=== PATIENT | male | born 1970 | race Caucasian/White ===

== ENCOUNTER 2017-08-04 18:45 | Emergency (ER) | payer OTHER ==
[2017-08-04 19:35] LABS: Appearance,Urine Clear (Clear); Bilirubin,Urine Negative (Negative); Blood,Urine Negative (Negative); Color,Urine Yellow; Glucose,Urine (UA) Negative (Negative); Ketones,Urine Negative (Negative); Leukocyte Esterase,Urine Negative (Negative); Nitrite,Urine Negative (Negative); PH, Urine 5.5 (5.0-8.0); Protein,Urine Negative (Negative); Specific Gravity,Urine 1.012 (1.001-1.035); Urobilinogen,Urine <2.0 mg/dL (<2.0)
[2017-08-04] MEDS ORDERED: LORazepam 2 MG/ML INJ IV STA ×2 (19:51→21:26)
[2017-08-04 19:53] LABS: Amphetamine Screen,Urine Not Detected (NotDetected); Barbiturate Screen,Urine Not Detected (NotDetected); Benzodiazepines Screen,Urine Detected (NotDetected); Cocaine Screen,Urine Not Detected (NotDetected); Methadone Screen, Urine Not Detected (NotDetected); Opiate Screen,Urine Not Detected (NotDetected); Oxycodone Screen, Urine Not Detected (NotDetected); Phencyclidine Screen,Urine Not Detected (NotDetected); Tricyclic Antidepressant,Urine Not Detected (NotDetected); Urn Cannabinoid Scrn Not Detected (NotDetected)
[2017-08-04 20:01] LABS: Basophils % (A) 1 %; Eosinophils # (A) 0.1 k/uL (0-0.7); Eosinophils % (A) 1 %; HCT 48.9 % (39.0-53.0); HGB 16.2 gm/dL (13.0-17.5); Lymphocytes # (A) 2.6 k/uL (1.0-4.8); Lymphocytes % (A) 36 %; MCH 32.7 pg (25.0-35.0); MCV 98.9 fL (80.0-100.0); Mean Platelet Volume 6.5; Monocytes # (A) 0.3 k/uL (0-1.0); Monocytes % (A) 5 %; Neutrophils % (A) 56 %; Platelet Count 348 k/uL (150-450); RBC 4.95 m/uL (4.30-5.90); RDW 12.7 % (11.5-15.5); WBC 7.2 k/uL (3.8-10.6)
[2017-08-04] MEDS: 1: MVI, ADULT NO.4 WITH VIT K 10 ML, THIAMINE 100 MG, FOLIC ACID 1 MG in SODIUM CHLORIDE IV SCH ×4 (20:01)
[2017-08-04 20:10] LABS: INR 1.1 (<1.2); Prothrombin Time 10.4 sec (9.0-12.0)
[2017-08-04 20:11] LABS: ALT 43 U/L (21-72); AST 35 U/L (17-59); Albumin 4.4 g/dL (3.5-5.0); Alkaline Phosphatase 55 U/L (38-126); Amylase 49 U/L (30-110); Anion Gap 11 mmol/L; Blood Urea Nitrogen 9 mg/dL (9-20); Carbon Dioxide 33 mmol/L (22-30); Chloride 100 mmol/L (98-107); Glucose 100 mg/dL (74-99); Lipase 99 U/L (23-300); Magnesium 1.8 mg/dL (1.6-2.3); Phosphorus 4.3 mg/dL (2.5-4.5); Potassium 4.6 mmol/L (3.5-5.1); Sodium 144 mmol/L (137-145); Total Bilirubin 0.4 mg/dL (0.2-1.3); Total Protein 7.5 g/dL (6.3-8.2)
[2017-08-04 20:15] LABS: Alcohol 263 mg/dL
--- NOTE | 2017-08-04 20:41 | CT ---
EXAMINATION TYPE: CT brain wo con DATE OF EXAM: 08/04/2017 COMPARISON: NONE HISTORY: Altered mental status CT DLP: mGycm. Automated Exposure Control for Dose Reduction was Utilized. TECHNIQUE: CT scan of the head is performed without contrast. FINDINGS: Ventricles and sulci appear normal. There is no mass effect nor midline shift. There is n o sign of intracranial hemorrhage. The calvarium is intact. I see no bony destructive process. CONCLUSION: Normal CT scan of the brain.
[2017-08-04] MEDS ORDERED: ZIPRASIDONE 20 MG VIAL IM STA (21:26)
[2017-08-04] MEDS ORDERED: NICOTINE 21MG/24HR PATCH TRANSDERM STA (21:28)
--- NOTE | 2017-08-04 21:52 | ED ---
Psych HPI - General Source: patient Mode of arrival: ambulatory <Adelia Vizcaino - Last Filed: 08/04/17 21:46> <Angel Menchaca - Last Filed: 08/05/17 06:53> - General Chief Complaint: Psychiatric Symptoms Stated Complaint: suicidal,etoh Time Seen by Provider: 08/04/17 18:52 - History of Present Illness Initial Comments: 47-year-old male patient presented to the emergency department today with family for alcohol intoxication, dependence, and increased agitation. Family is concerned because patient has been having hallucinations, has been drinking around the clock every day for the last month, and has not been eating or drinking. They state that he will sleep for 2 hours at a time and then wake up and drink more. They state that he becomes violent when they will not get his alcohol for him. Patient is current active member, and has not been going to work. Patient currently denies any symptoms or concerns. He is upset and angry that he is here. He denies any suicidal or homicidal ideation. Patient denies any recent rash, fever, chills, shortness breath, chest pain, abdominal pain, nausea, vomiting, diarrhea, constipation, back pain, numbness, tingling, dizziness, weakness, hematuria, dysuria, urinary urgency, urinary frequency, headache, visual changes, or any other complaints. (Adelia Vizcaino) - Related Data Home Medications Medication Instructions Recorded Confirmed Cholecalciferol [Vitamin D3] 1,000 unit PO DAILY 08/04/17 08/04/17 FLUoxetine HCL [PROzac] 20 mg PO DAILY 08/04/17 08/04/17 Ginkgo Biloba 500 mg PO DAILY 08/04/17 08/04/17 Multivitamins, Thera [Multivitamin 1 tab PO DAILY 08/04/17 08/04/17 (formulary)] Allergies Allergy/AdvReac Type Severity Reaction Status Date / Time No Known Allergies Allergy Verified 08/04/17 19:20 Review of Systems ROS Other: All systems not noted in ROS Statement are negative. <Adelia Vizcaino - Last Filed: 08/04/17 21:46> ROS Other: All systems not noted in ROS Statement are negative. <Angel Menchaca - Last Filed: 08/05/17 06:53> ROS Statement: Those systems with pertinent positive or pertinent negative responses have been documented in the HPI. Past Medical History Past Medical History: No Reported History Past Surgical History: No Surgical Hx Reported Past Psychological History: Anxiety, Depression Smoking Status: Current some day smoker Past Alcohol Use History: Daily Past Drug Use History: None Reported <CharisAdelia - Last Filed: 08/04/17 21:46> General Exam Limitations: no limitations General appearance: alert, in no apparent distress, other (This is a well- developed, well-nourished adult male patient in no acute distress. Patient is agitated and pacing in the room. Reluctant to give information. Vital signs upon presentation are temperature 97.0F, pulse 83, respirations 18, blood pressure 124/87, pulse ox 100% on room air.) Head exam: Present: atraumatic, normocephalic, normal inspection Eye exam: Present: normal appearance, PERRL, EOMI, nystagmus. Absent: scleral icterus, conjunctival injection, periorbital swelling ENT exam: Present: normal exam, normal oropharynx, mucous membranes moist Neck exam: Present: normal inspection. Absent: tenderness, meningismus, lymphadenopathy Respiratory exam: Present: normal lung sounds bilaterally. Absent: respiratory distress, wheezes, rales, rhonchi, stridor Cardiovascular Exam: Present: normal rhythm, tachycardia, normal heart sounds. Absent: systolic murmur, diastolic murmur, rubs, gallop, clicks GI/Abdominal exam: Present: soft, normal bowel sounds. Absent: distended, tenderness, guarding, rebound, rigid Neurological exam: Present: alert, oriented X3, CN II-XII intact Psychiatric exam: Present: agitated, anxious, manic Skin exam: Present: warm, dry, intact, normal color. Absent: rash <Adelia Vizcaino M - Last Filed: 08/04/17 21:46> Vital Signs 08/04/17 08/04/17 08/04/17 18:52 20:06 22:22 Temperature 97 F L Pulse Rate 83 84 67 Respiratory 18 18 18 Rate Blood Pressure 124/87 120/76 120/67 O2 Sat by Pulse 100 98 96 Oximetry 08/05/17 08/05/17 00:18 05:38 Temperature 96.9 F L Pulse Rate 72 86 Respiratory 16 17 Rate Blood Pressure 115/60 144/85 O2 Sat by Pulse 96 97 Oximetry Medical Decision Making - Lab Data Result diagrams: 08/04/17 19:52 08/04/17 19:52 <Adelia Vizcaino - Last Filed: 08/04/17 21:46> - Lab Data Result diagrams: 08/04/17 19:52 08/04/17 19:52 <Angel Menchaca - Last Filed: 08/05/17 06:53> - Medical Decision Making Patient was evaluated by EPS, he does not meet inpatient psychiatric criteria. He is having no more hallucinations, on reevaluation, patient is fairly certain that these hallucinations were not real and he was just pretending. I personally reevaluated the patient, he is not suicidal or homicidal. He has a plan to abstain from alcohol. He is going to join [employer]. Patient will follow-up with his primary care physician. He will return with worsening symptoms. (Angel Menchaca) - Lab Data Lab Results 08/04/17 08/04/17 08/04/17 Range/Units 19:05 19:52 19:52 WBC 7.2 (3.8-10.6) k/uL RBC 4.95 (4.30-5.90) m/uL Hgb 16.2 (13.0-17.5) gm/dL Hct 48.9 (39.0-53.0) % MCV 98.9 (80.0-100.0) fL MCH 32.7 (25.0-35.0) pg MCHC 33.0 (31.0-37.0) g/dL RDW 12.7 (11.5-15.5) % Plt Count 348 (150-450) k/uL Neutrophils % 56 % Lymphocytes % 36 % Monocytes % 5 % Eosinophils % 1 % Basophils % 1 % Neutrophils # 4.0 (1.3-7.7) k/uL Lymphocytes # 2.6 (1.0-4.8) k/uL Monocytes # 0.3 (0-1.0) k/uL Eosinophils # 0.1 (0-0.7) k/uL Basophils # 0.0 (0-0.2) k/uL PT (9.0-12.0) sec INR (<1.2) Sodium 144 (137-145) mmol/L Potassium 4.6 (3.5-5.1) mmol/L Chloride 100 (98-107) mmol/L Carbon Dioxide 33 H (22-30) mmol/L Anion Gap 11 mmol/L BUN 9 (9-20) mg/dL Creatinine 1.04 (0.66-1.25) mg/dL Est GFR (MDRD) Af Amer >60 (>60 ml/min/1.73 sqM) Est GFR (MDRD) Non-Af >60 (>60 ml/min/1.73 sqM) Glucose 100 H (74-99) mg/dL Calcium 10.0 (8.4-10.2) mg/dL Phosphorus 4.3 (2.5-4.5) mg/dL Magnesium 1.8 (1.6-2.3) mg/dL Total Bilirubin 0.4 (0.2-1.3) mg/dL AST 35 (17-59) U/L ALT 43 (21-72) U/L Alkaline Phosphatase 55 (38-126) U/L Total Protein 7.5 (6.3-8.2) g/dL Albumin 4.4 (3.5-5.0) g/dL Amylase 49 (30-110) U/L Lipase 99 (23-300) U/L Urine Color Yellow Urine Appearance Clear (Clear) Urine pH 5.5 (5.0-8.0) Ur Specific [place] 1.012 (1.001-1.035) Urine Protein Negative (Negative) Urine Glucose (UA) Negative (Negative) Urine Ketones Negative (Negative) Urine Blood Negative (Negative) Urine Nitrite Negative (Negative) Urine Bilirubin Negative (Negative) Urine Urobilinogen <2.0 (<2.0) mg/dL Ur Leukocyte Esterase Negative (Negative) Urine Opiates Screen Not Detected (NotDetected) Ur Oxycodone Screen Not Detected (NotDetected) Urine Methadone Screen Not Detected (NotDetected) Ur Propoxyphene Screen Not Detected (NotDetected) Ur Barbiturates Screen Not Detected (NotDetected) U Tricyclic Antidepress Not Detected (NotDetected) Ur Phencyclidine Scrn Not Detected (NotDetected) Ur Amphetamines Screen Not Detected (NotDetected) U Methamphetamines Scrn Not Detected (NotDetected) U Benzodiazepines Scrn Detected H (NotDetected) Urine Cocaine Screen Not Detected (NotDetected) U Marijuana (THC) Screen Not Detected (NotDetected) Serum Alcohol 263 mg/dL 08/04/17 Range/Units 19:52 WBC (3.8-10.6) k/uL RBC (4.30-5.90) m/uL Hgb (13.0-17.5) gm/dL Hct (39.0-53.0) % MCV (80.0-100.0) fL MCH (25.0-35.0) pg MCHC (31.0-37.0) g/dL RDW (11.5-15.5) % Plt Count (150-450) k/uL Neutrophils % % Lymphocytes % % Monocytes % % Eosinophils % % Basophils % % Neutrophils # (1.3-7.7) k/uL Lymphocytes # (1.0-4.8) k/uL Monocytes # (0-1.0) k/uL Eosinophils # (0-0.7) k/uL Basophils # (0-0.2) k/uL PT 10.4 (9.0-12.0) sec INR 1.1 (<1.2) Sodium (137-145) mmol/L Potassium (3.5-5.1) mmol/L Chloride (98-107) mmol/L Carbon Dioxide (22-30) mmol/L Anion Gap mmol/L BUN (9-20) mg/dL Creatinine (0.66-1.25) mg/dL Est GFR (MDRD) Af Amer (>60 ml/min/1.73 sqM) Est GFR (MDRD) Non-Af (>60 ml/min/1.73 sqM) Glucose (74-99) mg/dL Calcium (8.4-10.2) mg/dL Phosphorus (2.5-4.5) mg/dL Magnesium (1.6-2.3) mg/dL Total Bilirubin (0.2-1.3) mg/dL AST (17-59) U/L ALT (21-72) U/L Alkaline Phosphatase (38-126) U/L Total Protein (6.3-8.2) g/dL Albumin (3.5-5.0) g/dL Amylase (30-110) U/L Lipase (23-300) U/L Urine Color Urine Appearance (Clear) Urine pH (5.0-8.0) Ur Specific [place] (1.001-1.035) Urine Protein (Negative) Urine Glucose (UA) (Negative) Urine Ketones (Negative) Urine Blood (Negative) Urine Nitrite (Negative) Urine Bilirubin (Negative) Urine Urobilinogen (<2.0) mg/dL Ur Leukocyte Esterase (Negative) Urine Opiates Screen (NotDetected) Ur Oxycodone Screen (NotDetected) Urine Methadone Screen (NotDetected) Ur Propoxyphene Screen (NotDetected) Ur Barbiturates Screen (NotDetected) U Tricyclic Antidepress (NotDetected) Ur Phencyclidine Scrn (NotDetected) Ur Amphetamines Screen (NotDetected) U Methamphetamines Scrn (NotDetected) U Benzodiazepines Scrn (NotDetected) Urine Cocaine Screen (NotDetected) U Marijuana (THC) Screen (NotDetected) Serum Alcohol mg/dL Disposition <Adelia Vizcaino M - Last Filed: 08/04/17 21:46> Time of Disposition: 06:52 <Angel Menchaca - Last Filed: 08/05/17 06:53> Clinical Impression: Acute alcohol intoxication Disposition: HOME SELF-CARE Condition: Good Instructions: Alcohol Intoxication (ED) Additional Instructions: Patient will follow-up with primary care physician. Referrals: Nonstaff,Physician [Primary Care Provider] - 1-2 days
[2017-08-05] MEDS ORDERED: MENTHOL (NICE) LOZENGE MUCOUS MEM PRN (05:56)
[2017-08-05] MEDS: 1: MVI, ADULT NO.4 WITH VIT K 10 ML, THIAMINE 100 MG, FOLIC ACID 1 MG in SODIUM CHLORIDE IV SCH ×4 (06:57)
[2017-08-05 23:12] VITALS: BP 138/79; PULSE 90; RESP 17; TEMP 96.9
== END 2017-08-05 07:10 | disposition home or self-care (01) ==
LOC: EC 18:45
DX: F10.129 Alcohol abuse with intoxication, unspecified (principal); R45.1 Restlessness and agitation; R44.3 Hallucinations, unspecified; F32.9 Major depressive disorder, single episode, unspecified; F41.9 Anxiety disorder, unspecified; F17.200 Nicotine dependence, unspecified, uncomplicated; Z79.899 Other long term (current) drug therapy; Z53.29 Procedure and treatment not carried out because of patient's decision for other reasons
CPT/HCPCS: 82075; 36415; 80053; 82150; 83690; 83735; 84100; 85025; 85610; 81003; 80306; 80320; 70450; 99284; 96374; 96376; 96372; J2060; J3411; J3486

== ENCOUNTER 2017-10-26 16:59 | Emergency (ER) | payer OTHER ==
[2017-10-26] MEDS ORDERED: LORazepam 2 MG/ML INJ IM STA (17:15)
[2017-10-26] MEDS ORDERED: HALOPERIDOL LACTATE 5 MG/ML 1 ML VIAL IM STA (17:16)
[2017-10-26 18:25] LABS: Amphetamine Screen,Urine Not Detected (NotDetected); Barbiturate Screen,Urine Not Detected (NotDetected); Benzodiazepines Screen,Urine Not Detected (NotDetected); Cocaine Screen,Urine Not Detected (NotDetected); Methadone Screen, Urine Not Detected (NotDetected); Opiate Screen,Urine Not Detected (NotDetected); Oxycodone Screen, Urine Not Detected (NotDetected); Phencyclidine Screen,Urine Not Detected (NotDetected); Tricyclic Antidepressant,Urine Not Detected (NotDetected); Urn Cannabinoid Scrn Not Detected (NotDetected)
--- NOTE | 2017-10-26 19:29 | ED ---
Psych HPI - General Source: patient, family, EMS Mode of arrival: EMS <Angel Kunz - Last Filed: 10/26/17 22:50> <Angel Menchaca - Last Filed: 10/27/17 08:30> - General Chief Complaint: Psychiatric Symptoms Stated Complaint: mental health Time Seen by Provider: 10/26/17 17:15 - History of Present Illness Initial Comments: This 47-year-old white male presents by EMS with police escort. He apparently was quite combative earlier today at the medical clinic. He apparently has a history of many years of service with a history of posttraumatic stress disorder. He apparently was also drinking today. His girlfriend states that he had a pint of alcohol as well as 12 beers. The patient states that he only had 2 beers. He is quite uncooperative initially but does eventually agree to an IM injection to help settle him down. Physical restraints were not necessary at this time. It is difficult to get an accurate history as he is quite worked up. He denies any actual chest pain or shortness of breath. He just states that he wants to leave. No other identifiable complaints or modifying factors but once again accurate history is difficult to obtain. (Angel Kunz) - Related Data Home Medications Medication Instructions Recorded Confirmed Cholecalciferol [Vitamin D3] 1,000 unit PO DAILY 08/04/17 08/04/17 FLUoxetine HCL [PROzac] 20 mg PO DAILY 08/04/17 08/04/17 Ginkgo Biloba 500 mg PO DAILY 08/04/17 08/04/17 Multivitamins, Thera [Multivitamin 1 tab PO DAILY 08/04/17 08/04/17 (formulary)] Allergies Allergy/AdvReac Type Severity Reaction Status Date / Time No Known Allergies Allergy Verified 08/04/17 19:20 Review of Systems ROS Other: All systems not noted in ROS Statement are negative. <Angel Kunz - Last Filed: 10/26/17 22:50> ROS Other: All systems not noted in ROS Statement are negative. <Angel Menchaca - Last Filed: 10/27/17 08:30> ROS Statement: Those systems with pertinent positive or pertinent negative responses have been documented in the HPI. Past Medical History Past Medical History: No Reported History History of Any Multi-Drug Resistant Organisms: None Reported Past Surgical History: Orthopedic Surgery Past Psychological History: Anxiety, Depression, PTSD Smoking Status: Current some day smoker Past Alcohol Use History: Daily, Heavy Past Drug Use History: None Reported <Angel Kunz - Last Filed: 10/26/17 22:50> General Exam Limitations: altered mental status <Angel Kunz - Last Filed: 10/26/17 22:50> <Angel Menchaca - Last Filed: 10/27/17 08:30> - General Exam Comments Initial Comments: GENERAL: The patient is well nourished and well hydrated. VITAL SIGNS: Heart rate, blood pressure, respiratory rate reviewed as recorded in nurse's notes. EYES: Pupils are round and reactive. Extraocular movements are intact. No conjunctival / lid redness or swelling. ENT: No external evidence of injury, swelling, or ecchymosis. Airway is patent. Throat is clear. NECK: Nontender. No swelling or evidence of injury. No subcutaneous emphysema. Trachea is midline. No thyroid mass. HEART: Regular rate and rhythm. Good peripheral pulses. LUNGS/CHEST: Breath sounds clear and equal bilaterally. No rales, rhonchi, or wheezes. No ecchymosis, subcutaneous emphysema, or tenderness. ABDOMEN: Abdomen soft without tenderness. No palpable masses or organomegaly. No peritoneal signs. No abdominal wall swelling or ecchymosis. EXTREMITIES: No extremity tenderness. Normal muscle tone and function. No thoracolumbar tenderness. NEUROLOGIC: Sensation is grossly intact. Cranial nerve exam reveals face is symmetrical, tongue is midline, speech is clear. SKIN: No abrasions or ecchymosis is noted. No induration or masses noted. PSYCHIATRIC: Alert and quite concerned conversive. He does not appear to be combative to me but apparently was previously. He is not very cooperative and does voice multiple profanities. (Angel Kunz) Vital Signs 10/26/17 10/27/17 17:07 06:28 Temperature 98.3 F 98.2 F Pulse Rate 99 102 H Respiratory 16 18 Rate Blood Pressure 134/94 139/81 O2 Sat by Pulse 99 98 Oximetry Medical Decision Making <Angel Kunz - Last Filed: 10/26/17 22:50> - Lab Data Result diagrams: 10/27/17 07:00 10/27/17 07:00 <Angel Menchaca - Last Filed: 10/27/17 08:30> - Medical Decision Making The patient was seen and examined. His breath alcohol test was 0.227. His urine drug screen is negative. He received 2 mg of Ativan and 5 mg of Haldol and does settle down quite a bit. He will be watched until sober and reevaluated. Further care will be passed on to oncoming physician. On recheck , he is sleeping. (Angel Kunz) Patient was observed awaiting clinical sobriety. He was evaluated by EPS, he does meet inpatient criteria. Transfer to the [facility] is pending at this time. Patient is medically cleared prior to transfer, CBC, BMP were obtained, these were within normal limits. Blood alcohol level is 0. Patient currently awaiting bed assignment and final transfer. 0830. (Angel Menchaca) - Lab Data Lab Results 10/26/17 10/27/17 10/27/17 Range/Units 18:00 07:00 07:00 WBC 6.7 (3.8-10.6) k/uL RBC 4.88 (4.30-5.90) m/uL Hgb 16.1 (13.0-17.5) gm/dL Hct 44.9 (39.0-53.0) % MCV 91.9 (80.0-100.0) fL MCH 33.0 (25.0-35.0) pg MCHC 35.9 (31.0-37.0) g/dL RDW 12.1 (11.5-15.5) % Plt Count 370 (150-450) k/uL Neutrophils % 65 % Lymphocytes % 25 % Monocytes % 6 % Eosinophils % 2 % Basophils % 1 % Neutrophils # 4.3 (1.3-7.7) k/uL Lymphocytes # 1.7 (1.0-4.8) k/uL Monocytes # 0.4 (0-1.0) k/uL Eosinophils # 0.1 (0-0.7) k/uL Basophils # 0.0 (0-0.2) k/uL Sodium 138 (137-145) mmol/L Potassium 5.0 (3.5-5.1) mmol/L Chloride 98 (98-107) mmol/L Carbon Dioxide 29 (22-30) mmol/L Anion Gap 11 mmol/L BUN 14 (9-20) mg/dL Creatinine 0.83 (0.66-1.25) mg/dL Est GFR (CKD-EPI)AfAm >90 (>60 ml/min/1.73 sqM) Est GFR (CKD-EPI)NonAf >90 (>60 ml/min/1.73 sqM) Glucose 77 (74-99) mg/dL Calcium 9.7 (8.4-10.2) mg/dL Urine Opiates Screen Not Detected (NotDetected) Ur Oxycodone Screen Not Detected (NotDetected) Urine Methadone Screen Not Detected (NotDetected) Ur Propoxyphene Screen Not Detected (NotDetected) Ur Barbiturates Screen Not Detected (NotDetected) U Tricyclic Antidepress Not Detected (NotDetected) Ur Phencyclidine Scrn Not Detected (NotDetected) Ur Amphetamines Screen Not Detected (NotDetected) U Methamphetamines Scrn Not Detected (NotDetected) U Benzodiazepines Scrn Not Detected (NotDetected) Urine Cocaine Screen Not Detected (NotDetected) U Marijuana (THC) Screen Not Detected (NotDetected) Disposition <Angel Kunz - Last Filed: 10/26/17 22:50> - Out of Hospital Transfer - Req. Specs Out of Hospital Transfer - Requested Specifics: Psychiatric Non-ICU ([facility]) <Angel Menchaca - Last Filed: 10/27/17 08:30> Clinical Impression: Alcohol intoxication, Combative behavior, Depression Disposition: OTHER INSTITUTION NOT DEFINED Condition: Fair Referrals: None,Stated [Primary Care Provider] - 1-2 days
[2017-10-27] MEDS ORDERED: LORazepam 1 MG TAB PO STA (05:15)
[2017-10-27 06:29] VITALS: RESP 18
[2017-10-27 07:42] LABS: Anion Gap 11 mmol/L; Basophils % (A) 1 %; Blood Urea Nitrogen 14 mg/dL (9-20); Calcium 9.7 mg/dL (8.4-10.2); Carbon Dioxide 29 mmol/L (22-30); Chloride 98 mmol/L (98-107); Eosinophils # (A) 0.1 k/uL (0-0.7); Eosinophils % (A) 2 %; Glucose 77 mg/dL (74-99); HCT 44.9 % (39.0-53.0); HGB 16.1 gm/dL (13.0-17.5); Lymphocytes # (A) 1.7 k/uL (1.0-4.8); Lymphocytes % (A) 25 %; MCHC 35.9 g/dL (31.0-37.0); MCV 91.9 fL (80.0-100.0); Mean Platelet Volume 6.4; Monocytes # (A) 0.4 k/uL (0-1.0); Monocytes % (A) 6 %; Neutrophils # (A) 4.3 k/uL (1.3-7.7); Neutrophils % (A) 65 %; Platelet Count 370 k/uL (150-450); RBC 4.88 m/uL (4.30-5.90); RDW 12.1 % (11.5-15.5); Sodium 138 mmol/L (137-145); WBC 6.7 k/uL (3.8-10.6)
[2017-10-27 15:16] VITALS: BP 129/87; PULSE 99; TEMP 98.4
== END 2017-10-27 15:16 | disposition other institution (70) ==
LOC: EC 16:59
DX: F32.9 Major depressive disorder, single episode, unspecified (principal); F91.9 Conduct disorder, unspecified; F10.120 Alcohol abuse with intoxication, uncomplicated; F43.10 Post-traumatic stress disorder, unspecified; F41.9 Anxiety disorder, unspecified; F17.200 Nicotine dependence, unspecified, uncomplicated; Z79.899 Other long term (current) drug therapy
CPT/HCPCS: 82075; 36415; 93005; 80048; 85025; 80306; 99285; 96372 ×2; J2060; J1630

== ENCOUNTER 2017-11-13 07:52 | Emergency (ER) | payer OTHER ==
[2017-11-13 08:03] VITALS: RESP 18; TEMP 98
--- NOTE | 2017-11-13 08:52 | ED ---
General Adult HPI - General Chief complaint: Alcohol Stated complaint: Withdrawls from Alcohol Time Seen by Provider: 11/13/17 08:33 Source: patient, RN notes reviewed Mode of arrival: ambulatory Limitations: no limitations - History of Present Illness Initial comments: 47-year-old male presenting to the emergency room today wanting to have his liver enzymes checked. Patient does admit that he was recently drinking heavily for the last for 5 days. He states he stopped over 24 hours ago. He states he was trying to treat himself taking some baclofen at home for which ralluis. States he went to an urgent care last night had some work obtained but they were unable to do liver enzymes and was advised come here to the hospital happened checked. Patient states that at this time he is feeling better. He states he still having some shaking. He feels some pain to the left side which is the reason why he was taking the baclofen from chronic injuries. Patient states that he at this time does not want to stay here in the hospital. He states he would like to have his liver enzymes checked but he would rather go home does not wait for results. Patient denies any other complaints at this time. Patient denies any recent fever, chills, shortness of breath, chest pain, dysuria or hematuria, constipation or diarrhea, headaches or visual changes, or any other complaints. - Related Data Home Medications Medication Instructions Recorded Confirmed Cholecalciferol [Vitamin D3] 1,000 unit PO DAILY 08/04/17 11/13/17 FLUoxetine HCL [PROzac] 20 mg PO DAILY 08/04/17 11/13/17 Multivitamins, Thera [Multivitamin 1 tab PO DAILY 08/04/17 11/13/17 (formulary)] buPROPion HCL [Wellbutrin XL] 300 mg PO DAILY 10/27/17 11/13/17 Ascorbic Acid [Vitamin C] 500 mg PO DAILY 11/13/17 11/13/17 Baclofen [Lioresal] 5 mg PO TID 11/13/17 11/13/17 Glucosam/Chond/Hyalu/Cf Borate 1 tab PO DAILY 11/13/17 11/13/17 [[employer] Tablet] Naproxen Sodium [Aleve] 440 mg PO BID 11/13/17 11/13/17 hydrALAZINE HCL [Apresoline] 10 mg PO TID 11/13/17 11/13/17 Previous Rx's Medication Instructions Recorded Ondansetron Odt [Zofran ODT] 4 mg PO Q8HR PRN #20 tab 11/13/17 chlordiazePOXIDE HCl [Librium] 25 mg PO DIRECTED #22 capsule 11/13/17 cloNIDine HCL [Catapres] 0.1 mg PO BID #6 tab 11/13/17 Allergies Allergy/AdvReac Type Severity Reaction Status Date / Time No Known Allergies Allergy Verified 11/13/17 08:18 Review of Systems ROS Statement: Those systems with pertinent positive or pertinent negative responses have been documented in the HPI. ROS Other: All systems not noted in ROS Statement are negative. Past Medical History Past Medical History: Hypertension Additional Past Medical History / Comment(s): Alcohol abuse History of Any Multi-Drug Resistant Organisms: None Reported Past Surgical History: Orthopedic Surgery Additional Past Surgical History / Comment(s): Herniated discs in back Past Psychological History: Anxiety, Depression, PTSD Smoking Status: Current every day smoker Past Alcohol Use History: Daily, Heavy Past Drug Use History: None Reported General Exam - General Exam Comments Initial Comments: General: The patient is awake and alert, in no distress, and does not appear acutely ill. Eye: Pupils are equal, round and reactive to light, extra-ocular movements are intact. No nystagmus. There is normal conjunctiva bilaterally. No signs of icterus. Ears, nose, mouth and throat: There are moist mucous membranes and no oral lesions. Neck: The neck is supple, there is no tenderness or JVD. Cardiovascular: There is a regular rate and rhythm. No murmur, rub or gallop is appreciated. Respiratory: Lungs are clear to auscultation, respirations are non-labored, breath sounds are equal. No wheezes, stridor, rales, or rhonchi. Gastrointestinal: Soft, non-distended, non-tender abdomen without masses or organomegaly noted. There is no rebound or guarding present. No CVA tenderness. Musculoskeletal: Normal ROM, no tenderness. Strength 5/5. Sensation intact. Pulses equal bilaterally 2+. Neurological: A&O x 3. CN II-XII intact, There are no obvious motor or sensory deficits. Coordination appears grossly intact. Speech is normal. Skin: Skin is warm and dry and no rashes or lesions are noted. Psychiatric: Cooperative, appropriate mood & affect, normal judgment. Limitations: no limitations Course Vital Signs 11/13/17 07:55 Temperature 98.0 F Pulse Rate 97 Respiratory 18 Rate Blood Pressure 159/100 O2 Sat by Pulse 98 Oximetry Medical Decision Making - Medical Decision Making Patient at this time shows no signs of distress. States is not mostly in the hospital. He states he would like to have his liver enzymes checked. He states he had the rest of blood work done yesterday. Patient states he had Librium in the past for withdrawal symptoms states works well for him. He'll be provided prescriptions for clonidine, Librium, Zofran. Patient's advised follow-up with rehab and family physician. Patient will have his blood drawn and and a CMP ordered. Patient will be discharged. He is advised to follow-up for his results as he does not want to stay in the hospital for them. Disposition Clinical Impression: Alcohol withdrawal Disposition: HOME SELF-CARE Condition: Good Instructions: Alcohol Withdrawal (ED) Prescriptions: chlordiazePOXIDE HCl [Librium] 25 mg PO DIRECTED #22 capsule cloNIDine HCL [Catapres] 0.1 mg PO BID #6 tab Ondansetron Odt [Zofran ODT] 4 mg PO Q8HR PRN #20 tab PRN Reason: Nausea Referrals: None,Stated [Primary Care Provider] - 1-2 days Time of Disposition: 08:51
[2017-11-13 09:14] VITALS: BP 152/90; PULSE 84
[2017-11-13 09:36] LABS: ALT 31 U/L (21-72); AST 49 U/L (17-59); Albumin 4.3 g/dL (3.5-5.0); Alkaline Phosphatase 90 U/L (38-126); Anion Gap 10 mmol/L; Blood Urea Nitrogen 14 mg/dL (9-20); Calcium 10.4 mg/dL (8.4-10.2); Carbon Dioxide 32 mmol/L (22-30); Chloride 96 mmol/L (98-107); Glucose 108 mg/dL (74-99); Potassium 4.7 mmol/L (3.5-5.1); Sodium 138 mmol/L (137-145); Total Bilirubin 0.5 mg/dL (0.2-1.3); Total Protein 7.6 g/dL (6.3-8.2)
== END 2017-11-13 09:14 | disposition home or self-care (01) ==
LOC: EC 07:52
DX: F10.239 Alcohol dependence with withdrawal, unspecified (principal); I10 Essential (primary) hypertension; F32.9 Major depressive disorder, single episode, unspecified; F41.9 Anxiety disorder, unspecified; F43.10 Post-traumatic stress disorder, unspecified; F17.200 Nicotine dependence, unspecified, uncomplicated; Z79.1 Long term (current) use of non-steroidal anti-inflammatories (NSAID); Z79.899 Other long term (current) drug therapy
CPT/HCPCS: 36415; 80053; 99284

== ENCOUNTER → 2018-11-12 | Outpatient (CLI) | payer OTHER ==
--- NOTE | 2018-11-12 15:19 | MR ---
EXAMINATION TYPE: MR shoulder LT wo con DATE OF EXAM: 11/12/2018 COMPARISON: None HISTORY: Left shoulder pain TECHNIQUE: Multiplanar, multisequence imaging of the left shoulder is performed without contrast. FINDINGS: Rotator Cuff: There is mild supraspinatus tendinopathy with alteration of the intrinsic signal of the insertional fibers. There is also bursal surface fraying of the supraspinatus. This is seen deep to moderate acromioclavicular arthropathy mildly impressing upon the supraspinatus. The infraspinatus, t eres minor, and subscapularis demonstrate normal signal and muscle volume. Acromioclavicular Joint: Moderate acromioclavicular arthropathy with slight impression upon the supra spinatus as discussed above. There is bone marrow edema at the acromioclavicular joint, subchondral c ystic change, and capsular hypertrophy. Only very small osteophytes are seen. No acromial downsloping . Acromion is type II. Glenohumeral Joint: No significant glenohumeral joint space narrowing. Very mild chondral thinning is seen as there is heterogeneity of the glenohumeral chondral surface. Labrum: The labrum appears grossly intact given limitation of non-arthrogram study. Biceps Tendon: The long head of biceps is in normal location within bicipital groove. Bone marrow signal: No focal abnormal marrow signal is appreciated. Other: Trace amount of fluid is seen within the subcoracoid bursa and subacromial/subdeltoid bursa. IMPRESSION: 1. No evidence of rotator cuff tear. 2. Mild supraspinatus tendinopathy and slight fraying of the bursal surface fibers. 3. Moderate acromioclavicular arthropathy with some bone marrow edema of the opposing surface of the acromion and clavicle. This also creates very minimal impression upon the supraspinatus without signi ficant internal impingement. 4. Trace amount of fluid in the subcoracoid and subacromial/subdeltoid bursa may clinically relate to bursitis.
== END ==
LOC: RADMRIMAIN 13:02
DX: M75.92 Shoulder lesion, unspecified, left shoulder (principal); M19.012 Primary osteoarthritis, left shoulder; R60.0 Localized edema

== ENCOUNTER 2018-11-13 23:55 | Inpatient (IN) | payer OTHER ==
[2018-11-13] MEDS ORDERED: SODIUM CHLORIDE 0.9% 1,000 ML IV STA (23:58)
[2018-11-13] MEDS ORDERED: SODIUM CHLORIDE 0.9% 2,000 ML IV ONE (23:59)
[2018-11-14] MEDS ORDERED: LORazepam 2 MG/ML INJ IV STA (00:10)
[2018-11-14 00:20] LABS: Glucose,Whole Blood 166 mg/dL (75-99)
--- NOTE | 2018-11-14 00:39 | ED ---
Overdose HPI - General Chief Complaint: Overdose Stated Complaint: Overdose Time Seen by Provider: 11/13/18 23:58 Source: patient, EMS Mode of arrival: EMS Limitations: altered mental status - History of Present Illness Initial Comments: Titi is a 48-year-old male past medical history of alcohol abuse who presents the emergency department today for evaluation of possible overdose. History is provided by his significant other reports that she came home this evening after not seeing the patient for most of the day and he seemed to be acting on he told her he had taken 10 of her 10 mg baclofen as well as 120 mg of Prozac and 4 pills of 25 mg hydroxyzine. Patient initially told her significant other that he is feeling fine and didn't need to come the hospital however she noted that he seemed to have dilated eyes, twitching and sweating and she decided to call EMS for transport to the hospital. - Related Data Home Medications Medication Instructions Recorded Confirmed Cholecalciferol [Vitamin D3] 1,000 unit PO DAILY 08/04/17 11/13/17 FLUoxetine HCL [PROzac] 20 mg PO DAILY 08/04/17 11/13/17 Multivitamins, Thera [Multivitamin 1 tab PO DAILY 08/04/17 11/13/17 (formulary)] buPROPion HCL [Wellbutrin XL] 300 mg PO DAILY 10/27/17 11/13/17 Ascorbic Acid [Vitamin C] 500 mg PO DAILY 11/13/17 11/13/17 Baclofen [Lioresal] 5 mg PO TID 11/13/17 11/13/17 Glucosam/Chond/Hyalu/Cf Borate 1 tab PO DAILY 11/13/17 11/13/17 [Move Free Joint Health Tablet] Naproxen Sodium [Aleve] 440 mg PO BID 11/13/17 11/13/17 hydrALAZINE HCL [Apresoline] 10 mg PO TID 11/13/17 11/13/17 Previous Rx's Medication Instructions Recorded Ondansetron Odt [Zofran ODT] 4 mg PO Q8HR PRN #20 tab 11/13/17 chlordiazePOXIDE HCl [Librium] 25 mg PO DIRECTED #22 capsule 11/13/17 cloNIDine HCL [Catapres] 0.1 mg PO BID #6 tab 11/13/17 Allergies Allergy/AdvReac Type Severity Reaction Status Date / Time No Known Allergies Allergy Verified 11/13/17 08:18 Review of Systems ROS Statement: Those systems with pertinent positive or pertinent negative responses have been documented in the HPI. ROS Other: All systems not noted in ROS Statement are negative. Limitations: ROS unobtainable due to patients medical condition (altered) Past Medical History Past Medical History: Hypertension Additional Past Medical History / Comment(s): Alcohol abuse History of Any Multi-Drug Resistant Organisms: None Reported Past Surgical History: Orthopedic Surgery Additional Past Surgical History / Comment(s): Herniated discs in back Past Psychological History: Anxiety, Depression, PTSD Smoking Status: Current every day smoker Past Alcohol Use History: Daily, Heavy Past Drug Use History: None Reported General Exam - General Exam Comments Initial Comments: Physical Exam GENERAL: Patient is well-developed and well-nourished. Patient is minimally responsive, drooling diaphoretic with dilated pupils HENT: Normocephalic, Atraumatic. EYES: 4 mm reactive bilaterally PULMONARY: Unlabored respirations. No audible rales rhonchi or wheezing was noted. CARDIOVASCULAR: There is a regular rate and rhythm without any murmurs gallops or rubs. ABDOMEN: Soft and nontender with normal bowel sounds. SKIN: Diaphoretic : Deferred NEUROLOGIC: Moans to painful stimuli MUSCULOSKELETAL: No obvious injury PSYCHIATRIC: Unable to assess Limitations: no limitations Limitations: altered mental status Course Vital Signs 11/14/18 11/14/18 11/14/18 00:02 00:21 00:30 Temperature 97.4 F L Pulse Rate 75 71 82 Respiratory 22 17 16 Rate Blood Pressure 159/101 159/101 140/88 O2 Sat by Pulse 97 Oximetry 11/14/18 11/14/18 11/14/18 00:40 00:50 01:00 Temperature Pulse Rate 72 68 69 Respiratory 19 17 12 Rate Blood Pressure 138/87 146/99 146/99 O2 Sat by Pulse Oximetry 11/14/18 11/14/18 01:10 01:29 Temperature Pulse Rate 71 78 Respiratory 12 17 Rate Blood Pressure 105/87 133/84 O2 Sat by Pulse 98 Oximetry Procedures - Intubation Sedative: Etomidate Paralytic: Rocuronium Laryngoscope: Rai Size: 4 ET Tube Size: 8 ET Tube Uncuffed: No Tube Secured Depth (cm): 22 Tube Secured Location: teeth Tube Placement Confirmation: visualized tube passing through cords, equal breath sounds bilaterally, no breath sounds over epigastrium, confirmation by capnometry Patient Tolerated Procedure: well Intubation Complications: none Medical Decision Making - Medical Decision Making Patient was seen and evaluated history was obtained from EMS and girlfriend who arrived at bedside 48-year-old male with a history of alcohol abuse presenting with her mental status likely secondary to polysubstance overdose Patient's significant other reports 100 mg of baclofen, 120 mg of Prozac, 100 mg of hydroxyzine Upon initial evaluation patient was moaning and would respond to his name however he progressively became less responsive patient care was discussed with poison control who recommended intubation as baclofen overdose can cause cee ent's become unresponsive and can mimic brain . Poison control also recommended optimization of electrolytes and serial EKGs Patient's girlfriend was updated on this plan The patient was intubated Once intubated a head CT was ordered to evaluate for other causes of altered mental status Patient care was discussed with ICU attending Dr. Chand who accepts admission to the ICU - Lab Data Result diagrams: 11/14/18 00:30 11/14/18 00:30 Lab Results 11/14/18 11/14/18 11/14/18 Range/Units 00:19 00:30 00:30 WBC (3.8-10.6) k/uL RBC (4.30-5.90) m/uL Hgb (13.0-17.5) gm/dL Hct (39.0-53.0) % MCV (80.0-100.0) fL MCH (25.0-35.0) pg MCHC (31.0-37.0) g/dL RDW (11.5-15.5) % Plt Count (150-450) k/uL Neutrophils % % Lymphocytes % % Monocytes % % Eosinophils % % Basophils % % Neutrophils # (1.3-7.7) k/uL Lymphocytes # (1.0-4.8) k/uL Monocytes # (0-1.0) k/uL Eosinophils # (0-0.7) k/uL Basophils # (0-0.2) k/uL PT (9.0-12.0) sec INR (<1.2) Sodium 137 (137-145) mmol/L Potassium 3.8 (3.5-5.1) mmol/L Chloride 102 (98-107) mmol/L Carbon Dioxide 26 (22-30) mmol/L Anion Gap 9 mmol/L BUN 7 L (9-20) mg/dL Creatinine 0.73 (0.66-1.25) mg/dL Est GFR (CKD-EPI)AfAm >90 (>60 ml/min/1.73 sqM) Est GFR (CKD-EPI)NonAf >90 (>60 ml/min/1.73 sqM) Glucose 155 H (74-99) mg/dL POC Glucose (mg/dL) 166 H (75-99) mg/dL POC Glu Audio Director ID Nancy Camacho Plasma Lactic Acid Tj 1.7 (0.7-2.0) mmol/L Calcium 9.9 (8.4-10.2) mg/dL Magnesium 1.6 (1.6-2.3) mg/dL Total Bilirubin 0.5 (0.2-1.3) mg/dL AST 35 (17-59) U/L ALT 59 (21-72) U/L Alkaline Phosphatase 80 (38-126) U/L Total Protein 7.0 (6.3-8.2) g/dL Albumin 4.4 (3.5-5.0) g/dL Salicylates <1.0 mg/dL Urine Opiates Screen (NotDetected) Ur Oxycodone Screen (NotDetected) Urine Methadone Screen (NotDetected) Ur Propoxyphene Screen (NotDetected) Acetaminophen <10.0 ug/mL Ur Barbiturates Screen (NotDetected) U Tricyclic Antidepress (NotDetected) Ur Phencyclidine Scrn (NotDetected) Ur Amphetamines Screen (NotDetected) U Methamphetamines Scrn (NotDetected) U Benzodiazepines Scrn (NotDetected) Urine Cocaine Screen (NotDetected) U Marijuana (THC) Screen (NotDetected) Serum Alcohol <10 mg/dL 11/14/18 11/14/18 11/14/18 Range/Units 00:30 00:30 00:30 WBC 18.7 H (3.8-10.6) k/uL RBC 4.69 (4.30-5.90) m/uL Hgb 14.0 (13.0-17.5) gm/dL Hct 42.4 (39.0-53.0) % MCV 90.4 (80.0-100.0) fL MCH 29.8 (25.0-35.0) pg MCHC 32.9 (31.0-37.0) g/dL RDW 12.9 (11.5-15.5) % Plt Count 281 (150-450) k/uL Neutrophils % 85 % Lymphocytes % 9 % Monocytes % 5 % Eosinophils % 0 % Basophils % 0 % Neutrophils # 15.9 H (1.3-7.7) k/uL Lymphocytes # 1.7 (1.0-4.8) k/uL Monocytes # 0.9 (0-1.0) k/uL Eosinophils # 0.1 (0-0.7) k/uL Basophils # 0.0 (0-0.2) k/uL PT 11.2 (9.0-12.0) sec INR 1.1 (<1.2) Sodium (137-145) mmol/L Potassium (3.5-5.1) mmol/L Chloride (98-107) mmol/L Carbon Dioxide (22-30) mmol/L Anion Gap mmol/L BUN (9-20) mg/dL Creatinine (0.66-1.25) mg/dL Est GFR (CKD-EPI)AfAm (>60 ml/min/1.73 sqM) Est GFR (CKD-EPI)NonAf (>60 ml/min/1.73 sqM) Glucose (74-99) mg/dL POC Glucose (mg/dL) (75-99) mg/dL POC Glu Audio Director ID Plasma Lactic Acid Tj (0.7-2.0) mmol/L Calcium (8.4-10.2) mg/dL Magnesium (1.6-2.3) mg/dL Total Bilirubin (0.2-1.3) mg/dL AST (17-59) U/L ALT (21-72) U/L Alkaline Phosphatase (38-126) U/L Total Protein (6.3-8.2) g/dL Albumin (3.5-5.0) g/dL Salicylates mg/dL Urine Opiates Screen Not Detected (NotDetected) Ur Oxycodone Screen Not Detected (NotDetected) Urine Methadone Screen Not Detected (NotDetected) Ur Propoxyphene Screen Not Detected (NotDetected) Acetaminophen ug/mL Ur Barbiturates Screen Not Detected (NotDetected) U Tricyclic Antidepress Not Detected (NotDetected) Ur Phencyclidine Scrn Not Detected (NotDetected) Ur Amphetamines Screen Not Detected (NotDetected) U Methamphetamines Scrn Not Detected (NotDetected) U Benzodiazepines Scrn Detected H (NotDetected) Urine Cocaine Screen Not Detected (NotDetected) U Marijuana (THC) Screen Not Detected (NotDetected) Serum Alcohol mg/dL - EKG Data -: EKG Interpreted by Me EKG Comments: EKG was obtained at 12:44 AM Rate is 70 rhythm is sinus there is a normal axis, VT is 1:30 QRS is 98 QTc is prolonged at [address] elevations or depressions there is no evidence of acute ischemia or infarction Critical Care Time Critical Care Time: Yes Total Critical Care Time: 30 Critical Care Time: Critical Care Critical care time was exclusive of separately billable procedures and treating other patients and teaching time. Critical care was necessary to treat or prevent imminent or life-threatening deterioration. Critical care was time spent personally by me on the following activities: development of treatment plan with patient or surrogate, discussions with consultants, discussions with primary provider, evaluation of patient's response to treatment, examination of patient, obtaining history from patient or surrogate, ordering and performing treatments and interventions, ordering and review of laboratory studies, ordering and review of radiographic studies, pulse oximetry, re-evaluation of patient's condition and review of old charts. Disposition Clinical Impression: Polysubstance overdose, Unresponsive Disposition: ADMITTED IP TO THIS [facility] Condition: Serious Is patient prescribed a controlled substance at d/c from ED?: No
[2018-11-14 00:45] LABS: Basophils % (A) 0 %; Eosinophils # (A) 0.1 k/uL (0-0.7); Eosinophils % (A) 0 %; HCT 42.4 % (39.0-53.0); Lymphocytes # (A) 1.7 k/uL (1.0-4.8); Lymphocytes % (A) 9 %; MCH 29.8 pg (25.0-35.0); MCHC 32.9 g/dL (31.0-37.0); MCV 90.4 fL (80.0-100.0); Mean Platelet Volume 6.6; Monocytes # (A) 0.9 k/uL (0-1.0); Monocytes % (A) 5 %; Neutrophils # (A) 15.9 k/uL (1.3-7.7); Neutrophils % (A) 85 %; Platelet Count 281 k/uL (150-450); RBC 4.69 m/uL (4.30-5.90); RDW 12.9 % (11.5-15.5); WBC 18.7 k/uL (3.8-10.6)
[2018-11-14 00:49] LABS: INR 1.1 (<1.2); Prothrombin Time 11.2 sec (9.0-12.0)
[2018-11-14 00:54] LABS: Amphetamine Screen,Urine Not Detected (NotDetected); Barbiturate Screen,Urine Not Detected (NotDetected); Benzodiazepines Screen,Urine Detected (NotDetected); Cocaine Screen,Urine Not Detected (NotDetected); Methadone Screen, Urine Not Detected (NotDetected); Opiate Screen,Urine Not Detected (NotDetected); Oxycodone Screen, Urine Not Detected (NotDetected); Phencyclidine Screen,Urine Not Detected (NotDetected); Tricyclic Antidepressant,Urine Not Detected (NotDetected); Urn Cannabinoid Scrn Not Detected (NotDetected)
[2018-11-14 01:01] LABS: ALT 59 U/L (21-72); AST 35 U/L (17-59); Acetaminophen <10.0 ug/mL; Albumin 4.4 g/dL (3.5-5.0); Alcohol <10 mg/dL; Alkaline Phosphatase 80 U/L (38-126); Anion Gap 9 mmol/L; Blood Urea Nitrogen 7 mg/dL (9-20); Calcium 9.9 mg/dL (8.4-10.2); Carbon Dioxide 26 mmol/L (22-30); Chloride 102 mmol/L (98-107); Glucose 155 mg/dL (74-99); Magnesium 1.6 mg/dL (1.6-2.3); Potassium 3.8 mmol/L (3.5-5.1); Salicylate <1.0 mg/dL; Sodium 137 mmol/L (137-145); Total Bilirubin 0.5 mg/dL (0.2-1.3)
[2018-11-14] MEDS ORDERED: PROPOFOL 1,000 MG in EMPTY BAG 1 BAG IV ONE (01:32)
[2018-11-14] MEDS ORDERED: ETOMIDATE 2 MG/ML 10 ML VIAL IVP STA (01:45)
[2018-11-14] MEDS ORDERED: ROCURONIUM BROMIDE 10 MG/ML 10 ML VIAL IV STA ×2 (02:01→02:05)
--- NOTE | 2018-11-14 02:13 | XR ---
EXAM: XR Chest, 1 View CLINICAL HISTORY: ITS.REASON XR Reason: intubation TECHNIQUE: Frontal view of the chest. COMPARISON: No relevant prior studies available. FINDINGS: Lungs: Unremarkable. No consolidation. Pleural space: Unremarkable. No pneumothorax. Heart: No pneumomediastinum. Mediastinum: Unremarkable. Bones/joints: No definite fracture. Tubes, lines and devices: Endotracheal tube 9 cm above the samanta. NG tube in the distal esophagus. IMPRESSION: Endotracheal tube 9 cm above the samanta. NG tube in the distal esophagus. <MYCVCSECTION> [employer] 11/14/18 02:25 Verify Receipt with Nurse Verified receipt with TRUPTI Alonzo on 11/14 02:25 (-04:00)
[2018-11-14] MEDS: SODIUM CHLORIDE 0.9% 1,000 ML IV SCH ×3 (02:23→15:45)
[2018-11-14] MEDS ORDERED: MIDAZOLAM 1 MG/ML 5 ML VIAL IV STA (02:31)
[2018-11-14 02:37] LABS: ABG Base Excess 0.1 mmol/L; ABG HCO3 26 mmol/L (21-25); ABG PCO2 50 mmHg (35-45); ABG PH 7.33 (7.35-7.45); ABG PO2 >400 mmHg (83-108); ABG TCO2 28 mmol/L (19-24)
--- NOTE | 2018-11-14 02:59 | CT ---
EXAM: CT Head Without Intravenous Contrast CLINICAL HISTORY: ITS.REASON CT Reason: altered TECHNIQUE: Axial computed tomography images of the head/brain without intravenous contrast. CTDI is 49 mGy and DLP is [address] exam was performed using one or more of the following dose reduction techniques: automated exposure control, adjustment of the mA and/or kV according to patient size, and/or use of iterative reconstruction technique. COMPARISON: No relevant prior studies available. FINDINGS: Brain: No hemorrhage. No edema. Ventricles: Unremarkable. No ventriculomegaly. Bones/joints: No acute fracture. Soft tissues: Unremarkable. Sinuses: No fluid levels. Mastoid air cells: Unremarkable as visualized. No mastoid effusion. IMPRESSION: No acute intracranial findings
[2018-11-14 03:17] LABS: Glucose,Whole Blood 140 mg/dL (75-99)
[2018-11-14] MEDS ORDERED: NALOXONE 0.4 MG/ML 1 ML VIAL IV PRN (03:43)
[2018-11-14] MEDS ORDERED: LORazepam 2 MG/ML INJ IV PRN (03:47)
--- NOTE | 2018-11-14 04:31 | XR ---
EXAM: XR Chest, 1 View CLINICAL HISTORY: ITS.REASON XR Reason: Tube placement TECHNIQUE: Frontal view of the chest. COMPARISON: No relevant prior studies available. FINDINGS: Lungs: Unremarkable. No consolidation. Pleural space: Unremarkable. No pneumothorax. Heart: No pneumomediastinum. Mediastinum: Unremarkable. Bones/joints: No definite fracture. Tubes, lines and devices: NG tube terminates in the stomach. Endotracheal tube, if present, terminates 10 cm above the samanta. IMPRESSION: NG tube terminates in the stomach.
[2018-11-14 04:34] VITALS: BMI 27.6
[2018-11-14 04:44] LABS: ABG Base Excess 5.2 mmol/L; ABG HCO3 29 mmol/L (21-25); ABG Oxygen Saturation 99.7 % (94-97); ABG PCO2 41 mmHg (35-45); ABG PH 7.46 (7.35-7.45); ABG PO2 179 mmHg (83-108); ABG TCO2 30 mmol/L (19-24)
[2018-11-14 05:20] LABS: Basophils % (A) 0 %; Eosinophils # (A) 0.1 k/uL (0-0.7); Eosinophils % (A) 1 %; HCT 39.9 % (39.0-53.0); HGB 12.9 gm/dL (13.0-17.5); Lymphocytes # (A) 1.2 k/uL (1.0-4.8); Lymphocytes % (A) 10 %; MCH 29.4 pg (25.0-35.0); MCHC 32.3 g/dL (31.0-37.0); Mean Platelet Volume 6.9; Monocytes # (A) 0.5 k/uL (0-1.0); Monocytes % (A) 4 %; Neutrophils % (A) 85 %; Platelet Count 248 k/uL (150-450); RBC 4.39 m/uL (4.30-5.90); WBC 11.8 k/uL (3.8-10.6)
[2018-11-14 05:36] LABS: Anion Gap 6 mmol/L; Blood Urea Nitrogen 7 mg/dL (9-20); Calcium 9.3 mg/dL (8.4-10.2); Carbon Dioxide 27 mmol/L (22-30); Chloride 104 mmol/L (98-107); Glucose 126 mg/dL (74-99); Magnesium 1.6 mg/dL (1.6-2.3); Phosphorus 2.4 mg/dL (2.5-4.5); Potassium 5.1 mmol/L (3.5-5.1); Sodium 137 mmol/L (137-145)
[2018-11-14] MEDS: PROPOFOL 1,000 MG in EMPTY BAG 1 BAG IV SCH ×2 (05:51→08:12)
--- NOTE | 2018-11-14 05:51 | XR ---
EXAMINATION TYPE: XR chest 1V portable DATE OF EXAM: 11/14/2018 HISTORY: Tube placement. REFERENCE: Previous study dated 11/14/2018. FINDINGS: The patient remains intubated. ET tube is unchanged in appearance. The patient is NG tube i s been advanced and is tip is now in the stomach. The lungs remain clear. Pleural space are clear. Th e heart is not enlarged. IMPRESSION: NO ACTIVE INTRATHORACIC DISEASE.
[2018-11-14] MEDS ORDERED: Magnesium Replacement Protocol 1 EACH MISC MISCELLANE PRN (05:52)
[2018-11-14] MEDS: MAGNESIUM SULFATE-D5W PMX 1 GM in DEXTROSE/WATER 1 100ML.BAG IVPB SCH ×2 (05:57→07:05)
[2018-11-14] MEDS: HEPARIN SODIUM,PORCINE 5,000 UNIT/ML 1 ML VIAL SQ SCH ×3 (08:13→23:28)
[2018-11-14] MEDS ORDERED: PANTOPRAZOLE 40 MG/10 ML VIAL IV SCH (09:00)
[2018-11-14] MEDS ORDERED: CHLORHEXIDINE GLUCONATE 15 ML CUP MUCOUS MEM SCH (09:00)
--- NOTE | 2018-11-14 11:51 | P.CNPUL ---
History of Present Illness Consult date: 11/14/18 Chief complaint: Drug overdose, altered mental status History of present illness: This is a 48-year-old male patient known history of anxiety, depression, bipolar disorder and possible PTSD. The patient was having difficulties with sleep. He was having issues with insomnia for quite some time and his symptoms were gradually getting worse. On the day of the hospital admission, the patient took a total of 10 tablets of baclofen, 10 mg, a total of 4 tablets of Prozac 40 mg, and a total of 4 tablets of hydroxyzine, 25 mg. This has been reported by his significant other. The patient was found to be altered and confused and he was noted to have dilated pupils, twitching, sweating and it was decided to bring the patient to the hospital. No reported head trauma. No fever. No chills. No aspiration. No seizure activity. Upon arrival the patient was moaning and he was altered in terms of his mentation. Poison control was contacted by emergency department and based on that advice the patient was intubated and placed on mechanical ventilator after being sedated with propofol. The patient's EKG is within normal limits. Electrodes were all monitored and they're within normal limits. The patient was moved to the intensive care unit after confirming a CAT scan of the brain that was negative. According to the significant other, the patient had no suicidal intentions. This morning the patient was hemodynamically stable. He was still on 50 g per KG per minute of propofol. The patient was responding to painful stimulation. Pupils were equal and symmetric to light. No significant activity has been noted. He remained hemodynamically stable. Chest x-ray was clear. The patient was actually taking and ventilating well. Blood work was showing no significant abnormalities. The pH was at 7.46 with a pCO2 of 41 and pO2 of 179 and this was done on a 50% FiO2. The white cell count was not elevated. The urine drug s creen was positive for benzodiazepine otherwise negative. The rest of the electrodes are all within normal limits. I took the patient off sedation. He was able to follow commands. He became quite anxious. He did not receive a spontaneous breathing trial. He was extubated to nasal cannula. He did well and he was following commands and answering questions appropriately. is at the bedside. Review of Systems ROS unobtainable: due to mental status Past Medical History Past Medical History: Hypertension Additional Past Medical History / Comment(s): Alcohol abuse, chronic anxiety, d epression, possible bipolar disorder, possible PTSD History of Any Multi-Drug Resistant Organisms: None Reported Past Surgical History: Orthopedic Surgery Additional Past Surgical History / Comment(s): Herniated discs in back Past Anesthesia/Blood Transfusion Reactions: No Reported Reaction Past Psychological History: Anxiety, Depression, PTSD Smoking Status: Current every day smoker Past Alcohol Use History: Daily, Heavy Past Drug Use History: None Reported - Past Family History Father Family Medical History: AFIB Additional Family Medical History / Comment(s): "His dad has to take medication for his heart" Mother Additional Family Medical History / Comment(s): "Grandmother of esophageal cancer and aunt of brain cancer." Medications and Allergies Home Medications Medication Instructions Recorded Confirmed Type Cholecalciferol [Vitamin D3] 1,000 unit PO DAILY 08/04/17 11/14/18 History FLUoxetine HCL [PROzac] 20 - 40 mg PO DAILY 08/04/17 11/14/18 History Ascorbic Acid [Vitamin C] 500 mg PO DAILY 11/13/17 11/14/18 History Hydroxyzine Unknown Dose 1 tab PO DAILY PRN 11/14/18 11/14/18 History Allergies Allergy/AdvReac Type Severity Reaction Status Date / Time No Known Allergies Allergy Verified 11/14/18 08:19 Physical Exam Vitals: Vital Signs Temp Pulse Resp BP Pulse Ox 11/14/18 11:01 60 12 108/72 99 11/14/18 10:30 63 18 108/67 99 11/14/18 10:00 65 11 L 127/83 100 11/14/18 09:30 86 16 119/86 98 11/14/18 09:00 58 L 17 124/86 100 11/14/18 08:30 61 24 100/64 100 11/14/18 08:00 97.5 F L 59 L 24 103/65 100 11/14/18 07:30 60 24 104/68 100 11/14/18 07:00 59 L 24 99/65 100 11/14/18 06:30 59 L 24 101/70 100 11/14/18 06:00 59 L 24 99/64 100 11/14/18 05:30 62 25 H 99/66 100 11/14/18 05:00 61 24 106/71 100 11/14/18 04:30 64 24 131/96 100 11/14/18 04:00 97.5 F L 76 24 133/98 99 11/14/18 03:30 71 24 134/96 99 11/14/18 03:02 97.4 F L 69 24 98 11/14/18 02:00 101 H 20 136/77 100 11/14/18 01:50 24 100 11/14/18 01:30 84 10 L 97 11/14/18 01:29 78 17 133/84 98 11/14/18 01:10 71 12 105/87 11/14/18 01:00 69 12 146/99 11/14/18 00:50 68 17 146/99 11/14/18 00:40 72 19 138/87 11/14/18 00:30 82 16 140/88 11/14/18 00:21 71 17 159/101 11/14/18 00:02 97.4 F L 75 22 159/101 97 Intake and Output 11/13/18 11/14/18 11/14/18 22:59 06:59 14:59 Intake Total 500 695.419 Output Total 350 600 Balance 150 95.419 Intake: IV 500 575 Magnesium Sulfate-D5w Pmx 200 1 gm In Dextrose/Water 1 100ml.bag @ 100 mls/hr IVPB Q1H [facility] Rx#: [id number] Sodium Chloride 0.9% 1, 500 375 000 ml @ 125 mls/hr IV . Q8H [facility] Rx#:[id number] Intake, IV Titration 120.419 Amount Propofol 1,000 mg In 120.419 Empty Bag 1 bag @ Titrate IV .Q0M [facility] Rx#: [id number] Output: Urine 350 600 Other: Voiding Method Indwelling Catheter Indwelling Catheter Weight 93.894 kg The patient appeared well nourished and normally developed. Vital signs as documented. Head exam is unremarkable. No scleral icterus or corneal arcus noted. Neck is without jugular venous distension, thyromegaly, or carotid bruits. Carotid upstrokes are brisk bilaterally. Lungs are clear to auscultation and percussion. Cardiac exam reveals the PMI to be normally sized and situated. Rhythm is regular. First and second heart sounds normal. No murmurs, rubs or gallops. Abdominal exam reveals normal bowel sounds, no masses, no organomegaly and no aortic enlargement. Extremities are nonedematous and both femoral and pedal pulses are normal. Neurologically the patient is slow in answering questions however is awake and opens eyes and follows simple commands. Pupils are equal and reactive to light. No facial asymmetry. No seizure activity. No neck stiffness. No clonus. No Babinski.Examination of the skin revealed no evidence of significant rashes, suspicious appearing nevi or other concerning lesions. Results - Laboratory Findings CBC and BMP: 11/14/18 04:33 11/14/18 04:33 ABG ABG pH 7.46 (7.35-7.45) H 11/14/18 04:43 ABG pCO2 41 mmHg (35-45) 11/14/18 04:43 ABG pO2 179 mmHg (83-108) H 11/14/18 04:43 ABG O2 Saturation 99.7 % (94-97) H 11/14/18 04:43 PT/INR, D-dimer PT 11.2 sec (9.0-12.0) 11/14/18 00:30 INR 1.1 (<1.2) 11/14/18 00:30 Abnormal lab findings: Abnormal Labs 11/14/18 11/14/18 11/14/18 00:19 00:30 00:30 WBC 18.7 H Hgb Neutrophils # 15.9 H ABG pH ABG pCO2 ABG pO2 ABG HCO3 ABG Total CO2 ABG O2 Saturation BUN 7 L Glucose 155 H POC Glucose (mg/dL) 166 H Phosphorus U Benzodiazepines Scrn 11/14/18 11/14/18 11/14/18 00:30 02:33 03:03 WBC Hgb Neutrophils # ABG pH 7.33 L ABG pCO2 50 H ABG pO2 >400 H ABG HCO3 26 H ABG Total CO2 28 H ABG O2 Saturation 100.0 H BUN Glucose POC Glucose (mg/dL) 140 H Phosphorus U Benzodiazepines Scrn Detected H 11/14/18 11/14/18 11/14/18 04:33 04:33 04:43 WBC 11.8 H Hgb 12.9 L Neutrophils # 10.0 H ABG pH 7.46 H ABG pCO2 ABG pO2 179 H ABG HCO3 29 H ABG Total CO2 30 H ABG O2 Saturation 99.7 H BUN 7 L Glucose 126 H POC Glucose (mg/dL) Phosphorus 2.4 L U Benzodiazepines Scrn - Diagnostic Findings Chest x-ray: image reviewed Assessment and Plan Plan: 1 drug overdose without indication for any suicidal thoughts or intentions. The patient took excessive amount of medication including baclofen and hydroxyzine and Prozac to get himself sleep as the patient suffers from chronic insomnia. 2 altered mental status, recovered 3 acute hypoxic respiratory failure requiring intubation mechanical ventilation and the patient was extubated blood any major difficulties 4 history of alcoholism 5 chronic anxiety 6 depression 7 PTSD 8 suspected bipolar disorder Plan Will monitor this patient's mental status. I see very closely. Avoid any form of sedation for now. We'll check his swallow postextubation will offer diet if needed. The is at the bedside. We will consult psychiatry. No indication for any suicidal intention and the patient was trying to get himself some decent sleep and for that reason he also utilizes medication. In any rate, he will need psychiatric evaluation of his chronic insomnia secondary to his chronic psychiatric disorder which includes a combination of anxiety and depression and possible bipolar disorder. He'll be kept in the intensive care unit for now. DVT and GI prophylaxis. We'll continue to follow.
[2018-11-14 12:31] LABS: Glucose,Whole Blood 86 mg/dL (75-99)
--- NOTE | 2018-11-14 13:31 | P.CN ---
Psychiatric Consult - . Consult date: 11/14/18 Consult:: 11/14/18 13:21 IDENTIFYING DATA: A 48-year-old male patient HPI: Patient admitted to the [facility] status post overdose. Per chart history he presented after overdosing on 10 baclofen, 120 mg of Prozac and four hydroxyzine. Patient's significant other who is present noticed on symptoms that he had after taking the medication and called 911. Patient's significant other states he did not take them all at one time, but it sounds like at different periods, he hadn't been sleeping well. Per chart history he was presenting with dilated eyes, twitching and sweating. Per chart history he became less responsive and eventually needed to be intubated. Per history he is asking some simple questions today, did not recognize his significant other before but does today. The patient himself is mostly nonverbal so much of the history is taken from his significant other. His significant other states that a recent stressor has been dealing with family issues regarding his children. PAST PSYCHIATRIC HISTORY: His significant other states he has a history of depression and anxiety. She relays at the end of the session that there has been concern of the diagnosis of bipolar disorder in the past. Historically he has been on Prozac, it sounds not fully compliant with taking the medication and sometimes takes more than prescribed. He hasn't had a few inpatient psychiatric admissions. He has not had any actual suicide attempts but has threatened under the influence before. PMH: Obstructive sleep apnea, herniated disks in his back per chart history, shoulder issues, per chart history hypertension ALLERGIES: No known ALLERGIES MEDICATIONS: Heparin, Ativan when necessary, Narcan when necessary, Protonix CHEMICAL DEPENDENCY HISTORY: No alcohol since April per his significant other. Past history of alcohol use. FAMILY PSYCHIATRIC HISTORY: None known at this time. FAMILY CHEMICAL DEPENDENCY HISTORY: None known at this time. SOCIAL HISTORY: This with his significant other currently. He related that he has 3 kids. Disability through the , 90% MENTAL STATUS EXAM: He is alert but mostly nonverbal. He does verbalize minimally. He is oriented to place and city. He states that the year is 2011. He does not know the month. He does not show any agitation. He denies any current thoughts of harm to himself. He does not respond regarding his mood. IMPRESSIONS: Encephalopathy, likely related to multiple drug overdose including baclofen. In review of some literature, baclofen overdose can mimic anoxic encephalopathy PLAN: Psychiatry can continue to follow-up with the patient and monitor his status. I would recommend inpatient psychiatric hospitalization after further medical stabilization to monitor his status and for appropriate treatment of any mood symptoms. Would place one-to-one monitoring.
[2018-11-14 18:31] LABS: Glucose,Whole Blood 82 mg/dL (75-99)
[2018-11-14] MEDS: PANTOPRAZOLE 40 MG/10 ML VIAL IV SCH (19:59)
[2018-11-15 00:46] LABS: Glucose,Whole Blood 83 mg/dL (75-99)
--- NOTE | 2018-11-15 00:57 | P.HPIM ---
History of Present Illness H&P Date: 11/14/18 Mr. Villarreal is a Titi is a 48-year-old male past medical history of alcohol abuse ,Anxiety, depression, bipolar disorder, PTSD brought into the hospital for evaluation of possible overdose of his medication. The history was given by his as the patient was confused at that time when he was brought to the ED. She states that he probably has taken 8-10 pills of 10 mg baclofen over 12 hours and also for pills of 120 mg of Prozac and 4 pills of hydroxyzine 25 mg. She mentions that he was trying to take all these medications to have a good night sleep. She states that he was not having any suicidal ideation. When she got back from work the patient mentioned to her that he was okay but later on she noticed that h his eyes were dilated and he was twitching and sweating so decide d to call EMS. In the emergency department toxicology was consulted. Patient was found to be confused and he had dilated pupils, he was twitching and sweating, he was not able to follow commands so he was intubated for protection of his airway. Overnight the patient was on mechanical ventilator and he was sedated with propofol. Earlier this morning patient was trying to wake up after his sedation was stopped. He was successfully extubated without spontaneous breathing trial. Now the patient has been off of mechanical ventilation and is on a nasal cannula saturating in the low 90s. Patient still appears to be confused. He responds to few questions but drifts back to closing his eyes and sleeping. He is still in a confused state. Review of systems could not be done as the patient is still not completely awake due to sedation. Review of Systems ROS unobtainable: due to endotracheal tube, due to mental status (confused) Past Medical History Past Medical History: Hypertension Additional Past Medical History / Comment(s): Alcohol abuse, chronic anxiety, depression, possible bipolar disorder, possible PTSD History of Any Multi-Drug Resistant Organisms: None Reported Past Surgical History: Orthopedic Surgery Additional Past Surgical History / Comment(s): Herniated discs in back Past Anesthesia/Blood Transfusion Reactions: No Reported Reaction Past Psychological History: Anxiety, Depression, PTSD Smoking Status: Current every day smoker Past Alcohol Use History: Daily, Heavy Past Drug Use History: None Reported - Past Family History Father Family Medical History: AFIB Additional Family Medical History / Comment(s): "His dad has to take medication for his heart" Mother Additional Family Medical History / Comment(s): "Grandmother of esophageal cancer and aunt of brain cancer." Medications and Allergies Home Medications Medication Instructions Recorded Confirmed Type Cholecalciferol [Vitamin D3] 1,000 unit PO DAILY 08/04/17 11/14/18 History FLUoxetine HCL [PROzac] 20 - 40 mg PO DAILY 08/04/17 11/14/18 History Ascorbic Acid [Vitamin C] 500 mg PO DAILY 11/13/17 11/14/18 History Hydroxyzine Unknown Dose 1 tab PO DAILY PRN 11/14/18 11/14/18 History Allergies Allergy/AdvReac Type Severity Reaction Status Date / Time No Known Allergies Allergy Verified 11/14/18 08:19 Physical Exam Vitals: Vital Signs Temp Pulse Resp BP Pulse Ox 11/14/18 13:00 70 21 112/79 99 11/14/18 12:30 66 18 108/62 98 11/14/18 12:00 96.9 F L 62 11 L 115/74 99 11/14/18 11:30 65 11 L 108/72 99 11/14/18 11:01 60 12 108/72 99 11/14/18 10:30 63 18 108/67 99 11/14/18 10:00 65 11 L 127/83 100 11/14/18 09:30 86 16 119/86 98 11/14/18 09:00 58 L 17 124/86 100 11/14/18 08:30 61 24 100/64 100 11/14/18 08:00 97.5 F L 59 L 24 103/65 100 11/14/18 07:30 60 24 104/68 100 11/14/18 07:00 59 L 24 99/65 100 11/14/18 06:30 59 L 24 101/70 100 11/14/18 06:00 59 L 24 99/64 100 11/14/18 05:30 62 25 H 99/66 100 11/14/18 05:00 61 24 106/71 100 11/14/18 04:30 64 24 131/96 100 11/14/18 04:00 97.5 F L 76 24 133/98 99 11/14/18 03:30 71 24 134/96 99 11/14/18 03:02 97.4 F L 69 24 98 11/14/18 02:00 101 H 20 136/77 100 11/14/18 01:50 24 100 11/14/18 01:30 84 10 L 97 11/14/18 01:29 78 17 133/84 98 11/14/18 01:10 71 12 105/87 11/14/18 01:00 69 12 146/99 11/14/18 00:50 68 17 146/99 11/14/18 00:40 72 19 138/87 11/14/18 00:30 82 16 140/88 11/14/18 00:21 71 17 159/101 11/14/18 00:02 97.4 F L 75 22 159/101 97 Intake and Output 11/13/18 11/14/18 11/14/18 22:59 06:59 14:59 Intake Total 500 945.419 Output Total 350 925 Balance 150 20.419 Intake: IV 500 825 Magnesium Sulfate-D5w Pmx 200 1 gm In Dextrose/Water 1 100ml.bag @ 100 mls/hr IVPB Q1H [facility] Rx#: [id number] Sodium Chloride 0.9% 1, 500 625 000 ml @ 125 mls/hr IV . Q8H [facility] Rx#:[id number] Intake, IV Titration 120.419 Amount Propofol 1,000 mg In 120.419 Empty Bag 1 bag @ Titrate IV .Q0M [facility] Rx#: [id number] Output: Urine 350 925 Other: Voiding Method Indwelling Catheter Indwelling Catheter Weight 93.894 kg GEN. APPEARANCE: alert, in no apparent distress HEAD EXAM: atraumatic, normocephalic, normal inspection EYE EXAM: normal appearance, PERRL, EOMI. Absent: scleral icterus, conjunctival injection, periorbital swelling ENT EXAM: normal exam, mucous membranes moist NECK EXAM: normal inspection. Absent: tenderness, meningismus, full ROM, lymphadenopathy RESPIRATORY EXAM: normal lung sounds bilaterally. Absent: respiratory d istress, wheezes, rales, rhonchi, stridor CARDIOVASCULAR EXAM: regular rate, normal rhythm, normal heart sounds. Absent: systolic murmur, diastolic murmur, rubs, gallop, clicks GI/ABDOMINAL EXAM: soft, normal bowel sounds. Absent: distended, tenderness, guarding, rebound, rigid EXTREMITIES EXAM: normal inspection, full ROM, normal capillary refill. Absent: tenderness, pedal edema, joint swelling, calf tenderness NEUROLOGICAL EXAM: confused SKIN EXAM: warm, dry, intact, normal color. Absent: rash Results CBC & Chem 7: 11/14/18 04:33 11/14/18 04:33 Labs: Abnormal Lab Results - Last 24 Hours (Table) 11/14/18 11/14/18 11/14/18 Range/Units 00:19 00:30 00:30 WBC 18.7 H (3.8-10.6) k/uL Hgb (13.0-17.5) gm/dL Neutrophils # 15.9 H (1.3-7.7) k/uL ABG pH (7.35-7.45) ABG pCO2 (35-45) mmHg ABG pO2 (83-108) mmHg ABG HCO3 (21-25) mmol/L ABG Total CO2 (19-24) mmol/L ABG O2 Saturation (94-97) % BUN 7 L (9-20) mg/dL Glucose 155 H (74-99) mg/dL POC Glucose (mg/dL) 166 H (75-99) mg/dL Phosphorus (2.5-4.5) mg/dL U Benzodiazepines Scrn (NotDetected) 11/14/18 11/14/18 11/14/18 Range/Units 00:30 02:33 03:03 WBC (3.8-10.6) k/uL Hgb (13.0-17.5) gm/dL Neutrophils # (1.3-7.7) k/uL ABG pH 7.33 L (7.35-7.45) ABG pCO2 50 H (35-45) mmHg ABG pO2 >400 H (83-108) mmHg ABG HCO3 26 H (21-25) mmol/L ABG Total CO2 28 H (19-24) mmol/L ABG O2 Saturation 100.0 H (94-97) % BUN (9-20) mg/dL Glucose (74-99) mg/dL POC Glucose (mg/dL) 140 H (75-99) mg/dL Phosphorus (2.5-4.5) mg/dL U Benzodiazepines Scrn Detected H (NotDetected) 11/14/18 11/14/18 11/14/18 Range/Units 04:33 04:33 04:43 WBC 11.8 H (3.8-10.6) k/uL Hgb 12.9 L (13.0-17.5) gm/dL Neutrophils # 10.0 H (1.3-7.7) k/uL ABG pH 7.46 H (7.35-7.45) ABG pCO2 (35-45) mmHg ABG pO2 179 H (83-108) mmHg ABG HCO3 29 H (21-25) mmol/L ABG Total CO2 30 H (19-24) mmol/L ABG O2 Saturation 99.7 H (94-97) % BUN 7 L (9-20) mg/dL Glucose 126 H (74-99) mg/dL POC Glucose (mg/dL) (75-99) mg/dL Phosphorus 2.4 L (2.5-4.5) mg/dL U Benzodiazepines Scrn (NotDetected) Microbiology - Last 24 Hours (Table) 11/14/18 04:15 Urine Culture - Preliminary Urine,Catheterized Thrombosis Risk Factor Assmnt - Choose All That Apply Each Factor Represents 1 point: Age 41-60 years, Medical pt on bed rest Thrombosis Risk Factor Assessment Total Risk Factor Score: 2 Thrombosis Risk Factor Assessment Level: Low Risk Assessment and Plan Assessment: ASSESSMENT Drug overdose Encephalopathy secondary to #1 Acute hypoxic respiratory failure -requiring mechanical ventilation Depression with anxiety Bipolar disorder PTSD Chronic insomnia PLAN: Patient was intubated for protection of his airway, successfully extubated this morning. Patient still confused as he is not completely out of the sedation. Psychiatric services have been consulted. Patient did not have any suicidal ideation when he took the pills he was just trying to get decent sleep as he has chronic insomnia. Patient's at the bedside and her questions answered. Further recommendations to follow depending on the progress of the patient.
[2018-11-15] MEDS ORDERED: ACETAMINOPHEN TAB 325 MG TAB PO PRN (02:15)
[2018-11-15] MEDS: SODIUM CHLORIDE 0.9% 1,000 ML IV SCH ×2 (02:30→15:48)
[2018-11-15 04:55] LABS: Basophils % (A) 0 %; Eosinophils # (A) 0.1 k/uL (0-0.7); Eosinophils % (A) 1 %; HCT 40.4 % (39.0-53.0); HGB 13.1 gm/dL (13.0-17.5); Lymphocytes # (A) 1.3 k/uL (1.0-4.8); Lymphocytes % (A) 13 %; MCH 29.7 pg (25.0-35.0); MCHC 32.3 g/dL (31.0-37.0); MCV 91.9 fL (80.0-100.0); Monocytes # (A) 0.5 k/uL (0-1.0); Monocytes % (A) 5 %; Neutrophils # (A) 7.9 k/uL (1.3-7.7); Neutrophils % (A) 80 %; Platelet Count 280 k/uL (150-450); WBC 9.9 k/uL (3.8-10.6)
[2018-11-15 05:07] LABS: Anion Gap 5 mmol/L; Blood Urea Nitrogen 6 mg/dL (9-20); Calcium 8.9 mg/dL (8.4-10.2); Carbon Dioxide 28 mmol/L (22-30); Chloride 108 mmol/L (98-107); Glucose 92 mg/dL (74-99); Magnesium 1.7 mg/dL (1.6-2.3); Phosphorus 2.8 mg/dL (2.5-4.5); Potassium 4.2 mmol/L (3.5-5.1); Sodium 141 mmol/L (137-145)
[2018-11-15] MEDS: MAGNESIUM SULFATE-D5W PMX 1 GM in DEXTROSE/WATER 1 100ML.BAG IVPB SCH ×2 (06:37→09:27)
[2018-11-15 09:19] VITALS: TEMP 98.5
[2018-11-15] MEDS: PANTOPRAZOLE 40 MG/10 ML VIAL IV SCH (09:27)
[2018-11-15] MEDS: HEPARIN SODIUM,PORCINE 5,000 UNIT/ML 1 ML VIAL SQ SCH (09:27)
[2018-11-15 10:18] VITALS: BP 132/89; PULSE 84; RESP 15
--- NOTE | 2018-11-15 10:58 | P.PN ---
Subjective Progress Note Date: 11/15/18 Principal diagnosis: Multiple drugs overdose, intentional suicide. This is a 48-year-old male patient known history of anxiety, depression, bipolar disorder and possible PTSD. The patient was having difficulties with sleep. He was having issues with insomnia for quite some time and his symptoms were gradually getting worse. On the day of the hospital admission, the patient took a total of 10 tablets of baclofen, 10 mg, a total of 4 tablets of Prozac 40 mg, and a total of 4 tablets of hydroxyzine, 25 mg. This has been reported by his significant other. The patient was found to be altered and confused and he was noted to have dilated pupils, twitching, sweating and it was decided to bring the patient to the hospital. No reported head trauma. No fever. No chills. No aspiration. No seizure activity. Upon arrival the patient was moaning and he was altered in terms of his mentation. Poison control was contacted by emergency department and based on that advice the patient was intubated and placed on mechanical ventilator after being sedated with propofol. The patient's EKG is within normal limits. Electrodes were all monitored and they're within normal limits. The patient was moved to the intensive care unit after confirming a CAT scan of the brain that was negative. According to the significant other, the patient had no suicidal intentions.This morning the patient was hemodynamically stable. He was still on 50 g per KG per minute of propofol. The patient was responding to painful stimulation. Pupils were equal and symmetric to light. No significant activity has been noted. He remained hemodynamically stable. Chest x-ray was clear. The patient was actually taking and ventilating well. Blood work was showing no significant abnormalities. The pH was at 7.46 with a pCO2 of 41 and pO2 of 179 and this was done on a 50% FiO2. The white cell count was not elevated. The urine drug screen was positive for benzodiazepine otherwise negative. The rest of the electrodes are all within normal limits. I took the patient off sedation. He was able to follow commands. He became quite anxious. He did not receive a spontaneous breathing trial. He was extubated to nasal cannula. He did well and he was following commands and answering questions appropriately. is at the bedside. Patient was reevaluated today on 11/15/2018, remains in the ICU, he was extubated yesterday, asymptomatic. Patient is off mechanical ventilation, resting in bed, denies any specific complaints. Patient has a sitter at bedside, and he was briefly seen by psychiatry yesterday. Today the plan is to make sure that he is seen by psychiatry, and consider transferring the patient either to psychiatry or to a regular medical floor with suicidal precautions and have a sitter at bedside available. All his labs were reviewed he had a relatively normal CBC, normal basic metabolic profile. Objective - Vital Signs Vital signs: Vital Signs Temp 98.5 F 11/15/18 08:00 Pulse 84 11/15/18 10:00 Resp 15 11/15/18 10:00 BP 132/89 11/15/18 10:00 Pulse Ox 96 11/15/18 10:00 Intake & Output 11/14/18 11/15/18 11/15/18 18:59 06:59 18:59 Intake Total 7059.811 4113 825 Output Total 1315 420 Balance 434.387 9349 825 Weight 95.9 kg Intake: IV 1700 1500 725 Magnesium Sulfate-D5w Pmx 200 1 gm In Dextrose/Water 1 100ml.bag @ 100 mls/hr IVPB Q1H [facility] Rx#: [id number] Magnesium Sulfate-D5w Pmx 100 1 gm In Dextrose/Water 1 100ml.bag @ 100 mls/hr IVPB Q1H [facility] Rx#: [id number] Sodium Chloride 0.9% 1, 1500 1500 625 000 ml @ 125 mls/hr IV . Q8H [facility] Rx#:[id number] Intake, IV Titration 120.419 100 Amount Magnesium Sulfate-D5w Pmx 100 1 gm In Dextrose/Water 1 100ml.bag @ 100 mls/hr IVPB Q1H [facility] Rx#: [id number] Propofol 1,000 mg In 120.419 Empty Bag 1 bag @ Titrate IV .Q0M [facility] Rx#: [id number] Output: Urine 1315 420 Other: Voiding Method Indwelling Catheter Indwelling Catheter Urinal # Voids 0 0 - Exam Physical Exam: Revealed 48-year-old white male in no distress. Head: Atraumatic, normocephalic HEENT:[Neck is supple.] [No neck masses.] [No thyromegaly.] [No JVD.] PERRLA, EOMI, no icterus. Chest: [Clear throughout, no crackles, no rhonchi, no wheezes.] Cardiac Exam: [Normal S1 and S2, no S3 gallop, no murmur.] Abdomen: [Soft, nontender, no megaly, no rebound, no guarding, normal bowel sounds.] Extremities: [No clubbing, no edema, no cyanosis.] Neurological Exam: [No focal neurologic deficit.] Psychiatric: Normal mood affect and mental status examination. Skin: No rashes. Lymphatics: No lymphadenopathy. - Labs CBC & Chem 7: 11/15/18 03:58 11/15/18 03:58 Labs: Abnormal Lab Results - Last 24 Hours (Table) 11/15/18 11/15/18 Range/Units 03:58 03:58 Neutrophils # 7.9 H (1.3-7.7) k/uL Chloride 108 H (98-107) mmol/L BUN 6 L (9-20) mg/dL Microbiology - Last 24 Hours (Table) 11/14/18 04:15 Urine Culture - Preliminary Urine,Catheterized Assessment and Plan Assessment: Impression: 1 multiple drugs overdose 2 acute hypoxic respiratory failure on admission requiring intubation and mechanical ventilation 3 history of alcoholism 4 chronic anxiety syndrome 5 depression 6 posttraumatic shock disorder Recommendation: Continue to monitor mental status for now, awaiting psychiatry to reevaluate the patient today, possibly transfer to a regular medical floor with suicidal precautions and sitter at bedside, or consider testing the patient to psychiatry if accepted for transfer to the psych garcia. We will sign off and see the patient on when necessary basis. Time with Patient: Less than 30
--- NOTE | 2018-11-15 15:38 | P.DS ---
Providers Date of admission: 11/14/18 01:33 Attending physician: More Galindo Consults: 11/14/18 01:31 Consult Physician Stat Consulting Provider: Berlin Chand Consult Reason/Comments: intubated for overdose Do you want consulting provider notified?: Already Contacted 11/14/18 08:46 Consult Physician Routine Consulting Provider: Kenn Porter Consult Reason/Comments: unitentional OD, Hx. depression, anxiety, PTSD, possible bipolar. Do you want consulting provider notified?: Yes Primary care physician: [facility] Hospital Course: 48-year-old male past medical history of alcohol abuse ,Anxiety, depression, bipolar disorder, PTSD brought into the hospital for evaluation of possible overdose of his medication. The history was given by his as the patient was confused at that time when he was brought to the ED. She states that he probably has taken 8-10 pills of 10 mg baclofen over 12 hours and also for pills of 120 mg of Prozac and 4 pills of hydroxyzine 25 mg. She mentions that he was trying to take all these medications to have a good night sleep. She states that he was not having any suicidal ideation. When she got back from work the patient mentioned to her that he was okay but later on she noticed that h his eyes were dilated and he was twitching and sweating so decided to call EMS. In the emergency department toxicology was consulted. Patient was found to be confused and he had dilated pupils, he was twitching and sweating, he was not able to follow commands so he was intubated for protection of his airway. Overnight the patient was on mechanical ventilator and he was sedated with propofol. Earlier this morning patient was trying to wake up after his sedation was stopped. He was successfully extubated without spontaneous breathing trial. 11/15/2018 Patient is clinically doing well stable medically psychiatric valid the patient cleared for discharge patient will be discharged in stable medical condition to home. PHYSICAL EXAMINATION: GENERAL: The patient is alert and oriented x3, not in any acute distress. Well developed, well nourished. HEENT: Pupils are round and equally reacting to light. EOMI. No scleral icterus. No conjunctival pallor. Normocephalic, atraumatic. No pharyngeal erythema. No thyromegaly. CARDIOVASCULAR: S1 and S2 present. No murmurs, rubs, or gallops. PULMONARY: Chest is clear to auscultation, no wheezing or crackles. ABDOMEN: Soft, nontender, nondistended, normoactive bowel sounds. No palpable organomegaly. MUSCULOSKELETAL: No joint swelling or deformity. EXTREMITIES: No cyanosis, clubbing, or pedal edema. NEUROLOGICAL: Gross neurological examination did not reveal any focal deficits. SKIN: No rashes. The rest of the chronic medical problems , hospitalization course please refer t o history of present illness from Dr. Little from yesterday. Patient Condition at Discharge: Serious Plan - Discharge Summary New Discharge Prescriptions: No Action FLUoxetine HCL [PROzac] 20 - 40 mg PO DAILY Cholecalciferol [Vitamin D3] 1,000 unit PO DAILY Ascorbic Acid [Vitamin C] 500 mg PO DAILY Hydroxyzine Unknown Dose 1 tab PO DAILY PRN PRN Reason: Anxiety Discharge Medication List Cholecalciferol [Vitamin D3] 1,000 unit PO DAILY 08/04/17 [History] FLUoxetine HCL [PROzac] 20 - 40 mg PO DAILY 08/04/17 [History] Ascorbic Acid [Vitamin C] 500 mg PO DAILY 11/13/17 [History] Hydroxyzine Unknown Dose 1 tab PO DAILY PRN 11/14/18 [History] Follow up Appointment(s)/Referral(s): [facility],Clinic [Primary Care Provider] - 12/09/18 3:00 pm Discharge Disposition: HOME SELF-CARE
[2018-11-15] MEDS ORDERED: PANTOPRAZOLE 40 MG TABLET PO SCH (17:30)
== END 2018-11-15 16:10 | disposition home or self-care (01) | DRG 917 ==
LOC: EC 23:55 → 2SICU 11-14 01:33
PROVIDERS: ADMIT Hospitalist; ATTEND Hospitalist
DX: T42.8X1A Poisoning by antiparkinsonism drugs and other central muscle-tone depressants, accidental (unintentional), initial encounter (principal); G92 Toxic encephalopathy; J96.01 Acute respiratory failure with hypoxia; T43.591A Poisoning by other antipsychotics and neuroleptics, accidental (unintentional), initial encounter; T43.221A Poisoning by selective serotonin reuptake inhibitors, accidental (unintentional), initial encounter; Y92.009 Unspecified place in unspecified non-institutional (private) residence as the place of occurrence of the external cause; F17.200 Nicotine dependence, unspecified, uncomplicated; F43.10 Post-traumatic stress disorder, unspecified; F51.04 Psychophysiologic insomnia; I10 Essential (primary) hypertension; F32.9 Major depressive disorder, single episode, unspecified; F41.9 Anxiety disorder, unspecified; Z79.899 Other long term (current) drug therapy; Z80.0 Family history of malignant neoplasm of digestive organs; Z80.8 Family history of malignant neoplasm of other organs or systems; Z82.49 Family history of ischemic heart disease and other diseases of the circulatory system
CPT/HCPCS: 31500; 36415; 36600; 70450; 71045; 80048; 80053; 80306; 80320; 82805; 83520; 83605; 83735; 84100; 85025; 85610; 87086; 93005; 94002; 96361; 96374; 99291

== ENCOUNTER → 2019-02-01 | Outpatient (CLI) | payer OTHER ==
--- NOTE | 2019-02-01 12:26 | MR ---
EXAMINATION TYPE: MR cervical spine wo con DATE OF EXAM: 02/01/2019 COMPARISON: None HISTORY: cervicalgia, Pain from neck into left shoulder TECHNIQUE: Multiplanar, multisequence images of the cervical spine were acquired. C2-C3: No evidence for degenerative disc disease. No disc bulge/herniation or protrusion. No Canal stenosis. Foramina are patent bilaterally. C3-C4: No evidence for degenerative disc disease. No disc bulge/herniation or protrusion. No Canal stenosis. Foramina are patent bilaterally. C4-C5: No evidence for degenerative disc disease. No disc bulge/herniation or protrusion. No Canal stenosis. Foramina are patent bilaterally. C5-C6: There is an annular tear and broad-based central disc protrusion abutting the anterior margin the spinal cord. Bilateral uncovertebral joint hypertrophy contributes to mild to moderate bilateral foraminal encroachment. C6-C7: No evidence for degenerative disc disease. No disc bulge/herniation or protrusion. No Canal stenosis. Foramina are patent bilaterally. C7-T1: No evidence for degenerative disc disease. No disc bulge/herniation or protrusion. No Canal stenosis. Foramina are patent bilaterally. Cervical segments are intact. There is normal alignment. Cervical spinal cord is of normal signal. Craniovertebral junction relationships are within normal limits. IMPRESSION: 1. Broad-based central disc protrusion or small herniation C5-C6 abuts the anterior margin the spinal cord. Hypertrophic changes of the uncovertebral joints result in mild to moderate bilateral foramina l encroachment.
== END | disposition home or self-care (01) ==
LOC: RADMRIMAIN 11:51
PROVIDERS: ATTEND Physician Assistant Medical
DX: M50.222 Other cervical disc displacement at C5-C6 level (principal)
CPT/HCPCS: 72141

== ENCOUNTER 2019-06-15 11:20 | Emergency (ER) | payer OTHER ==
--- NOTE | 2019-06-15 11:57 | ED ---
General Adult HPI - General Chief complaint: Psychiatric Symptoms Stated complaint: Mental Health Time Seen by Provider: 06/15/19 11:28 Source: patient, police Mode of arrival: ambulatory Limitations: no limitations - History of Present Illness Initial comments: Dictation was produced using [employer] dictation software. please excuse any grammatical, word or spelling errors. Chief Complaint: 48-year-old male presents with depression and suicidal ideation. History of Present Illness: 8-year-old male he states she's been depressed because of his family situation. He is upset because his daughter wants nothing to do with him. He also is very apologetic for mistakes he is made affecting his relationship with his previous . Patient states that he wants to kill himself. He does not have any specific plan. Patient was on the phone with his sister who he expressed his situation 2. Sister called law enforcement and patient is brought to the emergency department. Patient has been binge drinking over the last several days. He does have a history of alcohol abuse. Patient denies any homicidal ideation. No visual or auditory hallucinations. He has no medical complaints at this time. The ROS documented in this emergency department record has been reviewed and confirmed by me. Those systems with pertinent positive or negative responses have been documented in the HPI. All other systems are other negative and/or noncontributory. PHYSICAL EXAM: General Impression: Alert and oriented x3, not in acute distress HEENT: Normocephalic atraumatic, extra-ocular movements intact, pupils equal and reactive to light bilaterally, mucous membranes moist. Cardiovascular: Heart regular rate and rhythm, S1&S2 audible, no murmurs, rubs or gallops Chest: Lungs clear to auscultation bilaterally, no rhonchi, no wheeze, no rales Abdomen: Bowel sounds present, abdomen soft, non-tender, non-distended, no organomegaly Musculoskeletal: Pulses present and equal in all extremities, no peripheral edema Motor: no focal deficits noted Neurological: CN II-XII grossly intact, no focal motor or sensory deficits noted Skin: Intact with no visualized rashes Psych: Normal affect and mood ED course: 48-year-old male presents with suicidal ideation. Signs upon arrival are within acceptable limits. Patient is calm and cooperative currently. Breath alcohol test is elevated. Laboratory evaluation obtained. CBC, metabolic panels obtained showing no acute processes. Magnesium is normal. Serum alcohol is 241. Pending clinical sobriety for EPS evaluation. Evaluated by EPS. Patient clear for discharge. Patient reevaluated at bedside stable medical condition. Patient was to follow up with primary care physician upon discharge. - Related Data Home Medications Medication Instructions Recorded Confirmed FLUoxetine HCL [PROzac] 40 mg PO DIRECTED 08/04/17 06/15/19 Allergies Allergy/AdvReac Type Severity Reaction Status Date / Time No Known Allergies Allergy Verified 06/15/19 12:50 Review of Systems ROS Statement: Those systems with pertinent positive or pertinent negative responses have been documented in the HPI. ROS Other: All systems not noted in ROS Statement are negative. Past Medical History Past Medical History: Hypertension Additional Past Medical History / Comment(s): Alcohol abuse, chronic anxiety, depression, possible bipolar disorder, possible PTSD History of Any Multi-Drug Resistant Organisms: None Reported Past Surgical History: Orthopedic Surgery Additional Past Surgical History / Comment(s): Herniated discs in back Past Anesthesia/Blood Transfusion Reactions: No Reported Reaction Past Psychological History: Anxiety, Depression, PTSD Smoking Status: Current every day smoker Past Alcohol Use History: Daily, Heavy Past Drug Use History: None Reported - Past Family History Father Family Medical History: AFIB Additional Family Medical History / Comment(s): "His dad has to take medication for his heart" Mother Additional Family Medical History / Comment(s): "Grandmother of esophageal cancer and aunt of brain cancer." General Exam Limitations: no limitations Course Vital Signs 06/15/19 06/15/19 11:21 17:00 Temperature 98.2 F Pulse Rate 62 71 Respiratory 16 20 Rate Blood Pressure 128/93 121/65 O2 Sat by Pulse 93 L 99 Oximetry Medical Decision Making - Lab Data Result diagrams: 06/15/19 12:26 06/15/19 12:26 Lab Results 06/15/19 06/15/19 06/15/19 Range/Units 11:35 12:26 12:26 WBC 10.3 (3.8-10.6) k/uL RBC 5.37 (4.30-5.90) m/uL Hgb 16.5 (13.0-17.5) gm/dL Hct 49.8 (39.0-53.0) % MCV 92.9 (80.0-100.0) fL MCH 30.7 (25.0-35.0) pg MCHC 33.1 (31.0-37.0) g/dL RDW 13.1 (11.5-15.5) % Plt Count 436 (150-450) k/uL Neutrophils % 64 % Lymphocytes % 28 % Monocytes % 5 % Eosinophils % 1 % Basophils % 0 % Neutrophils # 6.6 (1.3-7.7) k/uL Lymphocytes # 2.9 (1.0-4.8) k/uL Monocytes # 0.6 (0-1.0) k/uL Eosinophils # 0.1 (0-0.7) k/uL Basophils # 0.0 (0-0.2) k/uL Sodium 142 (137-145) mmol/L Potassium 4.9 (3.5-5.1) mmol/L Chloride 101 (98-107) mmol/L Carbon Dioxide 32 H (22-30) mmol/L Anion Gap 9 mmol/L BUN 5 L (9-20) mg/dL Creatinine 0.79 (0.66-1.25) mg/dL Est GFR (CKD-EPI)AfAm >90 (>60 ml/min/1.73 sqM) Est GFR (CKD-EPI)NonAf >90 (>60 ml/min/1.73 sqM) Glucose 89 (74-99) mg/dL Calcium 10.0 (8.4-10.2) mg/dL Magnesium 2.1 (1.6-2.3) mg/dL Urine Opiates Screen Not Detected (NotDetected) Ur Oxycodone Screen Not Detected (NotDetected) Urine Methadone Screen Not Detected (NotDetected) Ur Propoxyphene Screen Not Detected (NotDetected) Ur Barbiturates Screen Not Detected (NotDetected) U Tricyclic Antidepress Not Detected (NotDetected) Ur Phencyclidine Scrn Not Detected (NotDetected) Ur Amphetamines Screen Not Detected (NotDetected) U Methamphetamines Scrn Not Detected (NotDetected) U Benzodiazepines Scrn Detected H (NotDetected) Urine Cocaine Screen Not Detected (NotDetected) U Marijuana (THC) Screen Not Detected (NotDetected) Serum Alcohol 241 H* mg/dL Disposition Clinical Impression: Alcohol intoxication Disposition: HOME SELF-CARE Condition: Good Instructions (If sedation given, give patient instructions): Abuse of Alcohol (ED) Is patient prescribed a controlled substance at d/c from ED?: No Referrals: [facility],Clinic [Primary Care Provider] - 1-2 days Time of Disposition: 20:41
[2019-06-15] MEDS ORDERED: LORazepam 2 MG/ML INJ IM STA (12:48)
[2019-06-15 12:49] LABS: Basophils % (A) 0 %; Eosinophils # (A) 0.1 k/uL (0-0.7); Eosinophils % (A) 1 %; HCT 49.8 % (39.0-53.0); HGB 16.5 gm/dL (13.0-17.5); Lymphocytes # (A) 2.9 k/uL (1.0-4.8); Lymphocytes % (A) 28 %; MCH 30.7 pg (25.0-35.0); MCHC 33.1 g/dL (31.0-37.0); MCV 92.9 fL (80.0-100.0); Monocytes # (A) 0.6 k/uL (0-1.0); Monocytes % (A) 5 %; Neutrophils # (A) 6.6 k/uL (1.3-7.7); Neutrophils % (A) 64 %; Platelet Count 436 k/uL (150-450); RBC 5.37 m/uL (4.30-5.90); RDW 13.1 % (11.5-15.5); WBC 10.3 k/uL (3.8-10.6)
[2019-06-15 12:50] LABS: African American GFR (CKD) >90 (>60 ml/min/1.73 sqM); Anion Gap 9 mmol/L; Blood Urea Nitrogen 5 mg/dL (9-20); Carbon Dioxide 32 mmol/L (22-30); Chloride 101 mmol/L (98-107); Glucose 89 mg/dL (74-99); Magnesium 2.1 mg/dL (1.6-2.3); Potassium 4.9 mmol/L (3.5-5.1); Sodium 142 mmol/L (137-145)
[2019-06-15 12:57] LABS: Alcohol 241 mg/dL
[2019-06-15 13:33] LABS: Amphetamine Screen,Urine Not Detected (NotDetected); Barbiturate Screen,Urine Not Detected (NotDetected); Benzodiazepines Screen,Urine Detected (NotDetected); Cocaine Screen,Urine Not Detected (NotDetected); Methadone Screen, Urine Not Detected (NotDetected); Opiate Screen,Urine Not Detected (NotDetected); Oxycodone Screen, Urine Not Detected (NotDetected); Phencyclidine Screen,Urine Not Detected (NotDetected); Tricyclic Antidepressant,Urine Not Detected (NotDetected); Urn Cannabinoid Scrn Not Detected (NotDetected)
[2019-06-15 21:03] VITALS: BP 138/77; PULSE 66; RESP 18; TEMP 98.6
== END 2019-06-15 21:03 | disposition home or self-care (01) ==
LOC: EC 11:20
DX: F10.129 Alcohol abuse with intoxication, unspecified (principal); R45.851 Suicidal ideations; F32.9 Major depressive disorder, single episode, unspecified; F41.9 Anxiety disorder, unspecified; F17.200 Nicotine dependence, unspecified, uncomplicated; Z79.899 Other long term (current) drug therapy; Y90.8 Blood alcohol level of 240 mg/100 ml or more
CPT/HCPCS: 82075; 36415; 80048; 83735; 85025; 80306; 80320; 99285; 96372; J2060

== ENCOUNTER 2019-07-09 15:04 | Inpatient (IN) | payer OTHER ==
[2019-07-09] MEDS ORDERED: LORazepam 2 MG/ML INJ IM STA ×2 (16:31→20:18)
--- NOTE | 2019-07-09 18:33 | ED ---
Psych HPI - General Chief Complaint: Psychiatric Symptoms Stated Complaint: Mental Health Time Seen by Provider: 07/09/19 15:19 Source: patient, police, RN notes reviewed Mode of arrival: ambulatory - History of Present Illness Initial Comments: This is a 49-year-old male was brought in by family with concern for pressure in. Patient is very anxious he is saying that he was attending [employer] Go back to school he denies any thoughts of hurting himself. He does have a history of being on medication. He does admit to drinking alcohol today. He denies again suicidal thought or ideation. No cough no nausea no vomiting or other symptoms MD Complaint: feels depressed, other - Related Data Previous Rx's Medication Instructions Recorded Baclofen [Lioresal] 10 mg PO HS tab 07/12/19 FLUoxetine HCL [PROzac] 40 mg PO DAILY 28 Days cap 07/12/19 Folic Acid 1 mg PO DAILY 28 Days tab 07/12/19 Ibuprofen [Motrin] 400 mg PO Q6HR PRN tab 07/12/19 Naltrexone HCl [Revia] 50 mg PO DAILY 28 Days tab 07/12/19 Thiamine [Vitamin B-1] 100 mg PO DAILY 28 Days tab 07/12/19 Allergies Allergy/AdvReac Type Severity Reaction Status Date / Time No Known Allergies Allergy Verified 07/10/19 07:35 Review of Systems ROS Statement: Those systems with pertinent positive or pertinent negative responses have been documented in the HPI. ROS Other: All systems not noted in ROS Statement are negative. Past Medical History Past Medical History: Hypertension Additional Past Medical History / Comment(s): Alcohol abuse, chronic anxiety, depression, possible bipolar disorder, possible PTSD History of Any Multi-Drug Resistant Organisms: None Reported Past Surgical History: Orthopedic Surgery Additional Past Surgical History / Comment(s): Herniated discs in back Past Anesthesia/Blood Transfusion Reactions: No Reported Reaction Past Psychological History: Anxiety, Depression, PTSD Smoking Status: Current every day smoker Past Alcohol Use History: Daily, Heavy Past Drug Use History: None Reported - Past Family History Father Family Medical History: AFIB Additional Family Medical History / Comment(s): "His dad has to take medication for his heart" Mother Additional Family Medical History / Comment(s): "Grandmother of esophageal cancer and aunt of brain cancer." General Exam - General Exam Comments Initial Comments: This is a well-developed well-nourished awake alert oriented 3 male he does seem very anxious Limitations: no limitations General appearance: alert, anxious Head exam: Present: atraumatic, normocephalic, normal inspection Eye exam: Present: normal appearance, PERRL, EOMI. Absent: scleral icterus, conjunctival injection, periorbital swelling ENT exam: Present: normal exam, mucous membranes moist Neck exam: Present: normal inspection. Absent: tenderness, meningismus, lymphadenopathy Respiratory exam: Present: normal lung sounds bilaterally. Absent: respiratory distress, wheezes, rales, rhonchi, stridor Cardiovascular Exam: Present: regular rate, normal rhythm, normal heart sounds. Absent: systolic murmur, diastolic murmur, rubs, gallop, clicks GI/Abdominal exam: Present: soft, normal bowel sounds. Absent: distended, tenderness, guarding, rebound, rigid Extremities exam: Present: normal inspection, full ROM, normal capillary refill. Absent: tenderness, pedal edema, joint swelling, calf tenderness Back exam: Present: normal inspection Neurological exam: Present: alert, oriented X3, CN II-XII intact Psychiatric exam: Present: depressed, anxious. Absent: suicidal ideation Skin exam: Present: warm, dry, intact, normal color. Absent: rash Course Vital Signs 07/09/19 07/09/19 15:09 22:06 Temperature 98 F Pulse Rate 102 H 100 Respiratory 18 18 Rate Blood Pressure 142/94 122/78 O2 Sat by Pulse 96 99 Oximetry - Reevaluation(s) Reevaluation #1: 07/09/19 18:33 The patient is pending sobriety and EPS evaluation. The patient's care will be endorsed to Dr. Crocker at our shift change Medical Decision Making - Lab Data Result diagrams: 07/11/19 08:01 07/11/19 08:01 Disposition Clinical Impression: Depression, Alcohol intoxication Disposition: TRANSFER TO PSYCH HOSP/UNIT Condition: Stable
[2019-07-10] MEDS ORDERED: BACLOFEN 10 MG TAB PO PRN (01:08)
[2019-07-10] MEDS ORDERED: LORazepam 1 MG TAB PO STA (03:27)
[2019-07-10] MEDS: NICOTINE POLACRILEX 2 MG GUM BUCCAL PRN ×3 (03:31→11:40)
[2019-07-10] MEDS ORDERED: ZIPRASIDONE 20 MG VIAL IM PRN (05:27)
[2019-07-10] MEDS ORDERED: MAGNESIUM HYDROXIDE 2,400 MG/10 ML CUP PO PRN (05:27)
[2019-07-10] MEDS ORDERED: LORazepam 1 MG TAB PO PRN (05:27)
[2019-07-10] MEDS ORDERED: MAG HYDROX/AL HYDROX/SIMETH 30 ML CUP PO PRN (05:27)
[2019-07-10] MEDS ORDERED: ACETAMINOPHEN TAB 325 MG TAB PO PRN (05:27)
[2019-07-10] MEDS: FLUoxetine HCL 20 MG CAP PO SCH (08:31)
[2019-07-10] MEDS ORDERED: NICOTINE LOZENGE PO PRN (13:44)
[2019-07-10] MEDS: LORazepam 1 MG TAB PO PRN ×2 (13:57→20:58)
[2019-07-10] MEDS: NICOTINE 4 MG PO PRN ×4 (14:23→20:58)
--- NOTE | 2019-07-10 16:03 | P.HP ---
Psychiatric H&P - . History & Physical: Allergies Allergy/AdvReac Type Severity Reaction Status Date / Time No Known Allergies Allergy Verified 07/10/19 07:35 Vital Signs Temp 97.8 F 07/10/19 07:24 Pulse 114 H 07/10/19 13:58 Resp 20 07/10/19 13:58 BP 129/95 07/10/19 13:58 Pulse Ox 99 07/10/19 07:24 Intake & Output 07/09/19 07/10/19 07/10/19 18:59 06:59 18:59 Weight 90.718 kg 07/10/19 15:51 IDENTIFYING DATA: This patient is a 49-year-old male who was admitted to the mental health unit through the emergency room with concerns he was having suicidal ideation. HPI: The patient presented with a petition completed by a piece officer stating "subject made statements that he was going to kill himself and commit suicide." The patient states that he agrees he has a problem without the smith but he was not suicidal and he states he never made any statements that he was suicidal. He challenges us to obtain any footage from cameras that police officers may have used during that interaction. 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 He feels that the Prozac is effective. He indicates that he has had several stressors to deal with lately. He is currently in college attempting to complete his bachelor's degree he is approaching . He states that he is just moved from [place] to a new home in [place] and he has a regular commute to [place] to attend classes. Appetite is been decreased energy levels been stable. He reports no tearfulness or crying spells. He indicates he does not feel hopeless. He has been consuming alcohol excessively again. He indicates he is struggled with alcohol use problems ever since he was in the [employer]. During this past week he consumes 6 beers on Thursday 18 on 12 on Thursday. Prior to that he had no alcohol for 1 week. He reports feelings of anxiety in that he is here in the hospital and is not able to attend classes and study for his exams. He reports no history of hypomanic or manic episodes he reports no history of hallucinations or specific delusions. He reports having no firearms at home. PAST PSYCHIATRIC HISTORY: As the patient's second inpatient psychiatric hospitalization, he states in 2014 he was admitted to [facility] psychiatric floor for 1 day out of concern he was having suicidal ideation. He states he was evaluated and released after only 1 day. In the past he has tried Xanax and Vivitrol. He states the Prozac that he is currently on is effective and does not wish to change that medication. He reports no history of suicide attempts however November of this year he was admitted to the intensive care unit after an overdose with baclofen Prozac and hydroxyzine. He states that he was experienci ng pain due to his herniated disks in his upper and lower back and he had accidentally overuse the baclofen. He reports that he was involved in direct contact well and doesn't storm while in the but states he was never diagnosed with posttraumatic stress disorder and he was officially evaluated. PMH: Herniated discs in his cervical and lumbar back, obstructive sleep apnea ALLERGIES: NO KNOWN DRUG ALLERGIES MEDICATIONS: Refer to [facility] CHEMICAL DEPENDENCY HISTORY: The patient reports a history of alcohol use disorder ever since he was in the [employer] at its worst he would drink 30-35 beers in a 24-hour period most recently his alcohol use is quantified above. His longest sobriety was 4 years. He states he has been able to stop for short periods of time but had always rationalized how it's okay to restart. He has been in inpatient chemical dependency treatment 3 times while in the . FAMILY PSYCHIATRIC HISTORY: He states that his sister and brother are known to have depression, no suicides in the family FAMILY CHEMICAL DEPENDENCY HISTORY: His younger brother is known to have alcohol use disorder SOCIAL HISTORY: The patient is 49 years old he is for the second time. He is recently as of January his first marriage was approximately 22 years. He has 3 biological children that reside in [facility]. He resides with his . 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 He has a history of service for approximately 30 years. 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 There is some documentation that he receives disability through the . Legal history none abuse history none MENTAL STATUS EXAM: Patient is a male appearing his stated age. He is dressed in his own clothing hygiene grooming adequate. Eye contact is appropriate. Speech is fluent spontaneous nonpressured. He indicates his mood is nervous about missing classes otherwise he feels fine. He reports no hopelessness thinking he reports no suicidal ideation intent or plan. He reports no homicidal ideation intent or plan. He endorses no auditory or visual hallucinations or any specific delusions. There is no observed evidence of psychosis. He demonstrates no tangential thinking loose associations or flight of ideas he does not appear hypomanic or manic. He demonstrates no verbal or physical aggressiveness he demonstrates no involuntary repetitive movements. Affect is appropriately expressive. He is oriented to person place and date he is able to name the days of the week backwards. STRENGTHS/WEAKNESSES: Strengths: Support from , housing, school career weaknesses: Alcohol use disorder INTELLECTUAL FUNCTIONING: Average to above average IMPRESSIONS: [] 1. Major depressive disorder recurrent moderate, alcohol use disorder moderate to severe PLAN: The patient has been admitted to the mental health unit he is willing to sign in voluntarily. We reviewed his presenting symptoms and treatment options. We decided to continue the Prozac 40 mg daily he is willing to restart naltrexone 50 mg daily. He does not feel that he needs to participate in inpatient chemical dependency treatment at this time. He will be seen by internal medicine for routine history and physical exam. Social work will meet with the patient to complete a psychosocial assessment. We will involve his in treatment and discharge planning as he will allow. He is hoping to be discharged as soon as possible. We will need to get collateral information from his and assess his acute safety risk over the next 24 hours.
[2019-07-10] MEDS ORDERED: IBUPROFEN 400 MG TAB PO PRN (17:37)
--- NOTE | 2019-07-10 17:38 | P.HPMEDMHU ---
History of Present Illness H&P Date: 07/10/19 Chief Complaint: Agitation Patient is a 49-year-old male with a past medical history of high blood pressure not requiring medications that happened when he was drinking alcohol heavily, degenerative disc disease with chronic pain, and tobacco abuse who is currently admitted to the mental health unit for possible suicidal ideation. Patient seen and examined. He reports that he has been struggling with his alcohol use recently and it has been increasing secondary to stress. He is very concerned that he has finals this coming week in order to completely his bachelor's degree. He insists that he is not suicidal nor has he ever been suicidal and that the police officer booking was an accurate with telemetry on his petition and states that about a camera which showed that he stated he was not suicidal. He states his dad came over he was drinking and the patient initially called 911 and thinking quickly turned around him. He does report that he has had a decreased appetite but his weight has remained stable. No recent cough, cold, fevers, flus. He has Chronic pain in neck and back due to degenerative disc disease and they have recommended surgery but he has had to undergo this. He also reports intermittent loose stools that he feels are secondary to not eating consistently. He denied having a primary care physician to me. Of note it does appear that he was in the emergency department on 06/15/19 with complaints of depression and suicidal ideation. Presentation does sound similar to 07/09 Review of Systems Pertinent positives and negatives as discussed in HPI, a complete review of systems was performed and all other systems are negative. Past Medical History Past Medical History: Hypertension Additional Past Medical History / Comment(s): Alcohol abuse, chronic anxiety, depression, possible bipolar disorder, history of buldging discs in neck and back, JOSSY and uses CPAP at home History of Any Multi-Drug Resistant Organisms: None Reported Past Surgical History: Orthopedic Surgery Additional Past Surgical History / Comment(s): Right little toe bunectomy, cyst removed from neck and lip Past Anesthesia/Blood Transfusion Reactions: No Reported Reaction Past Psychological History: Anxiety, Depression, PTSD Smoking Status: Current every day smoker Past Alcohol Use History: Daily, Heavy Past Drug Use History: None Reported Additional History: 1/4 PPD, No daily alcohol intake, drinking infrequently but 6-10 beers at a time per patient, No illicit drug use - Past Family History Father Family Medical History: AFIB Additional Family Medical History / Comment(s): "His dad has to take medication for his heart" Mother Additional Family Medical History / Comment(s): "Grandmother of esophageal cancer and aunt of brain cancer." Medications and Allergies Home Medications Medication Instructions Recorded Confirmed Type FLUoxetine HCL [PROzac] 40 mg PO DAILY 08/04/17 07/10/19 History Allergies Allergy/AdvReac Type Severity Reaction Status Date / Time No Known Allergies Allergy Verified 07/10/19 07:35 Physical Exam Osteopathic Statement: *. No significant issues noted on an osteopathic structural exam other than those noted in the History and Physical/Consult. Vitals: Vital Signs Temp Pulse Pulse Resp BP BP Pulse Ox 07/10/19 07:24 97.8 F 109 H 18 138/79 99 07/09/19 22:06 100 18 122/78 99 07/09/19 15:09 98 F 102 H 18 142/94 96 Intake and Output 07/09/19 07/10/19 07/10/19 22:59 06:59 14:59 Other: Weight 90.718 kg General: diaphoretic,, no distress, appears at stated age, normal weight Derm: no unusual rashes/lesions no unusual ecchymoses, warm, dry Head: atraumatic, normocephalic, symmetric Eyes: EOMI, no lid lag, anicteric sclera, pupils equal round reactive to light ENT: Nose and ears atraumatic, no thrush, no pharyngeal erythema Neck: No thyromegaly, no cervical lymphadenopathy, trachea midline, supple Mouth: no lip lesion, mucus membranes moist Cardiovascular: S1S2 reg, no murmur, positive posterior tibial pulse bilateral, no edema, capillary refill less than 2 seconds Lungs: CTA bilateral, no rhonchi, no rales , no accessory muscle use Abdominal: soft, nontender to palpation, no guarding, no appreciable organomega ly, normal bowel sounds Ext: no gross muscle atrophy, muscle strength 5 out of 5 in all 4 extremities grossly, no contractures, Neuro: CN II-XI grossly intact, light touch intact all 4 extremities, finger to nose within normal limits, Psych: Alert, oriented, Pleasant Cranial Nerve Examination - Cranial Nerves Cranial Nerve II- Optic: Intact Cranial Nerve III- Oculomotor: Intact Cranial Nerve IV- Trochlear: Intact Cranial Nerve V- Trigeminal: Intact Cranial Nerve - Abducens: Intact Cranial Nerve VII- Facial: Intact Cranial Nerve VIII- Auditory: Intact Cranial Nerve IX- Glossopharyngeal: Intact Cranial Nerve X- Vagus: Intact Cranial Nerve XI- Accessory: Intact Cranial Nerve XII- Hypoglossal: Intact Thrombosis Risk Factor Assmnt - DVT/VTE Prophylaxis DVT/VTE Prophylaxis: Low risk, early ambulation encouraged Assessment and Plan Assessment: Chronic back and neck pain - tylenol - baclofen - motrin as needed for pain ETOH abuse - thiamine, folic acid - ativan HTN - not on medications chronically - BP currently controlled - follow blood pressure JOSSY - cold bring home CPAP if able to use on unit Depression - our psych management Thank you for allowing us to participate in the care of this pleasant patient. Do not hesitate to contact us with questions. Someone can be reached from the [facility] hospitalist group all hours of the day at [phone] or via [employer].
[2019-07-10] MEDS: BACLOFEN 10 MG TAB PO SCH (20:58)
[2019-07-11] MEDS: NICOTINE 4 MG PO PRN ×7 (05:05→22:37)
[2019-07-11] MEDS: LORazepam 1 MG TAB PO PRN (05:08)
[2019-07-11 08:24] LABS: Basophils % (A) 1 %; Eosinophils # (A) 0.1 k/uL (0-0.7); Eosinophils % (A) 2 %; HCT 51.2 % (39.0-53.0); HGB 17.1 gm/dL (13.0-17.5); Lymphocytes # (A) 2.2 k/uL (1.0-4.8); Lymphocytes % (A) 28 %; MCH 31.2 pg (25.0-35.0); MCHC 33.3 g/dL (31.0-37.0); MCV 93.7 fL (80.0-100.0); Mean Platelet Volume 6.4; Monocytes # (A) 0.6 k/uL (0-1.0); Monocytes % (A) 8 %; Neutrophils # (A) 4.6 k/uL (1.3-7.7); Neutrophils % (A) 60 %; Platelet Count 420 k/uL (150-450); RBC 5.47 m/uL (4.30-5.90); RDW 12.8 % (11.5-15.5); WBC 7.7 k/uL (3.8-10.6)
[2019-07-11 08:38] LABS: ALT 46 U/L (21-72); AST 64 U/L (17-59); African American GFR (CKD) >90 (>60 ml/min/1.73 sqM); Albumin 4.7 g/dL (3.5-5.0); Alkaline Phosphatase 79 U/L (38-126); Anion Gap 8 mmol/L; Bilirubin, Delta 0.3 mg/dL (0.0-0.2); Bilirubin,Unconjugated 0.7 mg/dL (0.0-1.1); Blood Urea Nitrogen 17 mg/dL (9-20); Calcium 10.6 mg/dL (8.4-10.2); Carbon Dioxide 33 mmol/L (22-30); Chloride 98 mmol/L (98-107); Cholesterol 187 mg/dL (<200); Glucose 110 mg/dL (74-99); HDL Cholesterol 74 mg/dL (40-60); LDL Cholesterol,Calculated 75 mg/dL (0-99); Non-African American GFR(CKD) >90 (>60 ml/min/1.73 sqM); Potassium 4.9 mmol/L (3.5-5.1); Sodium 139 mmol/L (137-145); Total Protein 8.1 g/dL (6.3-8.2); Triglycerides 192 mg/dL (<150)
[2019-07-11] MEDS: THIAMINE 100 MG TAB PO SCH (08:50)
[2019-07-11] MEDS: FOLIC ACID 1 MG TAB PO SCH (08:50)
[2019-07-11] MEDS: NALTREXONE HCL 50 MG TAB PO SCH (08:50)
[2019-07-11] MEDS: FLUoxetine HCL 20 MG CAP PO SCH (08:50)
[2019-07-11 12:25] VITALS: RESP 16
--- NOTE | 2019-07-11 14:38 | P.PN ---
Progress Note - Text Progress Note Date: 07/11/19 Interval History: Patient was seen wandering the hallways and was agreeable to speak to video game script writer t his morning. Patient appeared to be somewhat anxious standing near the nurse's desk with folders and hand. Patient was directable and agreeable to speak to video game script writer and discussed the circumstances of him coming into the hospital. Patient adamantly denied that he was suicidal and he came in the hospital and he claims that the body cam on the police's [place] will show that he was not suicidal at that time. He stated that he has been suicidal in the past but not currently. He claims that he does have a home with alcohol and claims that he would like to be [facility] with [facility] He claims that he's been dealing with many stressors in school trying to get homework done different assignments and has been studying for his finals. He states that he is motivated to quit drinking alcohol and was agreeable to take naltrexone and get the vivitrol injection after discharge. He states that he slept well last night however is somewhat anxious and appears to be sweating during conversation and mild tremors. Patient had elevation in his heart rate and blood pressure this morning. At this time patient denies any suicidal or homical ideations, intent or plan. Patient denies any auditory, visual hallucinations and denies any paranoia or delusions. Patient denies any side effects from the medications and has been compliant with meds. Mental Status Exam: General Appearance: Patient appears to be stated age is alert, pleasant, and appears to be sweating. Improving hygiene and grooming. Fair eye contact. Behavior: Patient is calmly seated without any agitated behavior. Directable. Speech: Patient's speech is fluent and nonpressured. Soft-spoken. Mood/Affect: Mood is improving mildly, affect is congruent and constricted. Suicidality/Homicidality: Patient denies having any suicidal or homicidal ideation intent or plan. Perceptions: Patient denies any auditory or visual hallucinations. Though content/process: There is no evidence of any delusional thought content and thought process is linear and goal-directed. Focused on discharge. Memory and concentration: AOX3, grossly intact for the purposes of this session Judgment and insight: Improving. Assessment Major depressive disorder, recurrent, moderate. Alcohol use disorder, moderate-severe Plan: -Patient continues to meet criteria for inpatient psychiatric admission for symptom stabilization and safety. Patient has signed adult voluntary form and medication consent and was placed in patient's chart. -Medications: Continue with Prozac 40 mg daily for mood/anxiety. Continue with naltrexone by mouth 50 mg daily for alcohol cravings. -Spoke with patient about substance use rehab and other options and patient states that due to his schedule of school that he would like to do outpatient community mental health and substance use treatment at the [facility]. -Continue with CIWA and Ativan for etoh withdrawal. Patient has elevation in blood pressure and heart rate. We'll continue to monitor -Started on Librium 25 mg twice a day for alcohol withdrawal -When necessary Geodon and Ativan for agitation/aggression. -NRT -nicotine lozenge -SW on board for discharge planning. home health care social worker spoke with today who claims that patient does have a problem with alcohol and is supportive with him getting treatment as an outpatient. Agreeable to pick patient up tomorrow upon discharge. Likely discharge tomorrow back home.
[2019-07-11 19:39] LABS: Hemoglobin A1C 5.2 % (4.0-6.0)
[2019-07-11] MEDS: chlordiazePOXIDE 25 MG CAP PO SCH (21:34)
[2019-07-11] MEDS: BACLOFEN 10 MG TAB PO SCH (21:34)
[2019-07-12 00:28] VITALS: TEMP 98.2
[2019-07-12] MEDS: NICOTINE 4 MG PO PRN ×4 (01:08→11:27)
[2019-07-12] MEDS: FOLIC ACID 1 MG TAB PO SCH (08:37)
[2019-07-12] MEDS: FLUoxetine HCL 20 MG CAP PO SCH (08:37)
[2019-07-12] MEDS: NALTREXONE HCL 50 MG TAB PO SCH (08:38)
[2019-07-12] MEDS: THIAMINE 100 MG TAB PO SCH (08:38)
[2019-07-12] MEDS: chlordiazePOXIDE 25 MG CAP PO SCH (08:38)
[2019-07-12 10:12] VITALS: BP 121/83; PULSE 101
--- NOTE | 2019-07-12 11:24 | P.DS ---
Providers Date of admission: 07/10/19 05:21 Expected date of discharge: 07/12/19 Attending physician: Darrius Lee MD Consults: 07/10/19 05:27 Consult Physician Routine Consulting Provider: Juancho Coulter Consult Reason/Comments: Medical H and P Do you want consulting provider notified?: Yes Primary care physician: [facility] - Discharge Diagnosis(es) (1) Major depressive disorder, recurrent, moderate Current Visit: Yes Status: Acute Priority: High (2) Alcohol abuse Current Visit: Yes Status: Acute Priority: Medium Hospital Course: Admission HPI: This patient is a 49-year-old male who was admitted to the mental health unit through the emergency room with concerns he was having suicidal ideation. The patient presented with a petition completed by a piece officer stating "subject made statements that he was going to kill himself and commit suicide." The patient states that he agrees he has a problem without the smith but he was not suicidal and he states he never made any statements that he was suicidal. He challenges us to obtain any footage from cameras that police officers may have used during that interaction. 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 He feels that the Prozac is effective. He indicates that he has had several stressors to deal with lately. He is currently in college attempting to complete his bachelor's degree he is approaching final week. He states that he is just moved from [place] to a new home in [place] and he has a regular commute to [place] to attend classes. Appetite is been decreased energy levels been stable. He reports no tearfulness or crying spells. He indicates he does not feel hopeless. He has been consuming alcohol excessively again. He indicates he is struggled with alcohol use problems ever since he was in the [place]. During this past week he consumes 6 beers on Thursday 18 on 12 on Thursday. Prior to that he had no alcohol for 1 week. He reports feelings of anxiety in that he is here in the hospital and is not able to attend classes and study for his exams. He reports no history of hypomanic or manic episodes he reports no history of hallucinations or specific delusions. He reports having no firearms at home. Hospital course: Upon admission to the unit patient was initially []. Patient was however directable and agreeable to commence treatment. Patient got along well with other patients on the unit and followed unit protocol. Patient was compliant with the medications and denied any side effects throughout hospital course. Patient was started on []. Patient spoke of [his] stressors and engaged in therapy both group and individual. Patient was also seen by medical team for history and physical exam. [] Throughout the course of the hospitalization patient gradually improved with regards to [mood, anxiety], sleep and became future oriented with improved insight and judgment. On the day of discharge patient denied any suicidal or homicidal ideations intent or plan denied any auditory or visual hallucinations. Patient endorsed wanting to live for [his health and family.] The patient denied any access to guns or weapons. Patient denied any paranoia and did not endorse any delusions. [Patient does have a significant history of substance abuse and was counseled on abstaining from all substances including alcohol and marijuana.] Patient was also counseled on the medications and need for regular compliance and was encouraged to follow-up with their outpatient appointment for mental health and also for primary care. [Prior to discharge a family meeting will be arranged by social media designer to answer any questions and ensure safety upon discharge.] Mental status exam: General Appearance: [Patient appears to be stated age is alert, pleasant, and cooperative. Patient is in no acute distress and has fair hygiene and grooming] Behavior: [Patient is calmly seated without any agitated behavior.] Speech: Patient's speech is fluent and nonpressured. Mood/Affect: Patient reports their mood is "[good]", affect is congruent and euthymic. Suicidality/Homicidality: Patient denies having any suicidal or homicidal ideation intent or plan. Perceptions: Patient denies any auditory or visual hallucinations. Though content/process: There is no evidence of any delusional thought content and thought process is linear and goal-directed. Memory and concentration: AOX3, grossly intact for the purposes of this session. Can spell "WORLD" backwards correctly. Judgment and insight: fair, improved Impression: [] Plan: -Continue with discharge today as patient has improved and stabilized psychiatrically and is not currently an imminent threat to [himself] and/or others. -Continue medications: [] -Patient was counseled on the need for medication compliance and appropriate follow-up at mental health and also primary care for medical issues. Patient verbalized understanding and agreed. -Social work to [arrange for and conduct family meeting to ensure safety upon discharge and answer any questions/concerns.] Social work also to arrange for patients follow up appointments [with [facility]] for psychiatric care along with follow up with primary care provider. -Patient counseled on abstaining from recreational drugs and marijuana and alcohol. Was informed/educated on the adverse effects on their physical and mental health. [Patient verbally agreed and understood] -Patient was instructed to return to the hospital or seek immediate medical care if their psychiatric or medical symptoms do worsen or reoccur. [INSERT DATA FORMATS] Patient Condition at Discharge: Stable Plan - Discharge Summary Discharge Rx Participant: No New Discharge Prescriptions: New Folic Acid 1 mg PO DAILY 28 Days tab Baclofen [Lioresal] 10 mg PO HS tab Ibuprofen [Motrin] 400 mg PO Q6HR PRN tab PRN Reason: Pain FLUoxetine HCL [PROzac] 40 mg PO DAILY 28 Days cap Naltrexone HCl [Revia] 50 mg PO DAILY 28 Days tab Thiamine [Vitamin B-1] 100 mg PO DAILY 28 Days tab Discontinued FLUoxetine HCL [PROzac] 40 mg PO DAILY Discharge Medication List Baclofen [Lioresal] 10 mg PO HS tab 07/12/19 [Rx] FLUoxetine HCL [PROzac] 40 mg PO DAILY 28 Days cap 07/12/19 [Rx] Folic Acid 1 mg PO DAILY 28 Days tab 07/12/19 [Rx] Ibuprofen [Motrin] 400 mg PO Q6HR PRN tab 07/12/19 [Rx] Naltrexone HCl [Revia] 50 mg PO DAILY 28 Days tab 07/12/19 [Rx] Thiamine [Vitamin B-1] 100 mg PO DAILY 28 Days tab 07/12/19 [Rx] Follow up Appointment(s)/Referral(s): [facility]Outside] - 07/14/19 8:30 am (Walk In appointment [phone] Thurs [phone]) [facility] [Primary Care Provider] - 1-2 days Activity/Diet/Wound Care/Special Instructions: Activity and diet as tolerated. Avoid the use of street drugs and alcohol. Take all medications as prescribed. When you are in need of refills on your medications please contact your medical provider and/or outpatient psychiatrist to have this done. Please go to scheduled outpatient appointment for aftercare treatment. If symptoms return or become worse, call the crisis line at and/or go to the nearest emergency room for evaluation. Discharge Disposition: HOME SELF-CARE
--- NOTE | 2019-07-12 11:38 | P.DS ---
Providers Date of admission: 07/10/19 05:21 Expected date of discharge: 07/12/19 Attending physician: Darrius Lee MD Consults: 07/10/19 05:27 Consult Physician Routine Consulting Provider: Juancho Coulter Consult Reason/Comments: Medical H and P Do you want consulting provider notified?: Yes Primary care physician: [facility] Clinic - Discharge Diagnosis(es) (1) Major depressive disorder, recurrent, moderate Status: Acute Priority: High (2) Alcohol abuse Status: Acute Priority: Medium Hospital Course: Admission HPI: This patient is a 49-year-old male who was admitted to the mental health unit through the emergency room with concerns he was having suicidal ideation. The patient presented with a petition completed by a piece officer stating "subject made statements that he was going to kill himself and commit suicide." The patient states that he agrees he has a problem without the smith but he was not suicidal and he states he never made any statements that he was suicidal. He challenges us to obtain any footage from cameras that police officers may have used during that interaction. 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 He feels that the Prozac is effective. He indicates that he has had several stressors to deal with lately. He is currently in college attempting to complete his bachelor's degree he is approaching final week. He states that he is just moved from [place] to a new home in [place] and he has a regular commute to [place] to attend classes. Appetite is been decreased energy levels been stable. He reports no tearfulness or crying spells. He indicates he does not feel hopeless. He has been consuming alcohol excessively again. He indicates he is struggled with alcohol use problems ever since he was in the [place]. During this past week he consumes 6 beers on Thursday 18 on 12 on Thursday. Prior to that he had no alcohol for 1 week. He reports feelings of anxiety in that he is here in the hospital and is not able to attend classes and study for his exams. He reports no history of hypomanic or manic episodes he reports no history of hallucinations or specific delusions. He reports having no firearms at home. Hospital course: Upon admission to the unit patient was initially directable and agreeable to commence treatment. Patient got along well with other patients on the unit and followed unit protocol. Patient was compliant with the medications and denied any side effects throughout hospital course. Patient was restarted on his home dose of Prozac 40 mg daily for mood/anxiety. Patient was also started on naltrexone by mouth 50 mg daily for alcohol cravings. Patient did have elevation in his blood pressure and tachycardia and due to his significant history of alcohol use was placed on CIWA with when necessary Ativan along with Librium scheduled and titrated off prior to discharge. Patient spoke of his stressors and engaged in therapy both group and individual. Patient was also seen by medical team for history and physical exam. Throughout the course of the hospitalization patient gradually improved with regards to mood, anxiety, sleep and became future oriented with improved insight and judgment. On the day of discharge patient denied any suicidal or homicidal ideations intent or plan denied any auditory or visual hallucinations. Patient endorsed wanting to live for his health and family. The patient denied any access to guns or weapons. Patient denied any paranoia and did not endorse any delusions. Patient does have a significant history of substance abuse and was counseled on abstaining from all substances including alcohol and marijuana. Patient did declined any inpatient substance use rehab however did agreed to continue with by mouth naltrexone and get Vivitrol injection from [facility] as an outpatient for his alcohol use. Patient also claims that he will get connected with the [facility] for outpatient substance use treatment. Patient was also counseled on the medications and need for regular compliance and was encouraged to follow-up with their outpatient appointment for mental health and also for primary care. Prior to discharge a family meeting will be arranged by director of social work to answer any questions and ensure safety upon discharge. Mental status exam: General Appearance: Patient appears to be stated age is alert, unshaven, pleasant, and cooperative. Patient is in no acute distress and has fair hygiene and grooming Behavior: Patient is calmly seated without any agitated behavior. Speech: Patient's speech is fluent and nonpressured. Mood/Affect: Patient reports their mood is "much better", affect is congruent and euthymic. Suicidality/Homicidality: Patient denies having any suicidal or homicidal ideation intent or plan. Perceptions: Patient denies any auditory or visual hallucinations. Though content/process: There is no evidence of any delusional thought content and thought process is linear and goal-directed. Memory and concentration: AOX3, grossly intact for the purposes of this session. Can spell "WORLD" backwards correctly. Judgment and insight: fair, improved Impression: Major depressive disorder, recurrent, moderate Alcohol use disorder, moderate-severe Plan: -Continue with discharge today as patient has improved and stabilized psychiatrically and is not currently an imminent threat to himself and/or others. -Continue medications: Continue with Prozac 40 mg daily for mood/anxiety, naltrexone by mouth 50 mg daily for alcohol cravings. Patient will be following up with [facility] to get placed on monthly Vivitrol injections or alcohol cravings. -Patient was counseled on the need for medication compliance and appropriate follow-up at mental health and also primary care for medical issues. Patient verbalized understanding and agreed. -Social work to arrange for and conduct family meeting to ensure safety upon discharge and answer any questions/concerns. Social work also to arrange for patients follow up appointments with [facility] and [facility] for psychiatric care along with follow up with primary care provider. -Patient counseled on abstaining from recreational drugs and marijuana and alcohol. Was informed/educated on the adverse effects on their physical and mental health. Patient verbally agreed and understood. Patient declined any inpatient substance use rehab however did agreed to continue with by mouth naltrexone and get Vivitrol injection from [facility] as an outpatient for his alcohol use. [facility] also [facility] -Patient was instructed to return to the hospital or seek immediate medical care if their psychiatric or medical symptoms do worsen or reoccur. Allergies Allergy/AdvReac Type Severity Reaction Status Date / Time No Known Allergies Allergy Verified 07/10/19 07:35 Laboratory Results WBC 7.7 k/uL (3.8-10.6) 07/11/19 08:01 RBC 5.47 m/uL (4.30-5.90) 07/11/19 08:01 Hgb 17.1 gm/dL (13.0-17.5) 07/11/19 08:01 Hct 51.2 % (39.0-53.0) 07/11/19 08:01 MCV 93.7 fL (80.0-100.0) 07/11/19 08:01 MCH 31.2 pg (25.0-35.0) 07/11/19 08:01 MCHC 33.3 g/dL (31.0-37.0) 07/11/19 08:01 RDW 12.8 % (11.5-15.5) 07/11/19 08:01 Plt Count 420 k/uL (150-450) 07/11/19 08:01 Neutrophils % 60 % 07/11/19 08:01 Lymphocytes % 28 % 07/11/19 08:01 Monocytes % 8 % 07/11/19 08:01 Eosinophils % 2 % 07/11/19 08:01 Basophils % 1 % 07/11/19 08:01 Neutrophils # 4.6 k/uL (1.3-7.7) 07/11/19 08:01 Lymphocytes # 2.2 k/uL (1.0-4.8) 07/11/19 08:01 Monocytes # 0.6 k/uL (0-1.0) 07/11/19 08:01 Eosinophils # 0.1 k/uL (0-0.7) 07/11/19 08:01 Basophils # 0.0 k/uL (0-0.2) 07/11/19 08:01 Sodium 139 mmol/L (137-145) 07/11/19 08:01 Potassium 4.9 mmol/L (3.5-5.1) 07/11/19 08:01 Chloride 98 mmol/L (98-107) 07/11/19 08:01 Carbon Dioxide 33 mmol/L (22-30) H 07/11/19 08:01 Anion Gap 8 mmol/L 07/11/19 08:01 BUN 17 mg/dL (9-20) 07/11/19 08:01 Creatinine 0.79 mg/dL (0.66-1.25) 07/11/19 08:01 Est GFR (CKD-EPI)AfAm >90 (>60 ml/min/1.73 sqM) 07/11/19 08:01 Est GFR (CKD-EPI)NonAf >90 (>60 ml/min/1.73 sqM) 07/11/19 08:01 Glucose 110 mg/dL (74-99) H 07/11/19 08:[address] Glu mg/dL 103 07/11/19 08:01 Hemoglobin A1c 5.2 % (4.0-6.0) 07/11/19 08:01 Calcium 10.6 mg/dL (8.4-10.2) H 07/11/19 08:01 Total Bilirubin 1.0 mg/dL (0.2-1.3) 07/11/19 08:01 Conjugated Bilirubin 0.0 mg/dL (0.0-0.3) 07/11/19 08:01 Unconjugated Bilirubin 0.7 mg/dL (0.0-1.1) 07/11/19 08:01 Delta Bilirubin 0.3 mg/dL (0.0-0.2) H 07/11/19 08:01 AST 64 U/L (17-59) H 07/11/19 08:01 ALT 46 U/L (21-72) 07/11/19 08:01 Alkaline Phosphatase 79 U/L (38-126) 07/11/19 08:01 Total Protein 8.1 g/dL (6.3-8.2) 07/11/19 08:01 Albumin 4.7 g/dL (3.5-5.0) 07/11/19 08:01 Triglycerides 192 mg/dL (<150) H 07/11/19 08:01 Cholesterol 187 mg/dL (<200) 07/11/19 08:01 LDL Cholesterol, Calc 75 mg/dL (0-99) 07/11/19 08:01 HDL Cholesterol 74 mg/dL (40-60) H 07/11/19 08:01 TSH 1.610 mIU/L (0.465-4.680) 07/11/19 08:01 Vital Signs Temp 98.2 F 07/12/19 00:27 Pulse 101 H 07/12/19 08:40 Resp 16 07/12/19 08:40 BP 121/83 07/12/19 08:40 Pulse Ox 97 07/12/19 00:27 Patient Condition at Discharge: Stable Plan - Discharge Summary Discharge Rx Participant: No New Discharge Prescriptions: New Folic Acid 1 mg PO DAILY 28 Days tab Baclofen [Lioresal] 10 mg PO HS tab Ibuprofen [Motrin] 400 mg PO Q6HR PRN tab PRN Reason: Pain FLUoxetine HCL [PROzac] 40 mg PO DAILY 28 Days cap Naltrexone HCl [Revia] 50 mg PO DAILY 28 Days tab Thiamine [Vitamin B-1] 100 mg PO DAILY 28 Days tab Discontinued FLUoxetine HCL [PROzac] 40 mg PO DAILY Discharge Medication List Baclofen [Lioresal] 10 mg PO HS tab 07/12/19 [Rx] FLUoxetine HCL [PROzac] 40 mg PO DAILY 28 Days cap 07/12/19 [Rx] Folic Acid 1 mg PO DAILY 28 Days tab 07/12/19 [Rx] Ibuprofen [Motrin] 400 mg PO Q6HR PRN tab 07/12/19 [Rx] Naltrexone HCl [Revia] 50 mg PO DAILY 28 Days tab 07/12/19 [Rx] Thiamine [Vitamin B-1] 100 mg PO DAILY 28 Days tab 07/12/19 [Rx] Follow up Appointment(s)/Referral(s): [facility] [Outside] - 07/14/19 8:30 am (Walk In appointment Tues [id number] Thurs [id number]) [facility] [Primary Care Provider] - 1-2 days Patient Instructions/Handouts: Depression (DC), Alcohol Intoxication (DC) Activity/Diet/Wound Care/Special Instructions: Activity and diet as tolerated. Avoid the use of street drugs and alcohol. Take all medications as prescribed. When you are in need of refills on your medications please contact your medical provider and/or outpatient psychiatrist to have this done. Please go to scheduled outpatient appointment for aftercare treatment. If symptoms return or become worse, call the crisis line at and/or go to the nearest emergency room for evaluation. Discharge Disposition: HOME SELF-CARE
== END 2019-07-12 12:08 | disposition home or self-care (01) | DRG 885 ==
LOC: EC 15:04 → 3MHU 07-10 05:21
PROVIDERS: ADMIT Psychiatry & Neurology Psychiatry; ATTEND Psychiatry & Neurology Psychiatry
DX: F33.1 Major depressive disorder, recurrent, moderate (principal); F10.20 Alcohol dependence, uncomplicated; F17.200 Nicotine dependence, unspecified, uncomplicated; F41.9 Anxiety disorder, unspecified; Z79.899 Other long term (current) drug therapy; Z81.8 Family history of other mental and behavioral disorders
CPT/HCPCS: 80053; 80061; 82075; 82248; 83036; 84443; 85025; 96372; 99285

== ENCOUNTER 2019-08-19 16:43 | Emergency (ER) | payer OTHER ==
[2019-08-19 16:59] VITALS: RESP 20
[2019-08-19] MEDS ORDERED: LORazepam 2 MG/ML INJ IM STA ×2 (17:03→18:09)
--- NOTE | 2019-08-19 17:38 | ED ---
Psych HPI - General Source: police Mode of arrival: ambulatory <Evangelina Estrada - Last Filed: 08/19/19 19:33> <Maurice Wood - Last Filed: 08/20/19 04:06> - General Chief Complaint: Psychiatric Symptoms Stated Complaint: mental health Time Seen by Provider: 08/19/19 17:07 - History of Present Illness Initial Comments: Patient is a 49-year-old male presenting to the emergency department with police escort for psychiatric evaluation. Patient was agitated upon arrival, blood alcohol was 0.256. States he "drank a lot of beers." He keeps asking for his . He is not willing to talk anymore at this time. Vital signs are stable upon arrival. (Evangelina Estrada) - Related Data Previous Rx's Medication Instructions Recorded Baclofen [Lioresal] 10 mg PO HS tab 07/12/19 FLUoxetine HCL [PROzac] 40 mg PO DAILY 28 Days cap 07/12/19 Folic Acid 1 mg PO DAILY 28 Days tab 07/12/19 Ibuprofen [Motrin] 400 mg PO Q6HR PRN tab 07/12/19 Naltrexone HCl [Revia] 50 mg PO DAILY 28 Days tab 07/12/19 Thiamine [Vitamin B-1] 100 mg PO DAILY 28 Days tab 07/12/19 Allergies Allergy/AdvReac Type Severity Reaction Status Date / Time No Known Allergies Allergy Verified 08/19/19 16:59 Review of Systems ROS Other: All systems not noted in ROS Statement are negative. <Evangelina Estrada - Last Filed: 08/19/19 19:33> ROS Other: All systems not noted in ROS Statement are negative. <Maurice Wood - Last Filed: 08/20/19 04:06> ROS Statement: Those systems with pertinent positive or pertinent negative responses have been documented in the HPI. Past Medical History Past Medical History: Hypertension Additional Past Medical History / Comment(s): Alcohol abuse, chronic anxiety, depression, possible bipolar disorder, possible PTSD History of Any Multi-Drug Resistant Organisms: None Reported Past Surgical History: Orthopedic Surgery Additional Past Surgical History / Comment(s): Herniated discs in back Past Anesthesia/Blood Transfusion Reactions: No Reported Reaction Past Psychological History: Anxiety, Depression, PTSD Smoking Status: Current every day smoker Past Alcohol Use History: Daily, Heavy Past Drug Use History: None Reported - Past Family History Father Family Medical History: AFIB Additional Family Medical History / Comment(s): "His dad has to take medication for his heart" Mother Additional Family Medical History / Comment(s): "Grandmother of esophageal cancer and aunt of brain cancer." <Evangelina Estrada - Last Filed: 08/19/19 19:33> General Exam Limitations: no limitations <NatalieEvangelina Michael - Last Filed: 08/19/19 19:33> - General Exam Comments Initial Comments: GENERAL: Anxious, intoxicated. HEAD: Atraumatic, normocephalic. EYES: Pupils equal round and reactive to light, extraocular movements intact, sclera anicteric, conjunctiva are normal. ENT: TMs normal, nares patent, oropharynx clear without exudates. Moist mucous membranes. NECK: Normal range of motion, supple without lymphadenopathy or JVD. LUNGS: Breath sounds clear to auscultation bilaterally and equal. No wheezes rales or rhonchi. HEART: Regular rate and rhythm without murmurs, rubs or gallops. ABDOMEN: Soft, nontender, normoactive bowel sounds. No guarding, no rebound. No masses appreciated. : Deferred EXTREMITIES: Normal range of motion, no pitting or edema. No clubbing or cyanosis. NEUROLOGICAL: Normal speech, normal gait. PSYCH: Anxious, agitated, intoxicated. SKIN: Warm, Dry, normal turgor, no rashes or lesions noted. (Evangelina Estrada) Course <Maurice Wood - Last Filed: 08/20/19 04:06> Vital Signs 08/19/19 08/20/19 08/20/19 16:50 01:00 03:00 Temperature 97.6 F 97.8 F Pulse Rate 95 74 91 Respiratory 20 20 20 Rate Blood Pressure 142/78 128/72 144/84 O2 Sat by Pulse 99 97 98 Oximetry - Reevaluation(s) Reevaluation #1: 08/20/19 04:06 Medically clear here for psychiatric evaluation (Maurice Wood) Medical Decision Making <Maurice Wood - Last Filed: 08/20/19 04:06> - Medical Decision Making 49 male to the ER l for psychiatric evaluation. Patient is without significant complaint currently. Not homicidal or suicidal contract for safety and patient can be discharged home (Maurice Wood) - Lab Data Lab Results 08/19/19 Range/Units 17:20 Urine Color Light Yellow Urine Appearance Clear (Clear) Urine pH 7.0 (5.0-8.0) Ur Specific [place] 1.003 (1.001-1.035) Urine Protein Negative (Negative) Urine Glucose (UA) Negative (Negative) Urine Ketones Negative (Negative) Urine Blood Negative (Negative) Urine Nitrite Negative (Negative) Urine Bilirubin Negative (Negative) Urine Urobilinogen <2.0 (<2.0) mg/dL Ur Leukocyte Esterase Negative (Negative) Urine Opiates Screen Not Detected (NotDetected) Ur Oxycodone Screen Not Detected (NotDetected) Urine Methadone Screen Not Detected (NotDetected) Ur Propoxyphene Screen Not Detected (NotDetected) Ur Barbiturates Screen Not Detected (NotDetected) U Tricyclic Antidepress Not Detected (NotDetected) Ur Phencyclidine Scrn Not Detected (NotDetected) Ur Amphetamines Screen Not Detected (NotDetected) U Methamphetamines Scrn Not Detected (NotDetected) U Benzodiazepines Scrn Not Detected (NotDetected) Urine Cocaine Screen Not Detected (NotDetected) U Marijuana (THC) Screen Not Detected (NotDetected) Disposition <Evangelina Estrada - Last Filed: 08/19/19 19:33> Is patient prescribed a controlled substance at d/c from ED?: No <Maurice Wood - Last Filed: 08/20/19 04:06> Clinical Impression: Alcohol abuse, Depression, Major depressive disorder, recurrent, moderate Disposition: HOME SELF-CARE Condition: Fair Instructions (If sedation given, give patient instructions): Depression (ED) Referrals: [facility],Clinic [Primary Care Provider] - 1-2 days
[2019-08-19 18:12] LABS: Appearance,Urine Clear (Clear); Bilirubin,Urine Negative (Negative); Blood,Urine Negative (Negative); Color,Urine Light Yellow; Glucose,Urine (UA) Negative (Negative); Ketones,Urine Negative (Negative); Leukocyte Esterase,Urine Negative (Negative); Nitrite,Urine Negative (Negative); Protein,Urine Negative (Negative); Specific Gravity,Urine 1.003 (1.001-1.035); Urobilinogen,Urine <2.0 mg/dL (<2.0)
[2019-08-19] MEDS ORDERED: NICOTINE 21MG/24HR PATCH TRANSDERM STA (18:16)
[2019-08-19 18:27] LABS: Amphetamine Screen,Urine Not Detected (NotDetected); Barbiturate Screen,Urine Not Detected (NotDetected); Benzodiazepines Screen,Urine Not Detected (NotDetected); Cocaine Screen,Urine Not Detected (NotDetected); Methadone Screen, Urine Not Detected (NotDetected); Opiate Screen,Urine Not Detected (NotDetected); Oxycodone Screen, Urine Not Detected (NotDetected); Phencyclidine Screen,Urine Not Detected (NotDetected); Tricyclic Antidepressant,Urine Not Detected (NotDetected); Urn Cannabinoid Scrn Not Detected (NotDetected)
[2019-08-20 04:37] VITALS: BP 133/77; PULSE 80; TEMP 98
== END 2019-08-20 04:37 | disposition home or self-care (01) ==
LOC: EC 16:43
DX: F10.10 Alcohol abuse, uncomplicated (principal); F32.9 Major depressive disorder, single episode, unspecified; F17.200 Nicotine dependence, unspecified, uncomplicated; Y90.8 Blood alcohol level of 240 mg/100 ml or more
CPT/HCPCS: 99285 ×2; 96372 ×3; 82075; 81003; 80306; S4990; J2060

== ENCOUNTER 2019-08-28 15:46 | Inpatient (IN) | payer OTHER ==
--- NOTE | 2019-08-28 15:54 | ED ---
General Adult HPI - General Chief complaint: Alcohol Stated complaint: ETOH Time Seen by Provider: 08/28/19 15:54 Source: patient Mode of arrival: ambulatory Limitations: no limitations - History of Present Illness Initial comments: Dictation was produced using [employer] dictation software. please excuse any grammatical, word or spelling errors. Chief Complaint: 49-year-old male presents today with EtOH intoxication. History of Present Illness: 49-year-old male who presents today with his . Patient is a daily alcoholic ejects approximately 12 beers a day. He's been doing this for several years. He's had multiple attempts to try to try to detox himself. Patient has had withdrawal before. He states he has not sought medical attention for withdrawals in the past. Patient states his last alcoholic beverage was approximately 2 hours prior to arrival to the emergency department. She states that recently he has been trying to decrease his alcohol intake. Patient states he feels really anxious and shaky since tried to do this. Presents today with was concerned about his well-being. The ROS documented in this emergency department record has been reviewed and confirmed by me. Those systems with pertinent positive or negative responses have been documented in the HPI. All other systems are other negative and/or noncontributory. PHYSICAL EXAM: General Impression: Alert and oriented x3, not in acute distress, tremulous HEENT: Normocephalic atraumatic, extra-ocular movements intact, pupils equal and reactive to light bilaterally, mucous membranes moist. Cardiovascular: Heart regular rate and rhythm, S1&S2 audible, no murmurs, rubs or gallops Chest: Lungs clear to auscultation bilaterally, no rhonchi, no wheeze, no rales Abdomen: Bowel sounds present, abdomen soft, non-tender, non-distended, no organ omegaly Musculoskeletal: Pulses present and equal in all extremities, no peripheral edema Motor: no focal deficits noted Neurological: CN II-XII grossly intact, no focal motor or sensory deficits noted Skin: Intact with no visualized rashes Psych: Normal affect and mood ED course: 49-year-old male with clinical presentation consistent with EtOH withdrawal. Ends upon arrival are within acceptable limits. He is showing some features of a twitch withdrawal including some tremulousness. His hemodynamics however are stable. Patient is considered high risk for going into significant withdrawals given his daily EtOH intake. Laboratory evaluation obtained. CBC unremarkable. Metabolic panel is unremarkable. Serum alcohol is 215. Patient some Ativan with improvement of his withdrawal symptoms. Patient be admitted for EtOH withdrawal. This patient case with Dr. Cee who is taking call for [facility] group - Related Data Home Medications Medication Instructions Recorded Confirmed Cholecalciferol [Vitamin D3 (25 1,000 unit PO DAILY 08/28/19 08/28/19 Mcg = 1000 Iu)] Turmeric Root Extract [Turmeric] 500 mg PO DAILY 08/28/19 08/28/19 Vivitrol Unkown Dose 1 dose IM DIRECTED 08/28/19 08/28/19 Previous Rx's Medication Instructions Recorded FLUoxetine HCL [PROzac] 40 mg PO DAILY 28 Days cap 07/12/19 Thiamine [Vitamin B-1] 100 mg PO DAILY 28 Days tab 07/12/19 Allergies Allergy/AdvReac Type Severity Reaction Status Date / Time No Known Allergies Allergy Verified 08/28/19 17:42 Review of Systems ROS Statement: Those systems with pertinent positive or pertinent negative responses have been documented in the HPI. ROS Other: All systems not noted in ROS Statement are negative. Past Medical History Past Medical History: Hypertension Additional Past Medical History / Comment(s): Alcohol abuse, chronic anxiety, depression, possible bipolar disorder, possible PTSD History of Any Multi-Drug Resistant Organisms: None Reported Past Surgical History: Orthopedic Surgery Additional Past Surgical History / Comment(s): Herniated discs in back Past Anesthesia/Blood Transfusion Reactions: No Reported Reaction Past Psychological History: Anxiety, Depression, PTSD Smoking Status: Current every day smoker Past Alcohol Use History: Daily, Heavy Past Drug Use History: None Reported - Past Family History Father Family Medical History: AFIB Additional Family Medical History / Comment(s): "His dad has to take medication for his heart" Mother Additional Family Medical History / Comment(s): "Grandmother of esophageal cancer and aunt of brain cancer." General Exam Limitations: no limitations Course Vital Signs 08/28/19 15:47 Temperature 97.4 F L Pulse Rate 97 Respiratory 18 Rate Blood Pressure 121/83 O2 Sat by Pulse 98 Oximetry Medical Decision Making - Lab Data Result diagrams: 08/28/19 16:45 08/28/19 16:45 Lab Results 01/26/20 01/26/20 01/26/20 Range/Units 16:44 16:45 16:45 WBC 5.1 (3.8-10.6) k/uL RBC 4.95 (4.30-5.90) m/uL Hgb 15.5 (13.0-17.5) gm/dL Hct 46.7 (39.0-53.0) % MCV 94.4 (80.0-100.0) fL MCH 31.2 (25.0-35.0) pg MCHC 33.1 (31.0-37.0) g/dL RDW 12.8 (11.5-15.5) % Plt Count 349 (150-450) k/uL Neutrophils % 42 % Lymphocytes % 35 % Monocytes % 16 % Eosinophils % 0 % Basophils % 3 % Neutrophils # 2.2 (1.3-7.7) k/uL Lymphocytes # 1.8 (1.0-4.8) k/uL Monocytes # 0.8 (0-1.0) k/uL Eosinophils # 0.0 (0-0.7) k/uL Basophils # 0.2 (0-0.2) k/uL Sodium 141 (137-145) mmol/L Potassium 4.2 (3.5-5.1) mmol/L Chloride 104 (98-107) mmol/L Carbon Dioxide 26 (22-30) mmol/L Anion Gap 11 mmol/L BUN 4 L (9-20) mg/dL Creatinine 0.76 (0.66-1.25) mg/dL Est GFR (CKD-EPI)AfAm >90 (>60 ml/min/1.73 sqM) Est GFR (CKD-EPI)NonAf >90 (>60 ml/min/1.73 sqM) Glucose 108 H (74-99) mg/dL POC Glucose (mg/dL) 108 H (75-99) mg/dL POC Glu [employer] ID Dulce Garsia Calcium 9.4 (8.4-10.2) mg/dL Magnesium 1.8 (1.6-2.3) mg/dL Serum Alcohol 215 H* mg/dL Disposition Clinical Impression: Alcohol abuse, Withdrawal symptoms, alcohol Disposition: ADMITTED IP TO THIS HOSP Condition: Fair Referrals: [facility],Clinic [Primary Care Provider] - 1-2 days Decision Time: 18:13
[2019-08-28] MEDS ORDERED: THIAMINE 100 MG/ML 2 ML VIAL IM STA ×2 (16:29→16:30)
[2019-08-28] MEDS ORDERED: FOLIC ACID 1 MG TAB PO STA (16:29)
[2019-08-28] MEDS ORDERED: MULTIVITAMINS, THERA 1 EACH TAB PO STA (16:29)
[2019-08-28] MEDS ORDERED: LORazepam 2 MG/ML INJ IV STA (16:29)
[2019-08-28] MEDS ORDERED: SODIUM CHLORIDE 0.9% 1,000 ML IV STA (16:29)
[2019-08-28] MEDS ORDERED: LORazepam 2 MG/ML INJ IV PRN ×2 (16:30)
[2019-08-28 16:47] LABS: Glucose,Whole Blood 108 mg/dL (75-99)
[2019-08-28 17:18] LABS: African American GFR (CKD) >90 (>60 ml/min/1.73 sqM); Anion Gap 11 mmol/L; Basophils # (A) 0.2 k/uL (0-0.2); Basophils % (A) 3 %; Blood Urea Nitrogen 4 mg/dL (9-20); Calcium 9.4 mg/dL (8.4-10.2); Carbon Dioxide 26 mmol/L (22-30); Chloride 104 mmol/L (98-107); Eosinophils % (A) 0 %; Glucose 108 mg/dL (74-99); HCT 46.7 % (39.0-53.0); HGB 15.5 gm/dL (13.0-17.5); Lymphocytes # (A) 1.8 k/uL (1.0-4.8); Lymphocytes % (A) 35 %; MCH 31.2 pg (25.0-35.0); MCHC 33.1 g/dL (31.0-37.0); MCV 94.4 fL (80.0-100.0); Magnesium 1.8 mg/dL (1.6-2.3); Mean Platelet Volume 7.1; Monocytes # (A) 0.8 k/uL (0-1.0); Monocytes % (A) 16 %; Neutrophils # (A) 2.2 k/uL (1.3-7.7); Neutrophils % (A) 42 %; Non-African American GFR(CKD) >90 (>60 ml/min/1.73 sqM); Platelet Count 349 k/uL (150-450); Potassium 4.2 mmol/L (3.5-5.1); RBC 4.95 m/uL (4.30-5.90); RDW 12.8 % (11.5-15.5); Sodium 141 mmol/L (137-145); WBC 5.1 k/uL (3.8-10.6)
[2019-08-28] MEDS ORDERED: NALOXONE 0.4 MG/ML 1 ML VIAL IV PRN (18:10)
[2019-08-28] MEDS ORDERED: SODIUM CHLORIDE 0.9% 1,000 ML IV SCH (18:15)
[2019-08-28 20:01] LABS: Alcohol 215 mg/dL
[2019-08-28] MEDS: LORazepam 2 MG/ML INJ IV PRN (22:22)
[2019-08-29] MEDS: LORazepam 2 MG/ML INJ IV PRN ×2 (01:39→05:05)
[2019-08-29] MEDS ORDERED: CHOLECALCIFEROL 1,000 UNIT TAB PO SCH (11:15)
[2019-08-29] MEDS ORDERED: FLUoxetine HCL 20 MG CAP PO SCH (11:15)
[2019-08-29 12:57] LABS: Albumin 4.5 g/dL (3.5-5.0); Bilirubin, Delta 0.2 mg/dL (0.0-0.2); Bilirubin,Unconjugated 0.2 mg/dL (0.0-1.1); Total Bilirubin 0.4 mg/dL (0.2-1.3); Total Protein 7.8 g/dL (6.3-8.2)
[2019-08-29 14:06] VITALS: BP 143/95; PULSE 95; RESP 18; TEMP 97.8
--- NOTE | 2019-08-29 21:53 | HP ---
HISTORY AND PHYSICAL This is a combined history and physical and discharge summary. HISTORY AND PHYSICAL/DISCHARGE SUMMARY: CHIEF COMPLAINT: Alcohol intoxication withdrawal. HISTORY OF PRESENT ILLNESS: This 49-year-old gentleman with a past medical history of multiple medical problems including hypertension, history of EtOH abuse, chronic anxiety, depression, history of PTSD, history of bipolar, history of nicotine dependence, daily alcohol intake, being followed by the [facility] in [place], in the outpatient setting, was having heavy drinking, which is increased in intensity, according to him. The patient came to [facility] Emergency room with complaints of alcohol intoxication and some tremors and early withdrawal symptoms. Patient admitted to the hospital for further evaluation and treatment. CIWA protocol was initiated. There is no history of fever, rigors or chills. No history of headache, loss of consciousness or seizures. PAST MEDICAL HISTORY: History of hypertension, history EtOH abuse, history of anxiety, depression, PTSD, history of bipolar. MEDICATIONS: Home medications are: 1. Vivitrol 380 mg p.o. q.28 days. 2. Turmeric 500 mg p.o. daily. 3. Vitamin B1 100 mg daily. 4. Prozac 40 mg p.o. daily. 5. Vitamin D3 2000 daily. 6. Librium 25 mg p.o. t.i.d. ALLERGIES: None. FAMILY HISTORY: Family history of atrial fibrillation. SOCIAL HISTORY: History of smoking, history of alcohol intake with significant amounts as mentioned earlier. REVIEW OF SYSTEMS: ENT: No diminished vision. No diminished hearing. CARDIOVASCULAR: No angina or palpitations. RESPIRATIONS: No cough. No hemoptysis. GI no nausea or vomiting. no dysuria. NERVOUS SYSTEM: No numbness or weakness. Otherwise as mentioned earlier. ALLERGY/IMMUNOLOGY: No asthma or hayfever. MUSCULOSKELETAL as mentioned earlier. HEMATOLOGY/ONCOLOGY: No history of anemia. ENDOCRINE: History of diabetes and hypothyroidism. CONSTITUTIONAL: As mentioned earlier. DERMATOLOGY: Negative. RHEUMATOLOGY: Negative. PSYCHIATRIC: As mentioned earlier. PHYSICAL EXAMINATION: Alert and oriented times three. Pulse is 95, blood pressure 143/95, respiration 18, temperature 97.8, pulse ox 98% on room air. HEENT: Conjunctivae normal. Oral mucosa moist. NECK is no jugular venous distention. No carotid bruit. No lymph node enlargement. Cardiovascular systems: S1, S2 muffled. RESPIRATIONS: Breath sounds diminished in the bases. No rhonchi. No crackles. ABDOMEN: Soft, nontender. No mass palpable. LEGS: No edema. No swelling. NERVOUS SYSTEM: Higher functions as mentioned earlier. Moves all 4 limbs. No focal motor or sensory deficits. LYMPHATICS: No lymph nodes palpable in the neck, axillae or groin. SKIN: No ulcers, rashes or bleeding. JOINTS: No active deforming arthropathy. NERVOUS SYSTEM: Minimal diffuse tremors present. Gait is noted. Gait is normal. LABS: WBC 5.2, hemoglobin 15.5, sodium 140, potassium 4.2 and glucose 108. Alcohol 215. ASSESSMENT: 1. Acute alcohol intoxication, alcohol withdrawal. 2. History of hypertension. 3. History of chronic anxiety, depression, bipolar. 4. History of PTSD. 5. History of continued ongoing nicotine dependence. 6. FULL CODE. RECOMMENDATIONS AND DISCUSSION: In this 49-year-old gentleman who presented with multiple medical issues, at this time, I recommend to continue current medications. The patient is extremely keen on going home at this time. The discussion was held with and also both were keen on taking him home at this time. The patient reports that the patient has got a class to be taken tonight and the patient is able to ambulate and the patient will be discharged in stable condition with guarded prognosis. Recommend close followup with primary physician as well as alcohol rehab and possible counseling. Discharge recommendations are as follows: 1. Turmeric extract 500 mg p.o. daily. 2. Vitamin D3 1000 mg p.o. daily. 3. Vivitrol 380 mg p.o. every 28 days. 4. Librium 25 mg t.i.d. 5. Prozac 40 mg p.o. daily. 6. Vitamin B1 100 mg p.o. daily. 7. Follow up with Dr. Shi in 2-3 days. 8. Follow up labs. 9. No alcohol. No smoking as before. Once again the patient is being discharged in stable condition with guarded prognosis and the patient and family are extremely keen on the patient going home. MMODL / VICN: [id number] /
[2019-08-30] MEDS ORDERED: THIAMINE 100 MG TAB PO SCH (09:00)
== END 2019-08-29 16:20 | disposition home or self-care (01) | DRG 897 ==
LOC: EC 15:46 → 6NMEDSUR 18:10
PROVIDERS: ADMIT Hospitalist; ATTEND Hospitalist
DX: F10.230 Alcohol dependence with withdrawal, uncomplicated (principal); F10.220 Alcohol dependence with intoxication, uncomplicated; F31.9 Bipolar disorder, unspecified; I10 Essential (primary) hypertension; F41.9 Anxiety disorder, unspecified; F43.10 Post-traumatic stress disorder, unspecified; F17.200 Nicotine dependence, unspecified, uncomplicated; Y90.7 Blood alcohol level of 200-239 mg/100 ml; Z71.6 Tobacco abuse counseling; Z79.899 Other long term (current) drug therapy; Z98.890 Other specified postprocedural states; Z80.8 Family history of malignant neoplasm of other organs or systems; Z80.0 Family history of malignant neoplasm of digestive organs; Z82.49 Family history of ischemic heart disease and other diseases of the circulatory system
CPT/HCPCS: 36415; 80048; 80076; 80320; 83735; 85025; 96361; 96372; 96374; 99284

== ENCOUNTER 2019-09-24 12:01 | Emergency (ER) | payer OTHER ==
[2019-09-24 12:55] LABS: Amphetamine Screen,Urine Not Detected (NotDetected); Barbiturate Screen,Urine Not Detected (NotDetected); Benzodiazepines Screen,Urine Detected (NotDetected); Cocaine Screen,Urine Not Detected (NotDetected); Methadone Screen, Urine Not Detected (NotDetected); Opiate Screen,Urine Not Detected (NotDetected); Oxycodone Screen, Urine Not Detected (NotDetected); Phencyclidine Screen,Urine Not Detected (NotDetected); Tricyclic Antidepressant,Urine Not Detected (NotDetected); Urn Cannabinoid Scrn Not Detected (NotDetected)
--- NOTE | 2019-09-24 13:02 | ED ---
Psych HPI - General Source: patient, police, RN notes reviewed, old records reviewed Mode of arrival: ambulatory - History of Present Illness MD Complaint: suicidal ideation, feels depressed, other <Angel Walls - Last Filed: 09/24/19 13:19> <Van Mcmullen - Last Filed: 09/25/19 01:27> <Maurice Melvin - Last Filed: 09/25/19 09:42> <Nika Lynhc - Last Filed: 09/26/19 23:41> - General Chief Complaint: Psychiatric Symptoms Stated Complaint: mental health Time Seen by Provider: 09/24/19 12:10 - History of Present Illness Initial Comments: This is a 49-year-old male with a history depression and history of alcoholism and hypertension who is brought in under petition by police he apparently has been depressed is suicidal he states that he has no one to talk to talk to his . He states she will talk to them. He's been cooperative. He states he was in the [employer] for 30 years and was a [employer]. He does have some issues going from this. He admits alcohol denies any drugs at this time. (Angel Walls) - Related Data Home Medications Medication Instructions Recorded Confirmed Cholecalciferol [Vitamin D3 (25 1,000 unit PO DAILY 08/28/19 09/24/19 Mcg = 1000 Iu)] Turmeric Root Extract [Turmeric] 500 mg PO DAILY 08/28/19 09/24/19 Vivitrol 380mg 380 mg IM Q28D 08/29/19 09/24/19 Gabapentin [Neurontin] 400 mg PO TID 09/24/19 09/24/19 Naloxone HCl [Narcan] 4 mg NASAL ONCE PRN 09/24/19 09/24/19 Previous Rx's Medication Instructions Recorded FLUoxetine HCL [PROzac] 40 mg PO DAILY 28 Days cap 07/12/19 Thiamine [Vitamin B-1] 100 mg PO DAILY 28 Days tab 07/12/19 Allergies Allergy/AdvReac Type Severity Reaction Status Date / Time No Known Allergies Allergy Verified 09/24/19 13:21 Review of Systems ROS Other: All systems not noted in ROS Statement are negative. <Angel aWlls - Last Filed: 09/24/19 13:19> ROS Other: All systems not noted in ROS Statement are negative. <Van Mcmullen - Last Filed: 09/25/19 01:27> ROS Other: All systems not noted in ROS Statement are negative. <Maurice Melvin - Last Filed: 09/25/19 09:42> ROS Other: All systems not noted in ROS Statement are negative. <Nika Lynch - Last Filed: 09/26/19 23:41> ROS Statement: Those systems with pertinent positive or pertinent negative responses have been documented in the HPI. Past Medical History Past Medical History: Hypertension Additional Past Medical History / Comment(s): Alcohol abuse, chronic anxiety, depression, possible bipolar disorder, possible PTSD History of Any Multi-Drug Resistant Organisms: None Reported Past Surgical History: Orthopedic Surgery Additional Past Surgical History / Comment(s): Herniated discs in back Past Anesthesia/Blood Transfusion Reactions: No Reported Reaction Past Psychological History: Anxiety, Depression, PTSD Smoking Status: Current every day smoker Past Alcohol Use History: Daily, Heavy Past Drug Use History: None Reported - Past Family History Father Family Medical History: AFIB Additional Family Medical History / Comment(s): "His dad has to take medication for his heart" Mother Additional Family Medical History / Comment(s): "Grandmother of esophageal cancer and aunt of brain cancer." <Angel Walls - Last Filed: 09/24/19 13:19> General Exam General appearance: alert, in no apparent distress Head exam: Present: atraumatic, normocephalic, normal inspection Eye exam: Present: normal appearance, PERRL, EOMI. Absent: scleral icterus, conjunctival injection, periorbital swelling ENT exam: Present: normal exam, mucous membranes moist Neck exam: Present: normal inspection. Absent: tenderness, meningismus, lymphadenopathy Respiratory exam: Present: normal lung sounds bilaterally. Absent: respiratory distress, wheezes, rales, rhonchi, stridor Cardiovascular Exam: Present: regular rate, normal rhythm, normal heart sounds. Absent: systolic murmur, diastolic murmur, rubs, gallop, clicks GI/Abdominal exam: Present: soft, normal bowel sounds. Absent: distended, tende rness, guarding, rebound, rigid Extremities exam: Present: normal inspection, full ROM, normal capillary refill. Absent: tenderness, pedal edema, joint swelling, calf tenderness Back exam: Present: normal inspection Neurological exam: Present: alert, oriented X3, CN II-XII intact Psychiatric exam: Present: depressed, flat affect, suicidal ideation Skin exam: Present: warm, dry, intact, normal color. Absent: rash <Anegl Walls - Last Filed: 09/24/19 13:19> - General Exam Comments Initial Comments: Is a well-developed well-nourished awake alert oriented 3 male he does have the smell of alcohol conjoiners on his breath (Angel Walls) Course <TitiAngel - Last Filed: 09/24/19 13:19> <Van Mcmullen - Last Filed: 09/25/19 01:27> Vital Signs 09/24/19 09/24/19 09/24/19 12:05 17:00 22:30 Temperature 97.5 F L Pulse Rate 93 84 Respiratory 18 16 18 Rate Blood Pressure 122/80 142/81 O2 Sat by Pulse 98 96 Oximetry 09/25/19 09/25/19 09/25/19 04:00 09:33 11:32 Temperature 97.9 F Pulse Rate 90 89 90 Respiratory 18 16 16 Rate Blood Pressure 150/98 145/91 150/87 O2 Sat by Pulse 98 97 97 Oximetry - Reevaluation(s) Reevaluation #1: 09/24/19 13:19 I did review the petition as well as a pickup order. Patient does have history of possible bipolar disorder as well as family history of schizophrenia (Angel Walls) 09/25/19 01:27 Patient was endorsed to me by Dr. Walls (secondary to shift change) with the EPS nurse evaluation still pending. Patient's labs are fairly unremarkable. Patient's petition was completed myself. Patient is still awaiting disposition by EPS nurse. Will endorsed the patient to Dr. Lynch at this time (secondary to shift end). (Van Mcmullen) Medical Decision Making - Lab Data Result diagrams: 09/24/19 20:00 09/24/19 20:00 <Van Mcmullen - Last Filed: 09/25/19 01:27> - Lab Data Result diagrams: 09/24/19 20:00 09/24/19 20:00 <Maurice Melvin - Last Filed: 09/25/19 09:42> - Lab Data Result diagrams: 09/24/19 20:00 09/24/19 20:00 <Nika Lynch - Last Filed: 09/26/19 23:41> - Medical Decision Making The patient was signed out to me from Dr. Mcmullen. I evaluated the patient myself. He is reporting suicidal thoughts. He is requesting a nicotine patch and gum. He feels extremity anxious and therefore he is given a dose of Ativan. I did fill out a cert on the patient. [place]. Patient will be signed out Dr. Melvin (Nika Lynch) - Lab Data Lab Results 09/24/19 09/24/19 09/24/19 Range/Units 12:12 12:12 20:00 WBC 9.4 (3.8-10.6) k/uL RBC 5.08 (4.30-5.90) m/uL Hgb 16.3 (13.0-17.5) gm/dL Hct 47.6 (39.0-53.0) % MCV 93.6 (80.0-100.0) fL MCH 32.1 (25.0-35.0) pg MCHC 34.3 (31.0-37.0) g/dL RDW 12.7 (11.5-15.5) % Plt Count 381 (150-450) k/uL Neutrophils % 70 % Lymphocytes % 22 % Monocytes % 6 % Eosinophils % 2 % Basophils % 0 % Neutrophils # 6.6 (1.3-7.7) k/uL Lymphocytes # 2.0 (1.0-4.8) k/uL Monocytes # 0.6 (0-1.0) k/uL Eosinophils # 0.1 (0-0.7) k/uL Basophils # 0.0 (0-0.2) k/uL Sodium (137-145) mmol/L Potassium (3.5-5.1) mmol/L Chloride (98-107) mmol/L Carbon Dioxide (22-30) mmol/L Anion Gap mmol/L BUN (9-20) mg/dL Creatinine (0.66-1.25) mg/dL Est GFR (CKD-EPI)AfAm (>60 ml/min/1.73 sqM) Est GFR (CKD-EPI)NonAf (>60 ml/min/1.73 sqM) Glucose (74-99) mg/dL Calcium (8.4-10.2) mg/dL Total Bilirubin (0.2-1.3) mg/dL AST (17-59) U/L ALT (4-49) U/L Alkaline Phosphatase (38-126) U/L Total Protein (6.3-8.2) g/dL Albumin (3.5-5.0) g/dL Urine Color Yellow Urine Appearance Turbid (Clear) Urine pH 5.5 (5.0-8.0) Ur Specific [place] 1.016 (1.001-1.035) Urine Protein Trace H (Negative) Urine Glucose (UA) Negative (Negative) Urine Ketones Negative (Negative) Urine Blood Negative (Negative) Urine Nitrite Negative (Negative) Urine Bilirubin Negative (Negative) Urine Urobilinogen <2.0 (<2.0) mg/dL Ur Leukocyte Esterase Negative (Negative) Urine WBC 2 (0-5) /hpf Ur Squamous Epith Cells 1 (0-4) /hpf Uric Acid Crystals Few H (None) /hpf Urine Mucus Many H (None) /hpf Urine Opiates Screen Not Detected (NotDetected) Ur Oxycodone Screen Not Detected (NotDetected) Urine Methadone Screen Not Detected (NotDetected) Ur Propoxyphene Screen Not Detected (NotDetected) Ur Barbiturates Screen Not Detected (NotDetected) U Tricyclic Antidepress Not Detected (NotDetected) Ur Phencyclidine Scrn Not Detected (NotDetected) Ur Amphetamines Screen Not Detected (NotDetected) U Methamphetamines Scrn Not Detected (NotDetected) U Benzodiazepines Scrn Detected H (NotDetected) Urine Cocaine Screen Not Detected (NotDetected) U Marijuana (THC) Screen Not Detected (NotDetected) Serum Alcohol mg/dL 09/24/19 09/25/19 Range/Units 20:00 04:15 WBC (3.8-10.6) k/uL RBC (4.30-5.90) m/uL Hgb (13.0-17.5) gm/dL Hct (39.0-53.0) % MCV (80.0-100.0) fL MCH (25.0-35.0) pg MCHC (31.0-37.0) g/dL RDW (11.5-15.5) % Plt Count (150-450) k/uL Neutrophils % % Lymphocytes % % Monocytes % % Eosinophils % % Basophils % % Neutrophils # (1.3-7.7) k/uL Lymphocytes # (1.0-4.8) k/uL Monocytes # (0-1.0) k/uL Eosinophils # (0-0.7) k/uL Basophils # (0-0.2) k/uL Sodium 139 (137-145) mmol/L Potassium 4.2 (3.5-5.1) mmol/L Chloride 100 (98-107) mmol/L Carbon Dioxide 30 (22-30) mmol/L Anion Gap 9 mmol/L BUN 9 (9-20) mg/dL Creatinine 0.76 (0.66-1.25) mg/dL Est GFR (CKD-EPI)AfAm >90 (>60 ml/min/1.73 sqM) Est GFR (CKD-EPI)NonAf >90 (>60 ml/min/1.73 sqM) Glucose 111 H (74-99) mg/dL Calcium 9.3 (8.4-10.2) mg/dL Total Bilirubin 0.4 (0.2-1.3) mg/dL AST 33 (17-59) U/L ALT 24 (4-49) U/L Alkaline Phosphatase 71 (38-126) U/L Total Protein 7.0 (6.3-8.2) g/dL Albumin 4.1 (3.5-5.0) g/dL Urine Color Urine Appearance (Clear) Urine pH (5.0-8.0) Ur Specific [place] (1.001-1.035) Urine Protein (Negative) Urine Glucose (UA) (Negative) Urine Ketones (Negative) Urine Blood (Negative) Urine Nitrite (Negative) Urine Bilirubin (Negative) Urine Urobilinogen (<2.0) mg/dL Ur Leukocyte Esterase (Negative) Urine WBC (0-5) /hpf Ur Squamous Epith Cells (0-4) /hpf Uric Acid Crystals (None) /hpf Urine Mucus (None) /hpf Urine Opiates Screen (NotDetected) Ur Oxycodone Screen (NotDetected) Urine Methadone Screen (NotDetected) Ur Propoxyphene Screen (NotDetected) Ur Barbiturates Screen (NotDetected) U Tricyclic Antidepress (NotDetected) Ur Phencyclidine Scrn (NotDetected) Ur Amphetamines Screen (NotDetected) U Methamphetamines Scrn (NotDetected) U Benzodiazepines Scrn (NotDetected) Urine Cocaine Screen (NotDetected) U Marijuana (THC) Screen (NotDetected) Serum Alcohol <10 mg/dL Disposition <Angel Walls - Last Filed: 09/24/19 13:19> <Van Mcmullen - Last Filed: 09/25/19 01:27> Time of Disposition: 09:42 <Maurice Melvin - Last Filed: 09/25/19 09:42> Is patient prescribed a controlled substance at d/c from ED?: No <Nika Lynch - Last Filed: 09/26/19 23:41> Clinical Impression: Suicidal ideation, Depression Disposition: TRANSFER TO PSYCH HOSP/UNIT Referrals: [facility],Clinic [Primary Care Provider] - 1-2 days
[2019-09-24] MEDS ORDERED: LORazepam 1 MG TAB PO STA (13:08)
[2019-09-24] MEDS ORDERED: NICOTINE 21MG/24HR PATCH TRANSDERM STA (13:08)
[2019-09-24] MEDS ORDERED: ONDANSETRON ODT 4 MG TAB PO STA (20:38)
[2019-09-24] MEDS ORDERED: ACETAMINOPHEN TAB 500 MG TAB PO STA (20:38)
[2019-09-24 22:35] LABS: Basophils % (A) 0 %; Eosinophils # (A) 0.1 k/uL (0-0.7); Eosinophils % (A) 2 %; HCT 47.6 % (39.0-53.0); HGB 16.3 gm/dL (13.0-17.5); Lymphocytes % (A) 22 %; MCH 32.1 pg (25.0-35.0); MCHC 34.3 g/dL (31.0-37.0); MCV 93.6 fL (80.0-100.0); Mean Platelet Volume 6.9; Monocytes # (A) 0.6 k/uL (0-1.0); Monocytes % (A) 6 %; Neutrophils # (A) 6.6 k/uL (1.3-7.7); Neutrophils % (A) 70 %; Platelet Count 381 k/uL (150-450); RBC 5.08 m/uL (4.30-5.90); RDW 12.7 % (11.5-15.5); WBC 9.4 k/uL (3.8-10.6)
[2019-09-24 22:46] LABS: ALT 24 U/L (4-49); AST 33 U/L (17-59); African American GFR (CKD) >90 (>60 ml/min/1.73 sqM); Albumin 4.1 g/dL (3.5-5.0); Alkaline Phosphatase 71 U/L (38-126); Anion Gap 9 mmol/L; Blood Urea Nitrogen 9 mg/dL (9-20); Calcium 9.3 mg/dL (8.4-10.2); Carbon Dioxide 30 mmol/L (22-30); Chloride 100 mmol/L (98-107); Glucose 111 mg/dL (74-99); Non-African American GFR(CKD) >90 (>60 ml/min/1.73 sqM); Potassium 4.2 mmol/L (3.5-5.1); Sodium 139 mmol/L (137-145); Total Bilirubin 0.4 mg/dL (0.2-1.3)
[2019-09-24 22:48] LABS: Appearance,Urine Turbid (Clear); Bilirubin,Urine Negative (Negative); Blood,Urine Negative (Negative); Color,Urine Yellow; Glucose,Urine (UA) Negative (Negative); Ketones,Urine Negative (Negative); Leukocyte Esterase,Urine Negative (Negative); Mucus,Urine Many /hpf; Nitrite,Urine Negative (Negative); PH, Urine 5.5 (5.0-8.0); Protein,Urine Trace (Negative); Specific Gravity,Urine 1.016 (1.001-1.035); Squamous Epithelial Cell,Urine 1 /hpf (0-4); Uric Acid Crystals,Urine Few /hpf; Urobilinogen,Urine <2.0 mg/dL (<2.0); WBC,Urine 2 /hpf (0-5)
[2019-09-25] MEDS ORDERED: ONDANSETRON ODT 4 MG TAB PO STA (02:37)
[2019-09-25] MEDS ORDERED: NICOTINE POLACRILEX 2 MG GUM BUCCAL PRN (02:37)
[2019-09-25] MEDS ORDERED: LORazepam 1 MG TAB PO STA (04:01)
[2019-09-25 09:38] VITALS: RESP 16; TEMP 97.9
[2019-09-25 11:32] VITALS: BP 150/87; PULSE 90
== END 2019-09-25 11:28 ==
LOC: EC 12:01
DX: F32.9 Major depressive disorder, single episode, unspecified (principal); R45.851 Suicidal ideations; F17.200 Nicotine dependence, unspecified, uncomplicated; Z81.8 Family history of other mental and behavioral disorders; Z79.899 Other long term (current) drug therapy
CPT/HCPCS: 82075; 36415 ×2; 80053; 85025; 81001; 80306; 80320; 99285; S4990

== ENCOUNTER 2021-04-13 11:36 | Emergency (ER) | payer OTHER ==
[2021-04-13 11:45] VITALS: BP 138/97; PULSE 80; RESP 18; TEMP 98.2
[2021-04-13] MEDS ORDERED: PROPARACAINE 0.5% OPHTH DROPS 15 ML BTL LEFT EYE STA (12:12)
[2021-04-13] MEDS ORDERED: FLUORESCEIN STRIPS 1 MG STRIP LEFT EYE ONE (12:13)
--- NOTE | 2021-04-13 13:26 | ED ---
Eye Problem HPI - General Chief complaint: Eye Problems Stated complaint: eye injury Time Seen by Provider: 04/13/21 12:08 Source: patient Mode of arrival: ambulatory Limitations: no limitations - History of Present Illness Initial comments: 50-year-old male presents emergency room with reported right eye pain. States that it started night when he was driving home from a restaurant. [place] as if he got something in his eye. Attempts to flush it vigorously at home without success. On Thursday he went to an urgent care. He was started on Raoul ytrim drops for a corneal abrasion. States he's gotten 4 doses in however is having worsening symptoms. Admits to photophobia, foreign body sensation and pain with leftward gaze. She does not wear contacts or glasses. Has history of PRK eye surgery in 2017. Admits to copious tearing and drainage. No other alleviating, precipitating or modifying factors - Related Data Home Medications Medication Instructions Recorded Confirmed Cholecalciferol [Vitamin D3 (25 1,000 unit PO DAILY 08/28/19 09/24/19 Mcg = 1000 Iu)] Turmeric Root Extract [Turmeric] 500 mg PO DAILY 08/28/19 09/24/19 Vivitrol 380mg 380 mg IM Q28D 08/29/19 09/24/19 Gabapentin [Neurontin] 400 mg PO TID 09/24/19 09/24/19 Naloxone HCl [Narcan] 4 mg NASAL ONCE PRN 09/24/19 09/24/19 Previous Rx's Medication Instructions Recorded FLUoxetine HCL [PROzac] 40 mg PO DAILY 28 Days cap 07/12/19 Thiamine [Vitamin B-1] 100 mg PO DAILY 28 Days tab 07/12/19 Ketorolac 0.5% Ophth Soln [Acular 1 drops RIGHT EYE QID #3 ml 04/13/21 0.5%] Moxifloxacin [Vigamox 0.5%] 1 drop RIGHT EYE QID #3 ml 04/13/21 Allergies Allergy/AdvReac Type Severity Reaction Status Date / Time No Known Allergies Allergy Verified 04/13/21 11:45 Review of Systems ROS Statement: Those systems with pertinent positive or pertinent negative responses have been documented in the HPI. ROS Other: All systems not noted in ROS Statement are negative. Past Medical History Past Medical History: Hypertension Additional Past Medical History / Comment(s): Alcohol abuse, chronic anxiety, depression, possible bipolar disorder, possible PTSD History of Any Multi-Drug Resistant Organisms: None Reported Past Surgical History: Orthopedic Surgery Additional Past Surgical History / Comment(s): Herniated discs in back Past Anesthesia/Blood Transfusion Reactions: No Reported Reaction Past Psychological History: Anxiety, Depression, PTSD Smoking Status: Current every day smoker Past Alcohol Use History: Heavy Past Drug Use History: None Reported - Past Family History Father Family Medical History: AFIB Additional Family Medical History / Comment(s): "His dad has to take medication for his heart" Mother Additional Family Medical History / Comment(s): "Grandmother of esophageal cancer and aunt of brain cancer." General Exam Limitations: no limitations General appearance: alert, in no apparent distress Head exam: Present: atraumatic, normocephalic, normal inspection Eye exam: Present: normal appearance, PERRL, EOMI, conjunctival injection (right). Absent: scleral icterus, periorbital swelling, periorbital tenderness ENT exam: Present: normal exam, mucous membranes moist Course Vital Signs 04/13/21 11:40 Temperature 98.2 F Pulse Rate 80 Respiratory 18 Rate Blood Pressure 138/97 O2 Sat by Pulse 96 Oximetry Medical Decision Making - Medical Decision Making On arrival patient was placed into room 21. Thorough history and physical was performed. Eye was numbed using proparacaine drops and stained with fluorescein. Slit lamp exam is performed and demonstrates corneal abrasion versus early ulcer to the 2 o'clock position. there are 2 separate areas each measuring 4 mm. No foreign body appreciated. Eyelid is everted. Eye pressures are obtained and are 11 consistently. Patient's visual acuity is 20/15 in the left eye, 20/25 in the right eye and 20/15 both eyes. I did call and speak with Dr. Roper. He recommends stopping the Polytrim eyedrops and changing to Vigamox. He also like the patient on Acular for pain control. He Is to be used every 4 hours, each 5 minutes apart. He can call to make an appointment to be seen in office if patient has any new or worsening symptoms he is asked to return to the emergency department. Patient agreed to the treatment plan and was discharged home in stable condition Disposition Clinical Impression: Corneal abrasion Disposition: HOME SELF-CARE Condition: Stable Instructions (If sedation given, give patient instructions): Corneal Abrasion (ED) Additional Instructions: Stop using the eye drops you were given at the urgent care. Use the two drops you were prescribed by us. Use them every 4 hours, 5 minutes apart. Call and make an appointment with your eye doctor or make an appt with Dr. Roper. Return to the ED for any new or worsening symptoms Prescriptions: Ketorolac 0.5% Ophth Soln [Acular 0.5%] 1 drops RIGHT EYE QID #3 ml Moxifloxacin [Vigamox 0.5%] 1 drop RIGHT EYE QID #3 ml Is patient prescribed a controlled substance at d/c from ED?: No Referrals: Nonstaff,Physician [Primary Care Provider] - 1-2 days Elli Pablo MD [STAFF PHYSICIAN] - 1-2 days Time of Disposition: 13:31
== END 2021-04-13 13:38 | disposition home or self-care (01) ==
LOC: EC 11:36
DX: S05.01XA Injury of conjunctiva and corneal abrasion without foreign body, right eye, initial encounter (principal); I10 Essential (primary) hypertension; F41.9 Anxiety disorder, unspecified; F32.9 Major depressive disorder, single episode, unspecified; F43.12 Post-traumatic stress disorder, chronic; F17.200 Nicotine dependence, unspecified, uncomplicated; X58.XXXA Exposure to other specified factors, initial encounter
CPT/HCPCS: 99283

== ENCOUNTER 2022-12-18 20:26 | Emergency (ER) | payer OTHER ==
[2022-12-18] MEDS ORDERED: IBUPROFEN 600 MG TAB PO STA (21:26)
--- NOTE | 2022-12-18 21:56 | XR ---
EXAMINATION TYPE: XR finger RT DATE OF EXAM: 12/18/2022 9:32 PM INDICATION: Patient age:Male; 52 years old; Reason for study: 5th finger injury; COMPARISON: None TECHNIQUE: Frontal, lateral and oblique views of the right hand were obtained. FINDINGS: Subluxation of the right fifth digit proximal interphalangeal joint. No evidence of fractur e. Soft tissue swelling around the digit. IMPRESSION: Subluxation/dislocation the proximal interphalangeal joint of the fifth digit on the right hand. No e vidence of fracture.
[2022-12-18] MEDS ORDERED: LIDOCAINE 1% INJ 10MG/ML (30 ML VIAL-PF) SQ ONE (22:04)
--- NOTE | 2022-12-18 23:09 | ED ---
Upper Extremity HPI - General Chief Complaint: Extremity Injury, Upper Stated Complaint: POSS BROKEN FINGER Time Seen by Provider: 12/18/22 21:21 Source: patient Mode of arrival: ambulatory Limitations: no limitations - History of Present Illness Initial Comments: Patient is a 52-year-old male presenting with chief complaint of injury to the right fifth finger. States that he injured at softball today when the ball hit the top of his finger. He is now unable to bend the finger and states that it feels like it is popped out of place. - Related Data Home Medications Medication Instructions Recorded Confirmed Cholecalciferol [Vitamin D3 (25 1,000 unit PO DAILY 08/28/19 09/24/19 Mcg = 1000 Iu)] Turmeric Root Extract [Turmeric] 500 mg PO DAILY 08/28/19 09/24/19 Vivitrol 380mg 380 mg IM Q28D 08/29/19 09/24/19 Gabapentin [Neurontin] 400 mg PO TID 09/24/19 09/24/19 Naloxone HCl [Narcan] 4 mg NASAL ONCE PRN 09/24/19 09/24/19 Previous Rx's Medication Instructions Recorded FLUoxetine HCL [PROzac] 40 mg PO DAILY 28 Days cap 07/12/19 Thiamine [Vitamin B-1] 100 mg PO DAILY 28 Days tab 07/12/19 Ketorolac 0.5% Ophth Soln [Acular 1 drops RIGHT EYE QID #3 ml 04/13/21 0.5%] Moxifloxacin [Vigamox 0.5%] 1 drop RIGHT EYE QID #3 ml 04/13/21 Allergies Allergy/AdvReac Type Severity Reaction Status Date / Time Opioids-Methadone and Related AdvReac Unknown Verified 12/18/22 21:16 Review of Systems ROS Statement: Those systems with pertinent positive or pertinent negative responses have been documented in the HPI. ROS Other: All systems not noted in ROS Statement are negative. Past Medical History Past Medical History: Hypertension Additional Past Medical History / Comment(s): Alcohol abuse, chronic anxiety, depression, possible bipolar disorder, possible PTSD History of Any Multi-Drug Resistant Organisms: None Reported Past Surgical History: Orthopedic Surgery Additional Past Surgical History / Comment(s): Herniated discs in back Past Anesthesia/Blood Transfusion Reactions: No Reported Reaction Past Psychological History: Anxiety, Depression, PTSD Smoking Status: Current every day smoker Past Alcohol Use History: Daily Past Drug Use History: None Reported - Past Family History Father Family Medical History: AFIB Additional Family Medical History / Comment(s): "His dad has to take medication for his heart" Mother Additional Family Medical History / Comment(s): "Grandmother of esophageal cancer and aunt of brain cancer." General Exam Limitations: no limitations General appearance: alert, in no apparent distress Head exam: Present: atraumatic, normocephalic, normal inspection Eye exam: Present: normal appearance, EOMI. Absent: scleral icterus, periorbital swelling Neck exam: Present: normal inspection, full ROM Extremities exam: Present: other (Obvious deformity to the right fifth finger, patient is unable to bend) Neurological exam: Present: alert, oriented X3, CN II-XII intact Psychiatric exam: Present: normal affect, normal mood Skin exam: Present: warm, dry, intact, normal color. Absent: rash Course Vital Signs 12/18/22 12/18/22 21:13 23:18 Temperature 98.1 F 97.7 F Pulse Rate 99 103 H Respiratory 22 18 Rate Blood Pressure 123/84 108/75 O2 Sat by Pulse 98 97 Oximetry Medical Decision Making - Medical Decision Making Was pt. sent in by a medical professional or institution (, PA, ORTHOPEDICS NURSE, urgent care, hospital, or shelter...) When possible be specific @ -No Did you speak to anyone other than the patient for history (EMS, parent, family, police, friend...)? What history was obtained from this source @ -No Did you review nursing and triage notes (agree or disagree)? Why? @ -I reviewed and agree with nursing and triage notes Were old charts reviewed (outside hosp., previous admission, EMS record, old EKG, old radiological studies, urgent care reports/EKG's, shelter records)? Report findings @ -No old charts were reviewed Differential Diagnosis (chest pain, altered mental status, abdominal pain women, abdominal pain men, vaginal bleeding, weakness, fever, dyspnea, syncope, headache, dizziness, GI bleed, back pain, seizure, CVA, palpatations, mental health, musculoskeletal)? @ -Differential Musculoskeletal Muscular strain, contusion, ligament sprain, fracture, arthritis, septic arthritis, bursitis, cellulitis, muscle spasm, nerve compression, DVT, arterial occlusion, herpes zoster, electrolyte abnormality, tumor.... This is not meant to be in all inclusive list EKG interpreted by me (3pts min.). @ -As above X-rays interpreted by me (1pt min.). @ -X-ray shows dislocation of the proximal phalanx of the fifth digit. CT interpreted by me (1pt min.). @ -None done U/S interpreted by me (1pt. min.). @ -None done What testing was considered but not performed or refused? (CT, X-rays, U/S, labs)? Why? @ -None What meds were considered but not given or refused? Why? @ -None Did you discuss the management of the patient with other professionals (professionals i.e. , PA, ORTHOPEDICS NURSE, lab, RT, psych nurse, rn social work, certified art therapist, teacher, liaison officer, shelter case manager)? Give summary @ -No Was smoking cessation discussed for >3mins.? @ -No Was critical care preformed (if so, how long)? @ -No Were there social determinants of health that impacted care today? How? (Homelessness, low income, unemployed, alcoholism, drug addiction, transportation, low edu. Level, literacy, decrease access to med. care, snf, rehab)? @ -No Was there de-escalation of care discussed even if they declined (Discuss DNR or withdrawal of care, Hospice)? DNR status @ -No What co-morbidities impacted this encounter? (DM, HTN, Smoking, COPD, CAD, Cancer, CVA, ARF, Chemo, Hep., AIDS, mental health diagnosis, sleep apnea, morbid obesity)? @ -None Was patient admitted / discharged? Hospital course, mention meds given and route, prescriptions, significant lab abnormalities, going to OR and other pertinent info. @ -Patient is a 52-year-old male presenting with chief complaint of injury to the right fifth digit today. Unable to bend the finger. X-ray shows dislocation of the proximal phalanx. Digital block is performed and fingers reduced. I reviewed the post reduction x-ray and reduction appears successful. Patient has full range of motion. He is placed in a finger splint and instructed to follow-up with his PCP. Follow-up with PCP. Report back to ER with any new or worsening symptoms. Discussed return parameters and answered all questions. Patient conveyed verbal understanding and agreed to the plan. I discussed this case in detail with my attending Dr. Junior Undiagnosed new problem with uncertain prognosis? @ -No Drug Therapy requiring intensive monitoring for toxicity (Heparin, Nitro, Insulin, Cardizem)? @ -No Were any procedures done? @ -Digital block and finger reduction Diagnosis/symptom? @ -Finger dislocation Acute, or Chronic, or Acute on Chronic? @ -Acute Uncomplicated (without systemic symptoms) or Complicated (systemic symptoms)? @ -Uncomplicated Side effects of treatment? @ -No Exacerbation, Progression, or Severe Exacerbation? @ -No Poses a threat to life or bodily function? How? (Chest pain, [place], [place], pneumonia, PE, COPD, DKA, ARF, appy, cholecystitis, CVA, Diverticulitis, Homicidal, Suicidal, threat to staff... and all critical care pts) @ -No Disposition Clinical Impression: Finger dislocation Disposition: HOME SELF-CARE Condition: Good Instructions (If sedation given, give patient instructions): Finger Dislocation (ED) Additional Instructions: Follow-up with PCP. Report back to ER with any new or worsening symptoms. Is patient prescribed a controlled substance at d/c from ED?: No Referrals: None,Stated [Primary Care Provider] - 1-2 days Time of Disposition: 23:08
[2022-12-18 23:19] VITALS: BP 108/75; PULSE 103; RESP 18; TEMP 97.7
--- NOTE | 2022-12-19 12:42 | XR ---
EXAMINATION TYPE: XR finger RT DATE OF EXAM: 12/18/2022 COMPARISON: 12/18/2022 HISTORY: Post reduction TECHNIQUE: Three views are submitted. FINDINGS: The osseous structures are intact. The joint spaces are preserved and there is no acute fracture or dislocation. IMPRESSION: 1. Post reduction view demonstrates near-anatomic alignment.
== END 2022-12-18 23:20 | disposition home or self-care (01) ==
LOC: EC 20:26
DX: S63.256A Unspecified dislocation of right little finger, initial encounter (principal); I10 Essential (primary) hypertension; F41.9 Anxiety disorder, unspecified; F32.A Depression, unspecified; F17.200 Nicotine dependence, unspecified, uncomplicated; Z88.8 Allergy status to other drugs, medicaments and biological substances; W21.07XA Struck by softball, initial encounter
CPT/HCPCS: 73140; 99283; J2001

== ENCOUNTER 2023-06-21 14:21 | Emergency (ER) | payer OTHER ==
[2023-06-21] MEDS ORDERED: LORazepam 2 MG/ML INJ IV STA (14:49)
[2023-06-21] MEDS ORDERED: SODIUM CHLORIDE 0.9% 1,000 ML IV STA (14:50)
--- NOTE | 2023-06-21 14:51 | ED ---
General Adult HPI - General Source: patient, RN notes reviewed Mode of arrival: EMS Limitations: no limitations <Rolando Chung - Last Filed: 06/21/23 14:50> <Angel Menchaca - Last Filed: 06/22/23 00:06> - General Chief complaint: Alcohol Stated complaint: anxiety Time Seen by Provider: 06/21/23 14:23 - History of Present Illness Initial comments: Patient is a pleasant 52-year-old male presenting to the emergency department with concerns with alcohol withdrawal. Patient does drink daily, last was yesterday. Patient felt anxious this morning. Patient did take 2 THC Hollis that seems to have helped. Patient has decreased appetite however no nausea at this time. Patient did have a small episode of emesis yesterday. No abdominal pain. No confusion. Patient previously has been to rehab 3 times. (Rolando Chung) - Related Data Home Medications Medication Instructions Recorded Confirmed FLUoxetine HCL [PROzac] 40 mg PO DAILY 06/21/23 06/21/23 Famotidine [Pepcid] 20 mg PO DAILY 06/21/23 06/21/23 Metoclopramide [Reglan] 10 mg PO TID PRN 06/21/23 06/21/23 Nicotine Polacrilex [Nicotine 2 mg BUCCAL Q1H PRN 06/21/23 06/21/23 Lozenge] Prazosin [Minipress] 1 mg PO HS 06/21/23 06/21/23 Sucralfate [Carafate] 1 gm PO ACHS 06/21/23 06/21/23 Allergies Allergy/AdvReac Type Severity Reaction Status Date / Time Opioids-Methadone and Related AdvReac Unknown Verified 06/21/23 20:53 Review of Systems ROS Other: All systems not noted in ROS Statement are negative. Constitutional: Denies: fever Eyes: Denies: eye pain ENT: Denies: ear pain Respiratory: Denies: cough Cardiovascular: Denies: chest pain Endocrine: Denies: fatigue Gastrointestinal: Reports: as per HPI Genitourinary: Denies: dysuria Psychiatric: Reports: anxiety. Denies: suicidal thoughts <Rolando Chung - Last Filed: 06/21/23 14:50> ROS Other: All systems not noted in ROS Statement are negative. <Angel Menchaca - Last Filed: 06/22/23 00:06> ROS Statement: Those systems with pertinent positive or pertinent negative responses have been documented in the HPI. Past Medical History Past Medical History: Hypertension Additional Past Medical History / Comment(s): Alcohol abuse, chronic anxiety, depression, possible bipolar disorder, possible PTSD History of Any Multi-Drug Resistant Organisms: None Reported Past Surgical History: Orthopedic Surgery Additional Past Surgical History / Comment(s): Herniated discs in back Past Anesthesia/Blood Transfusion Reactions: No Reported Reaction Past Psychological History: Anxiety, Depression, PTSD Smoking Status: Current every day smoker Past Alcohol Use History: Daily Past Drug Use History: None Reported - Past Family History Father Family Medical History: AFIB Additional Family Medical History / Comment(s): "His dad has to take medication for his heart" Mother Additional Family Medical History / Comment(s): "Grandmother of esophageal cancer and aunt of brain cancer." <Rolando Chung - Last Filed: 06/21/23 14:50> General Exam Limitations: no limitations General appearance: alert, in no apparent distress Head exam: Present: normocephalic Eye exam: Present: normal appearance ENT exam: Present: normal oropharynx Neck exam: Present: normal inspection Respiratory exam: Present: normal lung sounds bilaterally Cardiovascular Exam: Present: regular rate, normal rhythm, normal heart sounds GI/Abdominal exam: Present: soft. Absent: distended, tenderness Extremities exam: Present: normal inspection Neurological exam: Present: alert Psychiatric exam: Present: normal affect, normal mood Skin exam: Present: normal color <Rolando Chung - Last Filed: 06/21/23 14:50> Course Vital Signs 06/21/23 06/21/23 06/21/23 14:32 14:35 16:09 Temperature 98.6 F 98.6 F Pulse Rate 90 90 92 Respiratory 20 20 18 Rate Blood Pressure 133/89 140/86 133/91 O2 Sat by Pulse 98 98 96 Oximetry 06/21/23 18:00 Temperature Pulse Rate 90 Respiratory 20 Rate Blood Pressure 130/80 O2 Sat by Pulse 98 Oximetry Medical Decision Making - Lab Data Result diagrams: 06/21/23 17:55 06/21/23 17:55 <Angel Menchaca - Last Filed: 06/22/23 00:06> - Medical Decision Making Was pt. sent in by a medical professional or institution (Dr., PA, ENGINE REPAIRER, urgent care, hospital, or long-term...) When possible be specific @ -[No] Did you speak to anyone other than the patient for history (EMS, parent, family, police, friend...)? What history was obtained from this source @ -[No] Did you review nursing and triage notes (agree or disagree)? Why? @ -[I reviewed and agree with nursing and triage notes] Were old charts reviewed (outside hosp., previous admission, EMS record, old EKG, old radiological studies, urgent care reports/EKG's, long-term records)? Report findings @ -[No old charts were reviewed] Differential Diagnosis (chest pain, altered mental status, abdominal pain women, abdominal pain men, vaginal bleeding, weakness, fever, dyspnea, syncope, headache, dizziness, GI bleed, back pain, seizure, CVA, palpatations, mental health, musculoskeletal)? @Differential Mental Health Depression, anxiety, bipolar, psychosis, schizophrenia, borderline personality, situational depression, adjustment disorder, behavioral disorder, brain tumor, malingering, substance abuse, encephalopathy, medication reaction, dementia, hypothyroidism, degenerative neurologic disorder, lupus.... This is not meant to be all-inclusive list EKG interpreted by me (3pts min.). @ -[As above] X-rays interpreted by me (1pt min.). @ -[Sinus rhythm rate of 74, TX interval 136, QRS duration 83, QTC [address] segment elevation. CT interpreted by me (1pt min.). @ -[None done] U/S interpreted by me (1pt. min.). @ -[None done] What testing was considered but not performed or refused? (CT, X-rays, U/S, labs)? Why? @ -[None] What meds were considered but not given or refused? Why? @ -[None] Did you discuss the management of the patient with other professionals (professionals i.e. SOFY Rich, ENGINE REPAIRER, lab, RT, psych nurse, social media designer, pocket and pulley machine operator, teacher, credit risk review officer, correctional casework specialist)? Give summary @ -[No] Was smoking cessation discussed for >3mins.? @ -[No] Was critical care preformed (if so, how long)? @ -[No] Were there social determinants of health that impacted care today? How? (Homelessness, low income, unemployed, alcoholism, drug addiction, transportation, low edu. Level, literacy, decrease access to med. care, shelter, rehab)? @ -[No] Was there de-escalation of care discussed even if they declined (Discuss DNR or withdrawal of care, Hospice)? DNR status @ -[No] What co-morbidities impacted this encounter? (DM, HTN, Smoking, COPD, CAD, Can cer, CVA, ARF, Chemo, Hep., AIDS, mental health diagnosis, sleep apnea, morbid obesity)? @ -[None] Was patient admitted / discharged? Hospital course, mention meds given and route, prescriptions, significant lab abnormalities, going to OR and other pertinent info. @Patient transferred for further psychiatric care. Undiagnosed new problem with uncertain prognosis? @ -[No] Drug Therapy requiring intensive monitoring for toxicity (Heparin, Nitro, Insulin, Cardizem)? @ -[No] Were any procedures done? @ -[No] Diagnosis/symptom? @ -[default] Acute, or Chronic, or Acute on Chronic? @ -[default] Uncomplicated (without systemic symptoms) or Complicated (systemic symptoms)? @ -[default] Side effects of treatment? @ -[No] Exacerbation, Progression, or Severe Exacerbation? @ -[No] Poses a threat to life or bodily function? How? (Chest pain, [place], [place], pneumonia, PE, COPD, DKA, ARF, appy, cholecystitis, CVA, Diverticulitis, Homicidal, Suicidal, threat to staff... and all critical care pts) @ -[No] (Angel Menchaca) - Lab Data Lab Results 06/21/23 06/21/23 06/21/23 Range/Units 15:31 15:31 17:55 WBC 10.6 (3.8-10.6) k/uL RBC 4.24 L (4.30-5.90) m/uL Hgb 13.4 (13.0-17.5) gm/dL Hct 39.5 (39.0-53.0) % MCV 93.1 (80.0-100.0) fL MCH 31.5 (25.0-35.0) pg MCHC 33.9 (31.0-37.0) g/dL RDW 12.9 (11.5-15.5) % Plt Count 327 (150-450) k/uL MPV 7.3 Sodium (137-145) mmol/L Potassium (3.5-5.1) mmol/L Chloride (98-107) mmol/L Carbon Dioxide (22-30) mmol/L Anion Gap mmol/L BUN (9-20) mg/dL Creatinine (0.66-1.25) mg/dL Est GFR (CKD-EPI)AfAm (>60 ml/min/1.73 sqM) Est GFR (CKD-EPI)NonAf (>60 ml/min/1.73 sqM) Glucose (74-99) mg/dL Calcium (8.4-10.2) mg/dL Total Bilirubin (0.2-1.3) mg/dL AST (17-59) U/L ALT (4-49) U/L Alkaline Phosphatase (38-126) U/L Total Protein (6.3-8.2) g/dL Albumin (3.5-5.0) g/dL Urine Color Yellow Urine Appearance Clear (Clear) Urine pH 7.0 (5.0-8.0) Ur Specific Carrier 1.022 (1.001-1.035) Urine Protein 20 (Negative) Urine Glucose (UA) Negative (Negative) Urine Ketones 1+ (Negative) Urine Blood Negative (Negative) Urine Nitrite Negative (Negative) Urine Bilirubin Negative (Negative) Urine Urobilinogen 2.0 (<2.0) mg/dL Ur Leukocyte Esterase Negative (Negative) Urine RBC <1 (0-5) /hpf Urine WBC <1 (0-5) /hpf Urine Mucus Few H (None) /hpf Urine Opiates Screen Not Detected (NotDetected) Ur Oxycodone Screen Not Detected (NotDetected) Urine Methadone Screen Not Detected (NotDetected) Ur Propoxyphene Screen Not Detected (NotDetected) Ur Barbiturates Screen Not Detected (NotDetected) U Tricyclic Antidepress Not Detected (NotDetected) Ur Phencyclidine Scrn Not Detected (NotDetected) Ur Amphetamines Screen Not Detected (NotDetected) U Methamphetamines Scrn Not Detected (NotDetected) U Benzodiazepines Scrn Detected H (NotDetected) Urine Cocaine Screen Not Detected (NotDetected) U Marijuana (THC) Screen Detected H (NotDetected) SARS-CoV-2 (PCR) (Not Detectd) 06/21/23 06/21/23 Range/Units 17:55 18:19 WBC (3.8-10.6) k/uL RBC (4.30-5.90) m/uL Hgb (13.0-17.5) gm/dL Hct (39.0-53.0) % MCV (80.0-100.0) fL MCH (25.0-35.0) pg MCHC (31.0-37.0) g/dL RDW (11.5-15.5) % Plt Count (150-450) k/uL MPV Sodium 137 (137-145) mmol/L Potassium 2.8 L (3.5-5.1) mmol/L Chloride 110 H (98-107) mmol/L Carbon Dioxide 25 (22-30) mmol/L Anion Gap 2 mmol/L BUN 6 L (9-20) mg/dL Creatinine 0.61 L (0.66-1.25) mg/dL Est GFR (CKD-EPI)AfAm >90 (>60 ml/min/1.73 sqM) Est GFR (CKD-EPI)NonAf >90 (>60 ml/min/1.73 sqM) Glucose 82 (74-99) mg/dL Calcium 6.2 L* (8.4-10.2) mg/dL Total Bilirubin 0.3 (0.2-1.3) mg/dL AST 20 (17-59) U/L ALT 22 (4-49) U/L Alkaline Phosphatase 47 (38-126) U/L Total Protein 4.4 L (6.3-8.2) g/dL Albumin 2.2 L (3.5-5.0) g/dL Urine Color Urine Appearance (Clear) Urine pH (5.0-8.0) Ur Specific Carrier (1.001-1.035) Urine Protein (Negative) Urine Glucose (UA) (Negative) Urine Ketones (Negative) Urine Blood (Negative) Urine Nitrite (Negative) Urine Bilirubin (Negative) Urine Urobilinogen (<2.0) mg/dL Ur Leukocyte Esterase (Negative) Urine RBC (0-5) /hpf Urine WBC (0-5) /hpf Urine Mucus (None) /hpf Urine Opiates Screen (NotDetected) Ur Oxycodone Screen (NotDetected) Urine Methadone Screen (NotDetected) Ur Propoxyphene Screen (NotDetected) Ur Barbiturates Screen (NotDetected) U Tricyclic Antidepress (NotDetected) Ur Phencyclidine Scrn (NotDetected) Ur Amphetamines Screen (NotDetected) U Methamphetamines Scrn (NotDetected) U Benzodiazepines Scrn (NotDetected) Urine Cocaine Screen (NotDetected) U Marijuana (THC) Screen (NotDetected) SARS-CoV-2 (PCR) Not Detected (Not Detectd) Disposition <Rolando Chung - Last Filed: 06/21/23 14:50> Is patient prescribed a controlled substance at d/c from ED?: No Time of Disposition: 00:06 - Out of Hospital Transfer - Req. Specs Out of Hospital Transfer - Requested Specifics: Psychiatric Non-ICU (Transferred for further psychiatric care.) <Angel Menchaca - Last Filed: 06/22/23 00:06> Clinical Impression: Alcohol abuse, Depression Disposition: OTHER INSTITUTION NOT DEFINED Condition: Stable Referrals: None,Stated [REFERRING] - 1-2 days
[2023-06-21] MEDS: THIAMINE 100 MG/ML 2 ML VIAL IVP SCH (15:12)
[2023-06-21 15:56] LABS: Amphetamine Screen,Urine Not Detected (NotDetected); Barbiturate Screen,Urine Not Detected (NotDetected); Benzodiazepines Screen,Urine Detected (NotDetected); Cocaine Screen,Urine Not Detected (NotDetected); Methadone Screen, Urine Not Detected (NotDetected); Opiate Screen,Urine Not Detected (NotDetected); Oxycodone Screen, Urine Not Detected (NotDetected); Phencyclidine Screen,Urine Not Detected (NotDetected); Tricyclic Antidepressant,Urine Not Detected (NotDetected); Urn Cannabinoid Scrn Detected (NotDetected)
[2023-06-21] MEDS ORDERED: NICOTINE PO PRN (17:55)
[2023-06-21 18:04] LABS: HCT 39.5 % (39.0-53.0); HGB 13.4 gm/dL (13.0-17.5); MCH 31.5 pg (25.0-35.0); MCHC 33.9 g/dL (31.0-37.0); MCV 93.1 fL (80.0-100.0); Mean Platelet Volume 7.3; Platelet Count 327 k/uL (150-450); RBC 4.24 m/uL (4.30-5.90); RDW 12.9 % (11.5-15.5); WBC 10.6 k/uL (3.8-10.6)
[2023-06-21 18:34] LABS: AST 20 U/L (17-59); African American GFR (CKD) >90 (>60 ml/min/1.73 sqM); Albumin 2.2 g/dL (3.5-5.0); Alkaline Phosphatase 47 U/L (38-126); Anion Gap 2 mmol/L; Blood Urea Nitrogen 6 mg/dL (9-20); Carbon Dioxide 25 mmol/L (22-30); Chloride 110 mmol/L (98-107); Glucose 82 mg/dL (74-99); Non-African American GFR(CKD) >90 (>60 ml/min/1.73 sqM); Potassium 2.8 mmol/L (3.5-5.1); Sodium 137 mmol/L (137-145); Total Bilirubin 0.3 mg/dL (0.2-1.3); Total Protein 4.4 g/dL (6.3-8.2)
[2023-06-21 18:54] LABS: Mucus,Urine Few /hpf; RBC,Urine <1 /hpf (0-5); WBC,Urine <1 /hpf (0-5)
[2023-06-21 19:18] LABS: Calcium 6.2 mg/dL (8.4-10.2)
[2023-06-21] MEDS ORDERED: CALCIUM GLUCONATE IN NACL 2 GM in SALINE 1 100ML.BAG IVPB ONE (19:21)
[2023-06-21 19:38] LABS: ALT 22 U/L (4-49)
[2023-06-21 19:58] LABS: Appearance,Urine Clear (Clear); Bilirubin,Urine Negative (Negative); Blood,Urine Negative (Negative); Color,Urine Yellow; Glucose,Urine (UA) Negative (Negative); Ketones,Urine 1+ (Negative); Leukocyte Esterase,Urine Negative (Negative); Nitrite,Urine Negative (Negative); Protein,Urine 20 (Negative); Specific Gravity,Urine 1.022 (1.001-1.035)
[2023-06-22 00:42] LABS: African American GFR (CKD) >90 (>60 ml/min/1.73 sqM); Alcohol <10 mg/dL; Anion Gap 9 mmol/L; Blood Urea Nitrogen 9 mg/dL (9-20); Calcium 10.1 mg/dL (8.4-10.2); Carbon Dioxide 30 mmol/L (22-30); Chloride 99 mmol/L (98-107); Glucose 88 mg/dL (74-99); Non-African American GFR(CKD) >90 (>60 ml/min/1.73 sqM); Potassium 4.2 mmol/L (3.5-5.1); Sodium 138 mmol/L (137-145)
[2023-06-22 03:56] LABS: Basophils % (A) 0 %; Eosinophils # (A) 0.1 k/uL (0-0.7); Eosinophils % (A) 1 %; HCT 45.3 % (39.0-53.0); HGB 14.9 gm/dL (13.0-17.5); Lymphocytes # (A) 2.8 k/uL (1.0-4.8); Lymphocytes % (A) 31 %; MCH 30.8 pg (25.0-35.0); MCHC 32.9 g/dL (31.0-37.0); MCV 93.5 fL (80.0-100.0); Mean Platelet Volume 7.3; Monocytes # (A) 0.6 k/uL (0-1.0); Monocytes % (A) 7 %; Neutrophils # (A) 5.4 k/uL (1.3-7.7); Neutrophils % (A) 59 %; Platelet Count 318 k/uL (150-450); RBC 4.84 m/uL (4.30-5.90); WBC 9.2 k/uL (3.8-10.6)
[2023-06-22 04:06] LABS: ALT 32 U/L (4-49); AST 29 U/L (17-59); African American GFR (CKD) >90 (>60 ml/min/1.73 sqM); Albumin 3.5 g/dL (3.5-5.0); Alkaline Phosphatase 73 U/L (38-126); Anion Gap 7 mmol/L; Blood Urea Nitrogen 10 mg/dL (9-20); Calcium 9.3 mg/dL (8.4-10.2); Carbon Dioxide 28 mmol/L (22-30); Chloride 102 mmol/L (98-107); Glucose 91 mg/dL (74-99); Non-African American GFR(CKD) >90 (>60 ml/min/1.73 sqM); Potassium 4.3 mmol/L (3.5-5.1); Sodium 137 mmol/L (137-145); Total Bilirubin 0.6 mg/dL (0.2-1.3); Total Protein 6.2 g/dL (6.3-8.2)
[2023-06-22] MEDS: THIAMINE 100 MG/ML 2 ML VIAL IVP SCH (08:22)
[2023-06-22] MEDS ORDERED: METOCLOPRAMIDE 10 MG TAB PO STA (08:30)
[2023-06-22] MEDS ORDERED: SUCRALFATE 1 GM TAB PO STA (08:30)
[2023-06-22] MEDS ORDERED: FLUoxetine HCL 20 MG CAP PO STA (08:31)
[2023-06-22] MEDS ORDERED: LORazepam 2 MG/ML INJ IV STA (08:31)
[2023-06-22] MEDS ORDERED: LORazepam 1 MG TAB PO STA (15:07)
[2023-06-23] MEDS ORDERED: LORazepam 1 MG TAB PO STA (01:56)
[2023-06-23 06:32] VITALS: TEMP 97.5
[2023-06-23 07:57] VITALS: BP 133/95; PULSE 77; RESP 18
== END 2023-06-23 07:56 | disposition other institution (70) ==
LOC: EC 14:21
DX: F10.10 Alcohol abuse, uncomplicated (principal); F32.A Depression, unspecified; I10 Essential (primary) hypertension; F41.9 Anxiety disorder, unspecified; F17.200 Nicotine dependence, unspecified, uncomplicated; Z79.899 Other long term (current) drug therapy; Z88.5 Allergy status to narcotic agent; Z20.822 Contact with and (suspected) exposure to COVID-19
CPT/HCPCS: 99284 ×2; 96365 ×2; 96375 ×4; 96361 ×6; 82075; 36415 ×2; 93005; 80053 ×2; 80048; 85025; 85027; 81001; 80306; 80320; 87635; J2060 ×2; J3411 ×2; J0613

== ENCOUNTER 2024-02-03 04:10 | Emergency (ER) | payer OTHER ==
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
== END 2024-02-03 06:11 | disposition other institution (70) ==
LOC: EC 04:10
DX: Z02.89 Encounter for other administrative examinations (principal); F17.200 Nicotine dependence, unspecified, uncomplicated; Z88.5 Allergy status to narcotic agent
CPT/HCPCS: 99284